=== PATIENT | male | born 1945 | race Caucasian/White ===

== ENCOUNTER → 2016-07-21 | Outpatient (CLI) | payer BC ==
[~2016-07-21] MED LIST: ACET-1487 PO; AMLO-110 PO; ASPI81TA21 PO; ATOR-24 PO; CARV6.252 PO; CYCL10TA6 PO; ENOX100I SQ; FRS/40 PO; HYDR25TA4 PO; LISI40TA PO; MELO7.5T5 PO; MULT-506 PO; NRN300 PO; OMEG10007 PO; OMEP20TA PO; OXYC-609 PO; RXC5 PO; TAMS0.4C38 PO; TRAM-10 PO; TRAM100T PO; TRAM1TAB96 PO; WARF2.5T8 PO; WARF5TAB7 PO; WARF5TAB90 PO
== END | disposition home or self-care (01) ==
LOC: C.PATHSPEC 17:46
PROVIDERS: ATTEND Plastic Surgery
DX: D03.61 Melanoma in situ of right upper limb, including shoulder (principal); D23.5 Other benign neoplasm of skin of trunk

== ENCOUNTER → 2016-09-15 | Outpatient (CLI) | payer BC ==
[2016-09-15 10:34] LABS: CALCIUM 8.8 mg/dl (8.5-10.1)
[2016-09-15 10:39] LABS: ALT/SGPT 36 U/L (12-78); AST/SGOT 14 U/L (15-37); BLOOD UREA NITROGEN 28 mg/dl (7-18); BUN/CREATININE RATIO 28.4 (10-20); CARBON DIOXIDE 29 mmol/L (21-32); CHLORIDE 107 mmol/L (98-107); CHOLESTEROL 184 mg/dl (0-200); CREATININE 0.99 mg/dl (0.60-1.40); GLUCOSE 91 mg/dl (70-99); POTASSIUM 4.4 mmol/L (3.5-5.1); SODIUM 143 mmol/L (136-145); TRIGLYCERIDES 56 mg/dl (0-150); VERY LOW DENSITY LIPOPROT CALC 11 mg/dl
[2016-09-15 10:40] LABS: ALB/GLOB RATIO 1.2 (0.9-2); ALKALINE PHOSPHATASE 59 U/L (45-117); CHOLESTEROL/HDL RATIO 2.4; HDL CHOLESTEROL 76 mg/dl; LDL CHOLESTEROL CALCULATED 97 mg/dl
[2016-09-15 10:50] LABS: ESTIMATED AVERAGE GLUCOSE 120 mg/dl; HA1C FLAG Normal (Normal)
== END | disposition home or self-care (01) ==
LOC: C.LABBC 08:25
PROVIDERS: ATTEND Family Medicine
DX: E78.5 Hyperlipidemia, unspecified (principal); I10 Essential (primary) hypertension; R73.01 Impaired fasting glucose

== ENCOUNTER → 2016-09-20 | Outpatient (CLI) | payer BC | END | disposition home or self-care (01) | LOC: C.PATHSPEC 16:35 | PROVIDERS: ATTEND Dermatology | DX: L72.0 Epidermal cyst (principal) ==

== ENCOUNTER 2016-10-28 07:29 | Inpatient (IN) | payer BC, OTHER ==
[2016-10-07 08:46] VITALS: Ht 165.1 cm; Wt 104.1 kg
--- NOTE | 2016-10-07 09:37 | PAT Medication Instructions ---
Service Date Oct 07, 2016. Current Home Medication List Acetaminophen (Tylenol Arthritis Ext Rel), 1-2 TAB PO Q8 PRN Amlodipine (Norvasc), 5 MG PO BID Aspirin Enteric Coated (Ecotrin Or Generic), 2 TABS PO QAM Atorvastatin (Lipitor), 40 MG PO QPM Carvedilol (Coreg), 6.25 MG PO BID Fish Oil (Beulah-3), 1 CAP PO DAILYBL Gabapentin (Gabapentin), 300 MG PO TID Hydrochlorothiazide (Hctz), 1 TAB PO QAM Lisinopril (Zestril), 40 MG PO QAM Meloxicam (Mobic), 15 MG PO QAM Multivitamin (Multivitamin), 1 TAB PO QAM Omeprazole (Omeprazole), 1 TAB PO QAM Tamsulosin Hcl (Flomax), 0.4 MG PO QAM Tramadol (Ultram), 50-100 MG PO Q4 PRN for Pain Tramadol Er (Ultram Er), 200 MG PO QPM PRN for Pain Medication Instructions For Your Scheduled Surgery - Check with surgeon/engraved roller inspector for instructions: Aspirin Enteric Coated (Ecotrin Or Generic), 2 81mg TABS PO QAM - Check with surgeon for instructions: Meloxicam (Mobic), 15 MG PO QAM - Hold the following medications 2 weeks prior to surgery: Fish Oil (Beulah-3), 1 CAP PO DAILYBL - Hold the following medications the morning of surgery: Tamsulosin Hcl (Flomax), 0.4 MG PO QAM Multivitamin (Multivitamin), 1 TAB PO QAM Hydrochlorothiazide (Hctz), 1 TAB PO QAM Lisinopril (Zestril), 40 MG PO QAM - Take the following medications the morning of surgery with a sip of water: Tramadol (Ultram), 50-100 MG PO Q4 PRN for Pain (okay to take up to 4 hours prior to surgery if needed) Tramadol Er (Ultram Er), 200 MG PO QPM PRN for Pain (okay to take up to 4 hours prior to surgery if needed) Omeprazole (Omeprazole), 1 TAB PO QAM Gabapentin (Gabapentin), 300 MG PO TID Carvedilol (Coreg), 6.25 MG PO BID Amlodipine (Norvasc), 5 MG PO BID Acetaminophen (Tylenol Arthritis Ext Rel), 1-2 TAB PO Q8 PRN (if needed) - Take the following medications as scheduled the night before surgery: Tramadol (Ultram), 50-100 MG PO Q4 PRN for Pain (if needed) Tramadol Er (Ultram Er), 200 MG PO QPM PRN for Pain (if needed) Gabapentin (Gabapentin), 300 MG PO TID Carvedilol (Coreg), 6.25 MG PO BID Atorvastatin (Lipitor), 40 MG PO QPM Amlodipine (Norvasc), 5 MG PO BID Acetaminophen (Tylenol Arthritis Ext Rel), 1-2 TAB PO Q8 PRN (if needed) If you have any questions please call us at [phone] or [phone] or [phone]
[2016-10-07 10:05] LABS: URINE APPEARANCE CLEAR (CLEAR); URINE BILIRUBIN NEG (NEG); URINE COLOR YELLOW; URINE NITRITE NEG (NEG); UROBILINOGEN NEG (NEG)
[2016-10-07 10:06] LABS: BASO % 0.4 %; BASO ABS # 0.02 K/uL (0-0.2); COMPLETE YES; EOS % 2.4 %; HEMATOCRIT 39.6 % (42-52); LYMPH % 32.5 %; LYMPH ABS # 1.51 K/uL (1.2-3.4); MEAN CELL VOLUME 89.8 fL (80-100); MEAN CORPUSCULAR HEMOGLOBIN 29.9 pg (25-34); MEAN CORPUSCULAR HGB CONC 33.3 g/dl (32-36); MONO % 8.2 %; NEUT % 56.5 %; PLATELET COUNT 149 K/uL (130-400); RED BLOOD COUNT 4.41 M/uL (4.7-6.1); WHITE BLOOD COUNT 4.65 K/uL (4.8-10.8)
[2016-10-07 10:10] LABS: MANUAL MICROSCOPIC REQUIRED? NO; REVIEW REQ? NO
--- NOTE | 2016-10-07 11:03 | DIAGNOSTIC IMAGING REPORT ---
CHEST PREADMISSION(PA/LAT) HISTORY:71 yearsMalePAT COMPARISON: Portable chest radiograph 07/15/2012. TECHNIQUE: PA and lateral views of the chest. FINDINGS: Cardiac silhouette is moderately enlarged. Prior median sternotomy and CABG. No pneumothorax, pleural effusion, focal airspace consolidation or overt pulmonary edema. Bones appear to be grossly intact. Multilevel anterior bridging osteophytes are noted. IMPRESSION: Cardiomegaly without acute cardiopulmonary process. The above report was generated using voice recognition software. It may contain grammatical, syntax or spelling errors. Electronically signed by: Vitor Danielle 10/07/2016 11:01 AM Dictated Date/Time: 10/07/2016 10:59 AM
[~2016-10-28] VITALS: Ht 165.1 cm; Wt 104.1 kg
[2016-10-28] VITALS (12 sets, daily range): BP systolic 125–153; BP diastolic 69–82; PULSE 61–92; TEMP 36.4–39.2; O2SAT 88–98
[~2016-10-28 07:29] MED LIST changes: -ACET-1487 PO; -AMLO-110 PO; -ASPI81TA21 PO; -ATOR-24 PO; -CARV6.252 PO; +CEFAZOLIN 2000 MG/60 ML D5W IV SCH; -CYCL10TA6 PO; -ENOX100I SQ; -FRS/40 PO; -HYDR25TA4 PO; +LACTATED RINGER'S 1000ML 1,000 ML IV SCH; -LISI40TA PO; -MULT-506 PO; -NRN300 PO; -OMEG10007 PO; -OMEP20TA PO; -OXYC-609 PO; -RXC5 PO; -TAMS0.4C38 PO; -TRAM-10 PO; -TRAM1TAB96 PO; -WARF2.5T8 PO; -WARF5TAB7 PO; -WARF5TAB90 PO
[2016-10-28] MEDS ORDERED: FENTANYL CITRATE INJ 50 MCG/1 ML 2 ML VIAL IV PRN (07:45)
[2016-10-28] MEDS ORDERED: EpHEDrine SULFATE INJ 50 MG/ML AMP IV PRN (07:45)
[2016-10-28] MEDS ORDERED: MoRPHine SULFATE 10 MG/ML CARP/VIAL IV PRN (07:45)
[2016-10-28] MEDS ORDERED: ATROPINE SULFATE 0.1 MG/ML 5ML SYR IV PRN (07:45)
[2016-10-28] MEDS ORDERED: ONDANSETRON INJ 2 MG/ML 2 ML VIAL IV PRN ×2 (07:45→13:45)
[2016-10-28] MEDS ORDERED: MIDAZOLAM HCL 1 MG/ML 2ML VIAL ONE (09:12)
[2016-10-28] MEDS ORDERED: FENTANYL CITRATE INJ 50 MCG/1 ML 2 ML VIAL ONE ×6 (09:12→13:35)
--- NOTE | 2016-10-28 09:21 | History & Physical Bridge Note ---
H&P Re-Evaluation Bridge Note: I have examined the patient, reviewed the History & Physical and in the interval since the performance of the History & Physical I have noted the following changes of clinical significance: No changes noted
--- NOTE | 2016-10-28 09:23 | History and Physical ---
History & Physical Date Oct 28, 2016. Chief Complaint Back and leg pain History of Present Illness The patient is a 71 year old male with complaints of Past Medical/Surgical History Medical Problems: (1) Acute urinary tract infection Additional History Hepatic Disease: No Endocrine Disorder: No Kidney Disease: No Hypertension: Yes Heart Disease: No Bleeding Tendencies: No Infectious Diseases: No Allergies Coded Allergies: No Known Allergies (Unverified , 10/28/16) Home Medications Scheduled Amlodipine (Norvasc), 5 MG PO BID Aspirin Enteric Coated (Ecotrin Or Generic), 2 TABS PO QAM Atorvastatin (Lipitor), 40 MG PO QPM Carvedilol (Coreg), 6.25 MG PO BID Fish Oil ([place]-3), 1 CAP PO DAILYBL Gabapentin (Gabapentin), 300 MG PO TID Hydrochlorothiazide (Hctz), 1 TAB PO QAM Lisinopril (Zestril), 40 MG PO QAM Meloxicam (Mobic), 15 MG PO QAM Multivitamin (Multivitamin), 1 TAB PO QAM Omeprazole (Omeprazole), 1 TAB PO QAM Tamsulosin Hcl (Flomax), 0.4 MG PO QAM Scheduled PRN Acetaminophen (Tylenol Arthritis Ext Rel), 1-2 TAB PO Q8 PRN Tramadol (Ultram), 50-100 MG PO Q4 PRN for Pain Tramadol Er (Ultram Er), 200 MG PO QPM PRN for Pain Physical Examination Skin: warm/dry, no rash Eyes: normal inspection, EOMI, sclerae normal ENT: normal ENT inspection, pharynx normal Head: normocephalic, atraumatic Neck: supple, no adenopathy, trachea midline Respiratory/Chest: lungs clear, normal breath sounds, no respiratory distress Cardiovascular: regular rate, rhythm, no edema, no murmur Abdomen / GI: normal bowel sounds, non tender Back: normal inspection Extremities: normal inspection, normal range of motion Neurologic/Psych: no motor/sensory deficits, alert, normal reflexes, oriented x 3 Diagnosis Lumbar spinal stenosis Plan of Treatment Lumbar decompression L2 to S1 with fusion and possible bilateral iliac bolts.
[2016-10-28] MEDS ORDERED: SODIUM CHLORIDE 0.9% PF 50 ML VIAL ONE (09:35)
[2016-10-28] MEDS ORDERED: BACITRACIN 50000 UNIT VIAL ONE (09:36)
[2016-10-28] MEDS ORDERED: BUPIVACAINE/EPINEPHRINE 0.5% MPF 1:200,000 10 ML VIAL ONE (09:38)
[2016-10-28] MEDS ORDERED: ALBUMIN HUMAN 5% 12.5 GM/250 ML VIAL IV ONE (09:46)
[2016-10-28] MEDS ORDERED: HYDROmorphone INJ 2 MG/ML SYR/VIAL ONE ×3 (10:36→13:39)
[2016-10-28] MEDS ORDERED: PROPOFOL IV EMULSION 10 MG/ML 20 ML VIAL IV ONE (11:59)
[2016-10-28] MEDS ORDERED: ONDANSETRON INJ 2 MG/ML 2 ML VIAL ONE ×2 (11:59→13:40)
[2016-10-28] MEDS ORDERED: ROCURONIUM BROMIDE 10 MG/ML 5 ML VIAL ONE (11:59)
[2016-10-28] MEDS ORDERED: LIDOCAINE HCL 2% 2 ML VIAL (20MG/ML) ONE (11:59)
[2016-10-28] MEDS ORDERED: DEXAMETHASONE SOD INJ 4 MG/ML VIAL ONE (11:59)
[2016-10-28] MEDS ORDERED: PHENYLEPHRINE 100MCG/ML 5ML SYR ONE ×2 (11:59→13:40)
[2016-10-28] MEDS ORDERED: EpHEDrine SULFATE 50MG/5ML SYR ONE ×2 (11:59→13:40)
[2016-10-28] MEDS: FLOSEAL HEMOSTATIC MATRIX 10ML TOP ONE (13:14)
[2016-10-28] MEDS ORDERED: FLOSEAL HEMOSTATIC MATRIX 10ML TOP ONE (13:25)
--- NOTE | 2016-10-28 13:30 | DIAGNOSTIC IMAGING REPORT ---
INTRAOPERATIVE RADIOGRAPHS CLINICAL HISTORY: L2-S1 spinal fusion. Fluoroscopy time: 39 seconds. FINDINGS: 4 spot fluoroscopic views of the lumbar spine are presented. There are changes from laminectomy and posterior fusion from L2 through S1. Interpedicular screws are present at all levels. The orthopedic hardware appears intact. Iliac bolts are in place. There is evidence of discectomy at L4-L5. IMPRESSION: Intraoperative images from L2 -S1 spinal fusion as above. Electronically signed by: Rios Rasmussen M.D. 10/28/2016 1:29 PM Dictated Date/Time: 10/28/2016 1:28 PM
[2016-10-28] MEDS ORDERED: SODIUM CHLORIDE 0.9% 1000ML 1,000 ML IV SCH (13:31)
[2016-10-28] MEDS ORDERED: VOLUVEN IN NSS ONE (13:38)
--- NOTE | 2016-10-28 13:39 | [facility] Operative Report ---
Operative Report Operative Date Oct 28, 2016. Pre-Operative Diagnosis Spinal Stenosis Post-Operative Diagnosis Spinal Stenosis Procedure(s) Performed Lumbar decompression medial facetectomies foraminotomies L2 3 L3 4 L4 5 L5-S1. #2 posterior spinal fusion L2 to S1. #3 bilateral SI joint fusion. #4 placement of posterior segmental instrumentation with bilateral iliac bolts L2 to S1. #5 interbody fusion L4 5. #6 placement peek cage 12 x 26 mm at L4 5. #7 placement of locally harvested morcellized autograft in the posterior lateral gutters and bilateral SI joints. #8 placement infuse collagen sponge by mask graft and posterior gutters Rocio bone graft in the interbody space. Surgeon Recreation Program Coordinator Surgeon(s) Dane Stoll PA-C Estimated Blood Loss 550ML Findings Severe spinal stenosis Specimens None per surgeon Description of Procedure Patient was met with preoperatively case discussed all questions are dressed with a point patient was taken back to the operative suite and after undergoing successful intubation placed in a prone position on the Babak table on top Eloy frame. All bony promises well-padded eyes inspected to ensure no external pressure. This point the lumbar spine was prepped and draped nostril fashion. Sharp dissection assistance of Bovie cautery performed onto an exposing the lamina and transverse processes of L2-L3 L4-L5 sacral alar in the bilateral SI joints. From a caudal to cephalad fashion complete laminectomy of L5 L4 L3 L2 was performed addressing severe lateral recess and foraminal disease. Pedicle screws were then placed in L2-L3 L4 L5 S1 levels bilaterally with assistance of fluoroscopy as well as bilateral iliac bolts. The appropriately sized chula was then placed. Through a transforaminal port and left complete discectomy of L4 5 was performed and plate could subcortical bleeding bone and a 12 x 26 mm peek cage filled Rocio bone grafting tapped in position. The chula locked and final position bilaterally including a cross- link. The transverse processes of L2-L3 L4-L5 sacral alar in the bilateral SI joints were then burred to subcortical bleeding bone. Infuse collagen sponge mask graft locally harvested morcellized autograft placed in the posterior lateral gutters SI joints. A 15 round ROSY drain and inserted. Incision then closed with 1 Vicryl in the fascia 2-0 Vicryl subcutaneously for Monocryl for final skin closure Steri-Strip sterile dressing placed. Patient awakened and taken to PACU stable condition. Please note Billy Stoll was present throughout the entire procedure involved in patient positioning complex portions of the procedure and final skin closure. I attest to the content of the Intraoperative Record and any orders documented therein. Any exceptions are noted below.
[2016-10-28] MEDS ORDERED: NEOSTIGMINE METHYLSULFATE 1 MG/ML 10ML VIAL ONE (13:40)
[2016-10-28] MEDS ORDERED: GLYCOPYRROLATE INJ 0.2 MG/ML VIAL ONE (13:40)
[2016-10-28] MEDS ORDERED: CEFAZOLIN SOD 1 GM VIAL ONE (13:44)
[2016-10-28] MEDS ORDERED: DO NOT ADMINISTER FLU VACCINE PRN ×3 (13:45)
[2016-10-28] MEDS ORDERED: SOD PHOSPHATE/SOD BIPHOSPHATE ENEMA 132 ML BTL PR PRN (13:45)
[2016-10-28] MEDS ORDERED: BISACODYL 10 MG SUPP PR PRN (13:45)
[2016-10-28] MEDS ORDERED: NALOXONE HCL 0.4 MG/1 ML VIAL/CARP IV PRN ×2 (13:45)
[2016-10-28] MEDS ORDERED: LORAZEPAM INJ 0.5 MG in SYRINGE 0.75 ML IV PRN (13:45)
[2016-10-28] MEDS ORDERED: MAGNESIUM HYDROXIDE SUSP 30 ML UDC PO PRN (13:45)
[2016-10-28] MEDS ORDERED: ACETAMINOPHEN 500 MG TAB PO PRN (13:45)
[2016-10-28] MEDS ORDERED: LORAZEPAM 0.5 MG TAB PO PRN (13:45)
[2016-10-28] MEDS ORDERED: ACETAMINOPHEN IV 100 ML IV PRN (13:45)
[2016-10-28] MEDS ORDERED: ALUMINUM/MAGNESIUM SUSP 30 ML UDC PO PRN (13:45)
[2016-10-28] MEDS ORDERED: PROMETHAZINE HCL INJ 12.5 MG in SODIUM CHLORIDE 0.9% 50ML 50 ML IV PRN (13:45)
[2016-10-28] MEDS ORDERED: DO NOT ADMINISTER PNEUMOCOCCAL VACCINE PRN ×2 (13:45)
[2016-10-28] MEDS ORDERED: FAMOTIDINE 20 MG TAB PO PRN (13:45)
[2016-10-28] MEDS ORDERED: hydrOXYzine HCL 25 MG TAB PO PRN (13:45)
[2016-10-28] MEDS ORDERED: HYDROmorphone HCL 0.5MG/ML 50 ML CASSETTE ONE (13:55)
--- NOTE | 2016-10-28 15:41 | Anesthesiology Progress Note ---
Anesthesia Post Op Note Date & Time Oct 28, 2016 at 15:41 Vital Signs Pain Intensity: 4 Vital Signs Past 12 Hours Date Time Temp Pulse Resp B/P (MAP) Pulse Ox O2 Delivery O2 Flow Rate FiO2 10/28/16 15:25 36.8 88 22 132/72 95 Nasal Cannula 2 10/28/16 15:15 90 16 131/72 96 Nasal Cannula 2 Arterial Line 10/28/16 15:05 85 18 135/69 94 Nasal Cannula 2 10/28/16 14:55 86 22 132/68 95 Nasal Cannula 2 Arterial Line 10/28/16 14:45 36.5 84 20 126/65 92 Nasal Cannula 2 10/28/16 14:35 80 22 127/65 93 Nasal Cannula 2 10/28/16 14:25 82 20 134/67 94 Mask 10 10/28/16 14:15 80 22 133/65 95 Mask 10 115/55 10/28/16 14:05 86 16 128/65 97 Mask 10 10/28/16 13:55 36.2 81 14 135/71 97 Mask 10 10/28/16 08:46 36.8 61 18 145/81 10/28/16 08:26 Room Air Notes Mental Status: alert / awake / arousable, participated in evaluation Pt Amnestic to Procedure: Yes Nausea / Vomiting: adequately controlled Pain: adequately controlled Airway Patency, RR, SpO2: stable & adequate BP & HR: stable & adequate Hydration State: stable & adequate Anesthetic Complications: no major complications apparent
[2016-10-28] MEDS: HYDROmorphone HCL 0.5MG/ML 50 ML CASSETTE IV PRN ×2 (16:27→23:12)
[2016-10-28] MEDS: SODIUM CHLORIDE 0.9% 1000ML 1,000 ML IV SCH ×2 (17:22→21:26)
[2016-10-28] MEDS: CEFAZOLIN IV 2,000 MG in DEXTROSE 5% 50ML 50 ML IV SCH (17:54)
[2016-10-28] MEDS ORDERED: ATORVASTATIN 40 MG TAB PO SCH (21:00)
[2016-10-28] MEDS: DEXAMETHASONE INJ 6 MG in SYRINGE 0 ML IV SCH (21:12)
[2016-10-28] MEDS: CARVEDILOL 6.25 MG TAB PO SCH (21:15)
[2016-10-28] MEDS: AMLODIPINE BESYLATE 5 MG TAB PO SCH (21:16)
[2016-10-28] MEDS: DOCUSATE SODIUM/SENNA 50/8.6MG TAB PO SCH (21:16)
[2016-10-28] MEDS: GABAPENTIN 300 MG CAP PO SCH (21:16)
[2016-10-28] MEDS ORDERED: NURSING DECISION MEDICATION ORDER SCH (22:30)
[2016-10-28] MEDS ORDERED: COUGH DROP (SUGAR FREE) LOZ 24 LOZ/1 BOX PO PRN (22:45)
[2016-10-29] MEDS: SODIUM CHLORIDE 0.9% 1000ML 1,000 ML IV SCH ×2 (02:21→13:59)
[2016-10-29] MEDS: CEFAZOLIN IV 2,000 MG in DEXTROSE 5% 50ML 50 ML IV SCH (02:21)
[2016-10-29 03:39] VITALS: BP 124/79; PULSE 82; TEMP 36.8; O2SAT 95
[2016-10-29] MEDS: DEXAMETHASONE INJ 6 MG in SYRINGE 0 ML IV SCH ×2 (03:40→12:48)
[2016-10-29] MEDS ORDERED: DC PCA SCH (06:00)
[2016-10-29] MEDS ORDERED: HYDROmorphone INJ 0.5 MG/0.5 ML SYR IV PRN (06:00)
[2016-10-29] MEDS ORDERED: HYDROmorphone INJ 1 MG/ML SYR IV PRN (06:00)
[2016-10-29] MEDS ORDERED: NURSING VERBAL MED ORDER ONE ×2 (06:30→18:15)
[2016-10-29 07:06] VITALS: BP 176/93; PULSE 85; TEMP 36.8; O2SAT 93
[2016-10-29] MEDS: OXYCODONE HCL IR 5 MG TAB (IMMEDIATE RELEASE) PO PRN ×2 (08:45→10:59)
[2016-10-29] MEDS: TAMSULOSIN HCL 0.4 MG CAP PO SCH (08:46)
[2016-10-29] MEDS: CARVEDILOL 6.25 MG TAB PO SCH (08:46)
[2016-10-29] MEDS: AMLODIPINE BESYLATE 5 MG TAB PO SCH (08:47)
[2016-10-29] MEDS: ASPIRIN 81 MG ECTAB PO SCH (08:47)
[2016-10-29] MEDS: PANTOprazole SOD 40 MG TAB PO SCH (08:47)
[2016-10-29 08:48] LABS: COMPLETE YES; IG% 0.2 %; LYMPH % 5.9 %; LYMPH ABS # 0.73 K/uL (1.2-3.4); MEAN CELL VOLUME 89.1 fL (80-100); MEAN CORPUSCULAR HEMOGLOBIN 29.7 pg (25-34); MEAN CORPUSCULAR HGB CONC 33.3 g/dl (32-36); MEAN PLATELET VOLUME 9.8 fL (7.4-10.4); MONO % 2.6 %; NEUT % 91.3 %; PLATELET COUNT 178 K/uL (130-400); RED BLOOD COUNT 4.04 M/uL (4.7-6.1)
[2016-10-29] MEDS: GABAPENTIN 300 MG CAP PO SCH ×3 (08:48→20:31)
[2016-10-29] MEDS ORDERED: LISINOPRIL 40 MG TAB PO SCH (09:00)
[2016-10-29] MEDS ORDERED: HYDROCHLOROTHIAZIDE 25 MG TAB PO SCH (09:00)
[2016-10-29 09:18] LABS: BUN/CREATININE RATIO 16.7 (10-20); CALCIUM 8.6 mg/dl (8.5-10.1); CREATININE 0.99 mg/dl (0.60-1.40); POTASSIUM 3.9 mmol/L (3.5-5.1)
--- NOTE | 2016-10-29 09:57 | Progress Note ---
Progress Note Date of Service Oct 29, 2016. Progress Note Patient's postop day 1. Back pain is controlled. Leg pain improved. Vital signs are stable. ROSY drain decreasing appropriately. On exam he is in chair at bedside as good strength testing. Assessment status post multilevel lumbar decompression fusion. Plan at this point we'll initiate physical therapy advance his bowel regimen. We anticipate possible discharge to rehabilitation early next week.
[2016-10-29 11:35] VITALS: BP 126/78; PULSE 74; O2SAT 92
[2016-10-29 12:47] VITALS: BP 158/76; PULSE 75; O2SAT 93
[2016-10-29] MEDS ORDERED: ATORVASTATIN 40 MG TAB PO ONE (13:45)
[2016-10-29 14:56] VITALS: BP 161/81; PULSE 84; TEMP 36.7; O2SAT 94
--- NOTE | 2016-10-29 15:32 | INTERNAL MEDICINE CONSULTATION ---
DATE OF CONSULTATION: 10/29/2016 DATE OF CONSULTATION: 10/29/2016 REQUESTED BY: Dr. Cortez. REASON FOR CONSULTATION: Loss of coordination. HISTORY OF PRESENT ILLNESS: The patient is a 71-year-old man with past medical history of coronary artery disease status post CABG x3, hypertension, dyslipidemia. The patient had a long history of spinal stenosis who failed outpatient conservative management and was admitted for elective lower back surgery on 10/28/2016. The patient did have a lumbar decompression L2-S1 with posterior spinal fusion L2-S1 and bilateral SI joint fusion. As per Dr. Cortez patient did have titanium in the prosthesis that is MRI compatible. The patient tolerated the procedure well. There were no events, but when he woke up this morning she was trying to have his lunch. His and the patient noticed significant incoordination in his hand movement. He was unable to land the food in his mouth with the fork so the nurse came and confirms that this observation and based on that, we were medically consulted to evaluate the patient. REVIEW OF SYSTEMS: Denies any headache, double vision, blurry vision. Denies any chest pain on percussion. No cough, wheezing, shortness of breath. No diarrhea, blood in the stool or burning sensation in the urine or blood. Rest of the review of system is negative. PAST MEDICAL HISTORY: 1. As mentioned in HPI, history of coronary artery disease status post CABG. 2. Dyslipidemia. 3. Hypertension. 4. Obesity. 5. Clinically suspected obstructive sleep apnea. As per , he has multiple apneic episodes when he sleeps. FAMILY HISTORY: Positive for coronary artery disease in his mother and blood clots in his sister. SOCIAL HISTORY: Denies alcohol or smoking. CURRENT HOME MEDICATIONS: 1. Amlodipine 5 mg daily. 2. Aspirin 81 mg daily. 3. Atorvastatin 40 mg daily. 4. Carvedilol 6.25 b.i.d. 5. Gabapentin. 6. Hydrochlorothiazide 25 mg. 7. Lisinopril 40 mg. 8. Meloxicam. 9. Omeprazole. 10. Flomax. 11. Tramadol. ALLERGIES: No known drug allergy. PHYSICAL EXAMINATION: GENERAL: The patient is obese, not in acute distress. VITAL SIGNS: Temperature is 36.8, heart rate 82, respirations 16, blood pressure 124/79, currently saturation is 93% on room air. HEAD, EYES, EARS, NOSE, AND THROAT: No jaundice, no pallor, moist mucous membranes. NECK: Supple. HEART: S1, S2 normal. No gallop, rub or murmur. LUNGS: Clear to auscultation bilaterally. Normal chest wall expansion. ABDOMEN: Soft, nontender, nondistended. NEUROLOGIC: Awake, alert, oriented to time, place, and person. Moves all extremities. Sensation are intact. Cranial nerves II-XII appear to be intact. The patient does have slightly impaired mbagxn-ea-palx test bilaterally. LABORATORY DATA: Sodium 140, potassium 3.9. BUN 17, creatinine 0.9. White blood cell count 12.3, hemoglobin is 12 and platelet count is 178. ASSESSMENTS: 1. Acute loss of coordination, possible cerebellar transient ischemic attack/minor cerebrovascular accident. 2. Hypertension. 3. Dyslipidemia. 4. Clinically suspected obstructive sleep apnea. 5. Coronary artery disease status post coronary artery bypass graft. 6. Clinically suspected obstructive sleep apnea with apneic episodes witnessed by his . PLAN: 1. At this point, we will hold all blood pressure medications for permissive hypertension. We will start patient on IV fluid hydration, normal saline. Continue aspirin. Will give him his Lipitor dose stat instead of later tonight to help stabilizing any atheroma. 2. We will obtain carotid ultrasound given his history of being vasculopathic. 3. We will obtain MRI of the brain and MRA of the brain to rule in or out any stroke. We will keep the blood pressure towards the high side even if the MRI is negative as it possibly could be a TIA or pending CVA. 4. We will consult neurologist, Dr. Ron, to see the patient and help us out with the current situation to verify the nature of patient's symptoms. Case discussed with Dr. Cortez and the patient's prosthesis is MRI compatible, which is a great blessing. 5. We will order a 2D echo with bubble study for evaluation of CVA/TIA. 6. Case discussed with family and they are in agreement with the current plan.
[2016-10-29] MEDS: TRAMADOL HCL 50 MG TAB PO PRN ×2 (16:04→20:31)
--- NOTE | 2016-10-29 17:51 | DIAGNOSTIC IMAGING REPORT ---
MRI OF THE BRAIN WITHOUT CONTRAST CLINICAL HISTORY: Acute onset incoordination / possible cerebellar CVA. COMPARISON STUDY: MRI of the brain July 13, 2006. TECHNIQUE: Utilizing a 1.5 Ludivina magnet and dedicated coil, multiplanar, multiecho imaging of the brain was performed without IV contrast. FINDINGS: There are no areas of restricted diffusion. No acute intracranial hemorrhage, midline shift or mass effect is present. Brain volume is normal for age. Ventricular system is normal. The basilar cisterns are patent. There are no extra-axial collections. Flow-voids for the major intracranial vessels are present. No intracranial masses identified on this unenhanced exam. Several small white matter T2 hyperintense foci are similar to prior MRI of July 13, 2006 and suggest mild small vessel disease. Calvarial signal is maintained. Orbits and sinuses are unremarkable. IMPRESSION: 1. No acute intracranial findings. 2. Mild small vessel disease. Electronically signed by: Jr Sethi M.D. 10/29/2016 5:50 PM Dictated Date/Time: 10/29/2016 5:46 PM
--- NOTE | 2016-10-29 18:05 | DIAGNOSTIC IMAGING REPORT ---
MRA OF THE INTRACRANIAL CIRCULATION WITHOUT CONTRAST CLINICAL HISTORY: Acute onset incoordination. Possible cerebrovascular accident. COMPARISON STUDY: None. TECHNIQUE: Utilizing a 1.5 Ludivina magnet and 3-D [id number] technique, unenhanced MRA of the intracranial circulation was obtained. FINDINGS: The bilateral M1, M2, A1 and A2 segments are patent. No abrupt vessel cut off is identified. No intracranial aneurysm is identified. The left vertebral artery is dominant and patent. The right vertebral artery likely ends in PICA. IMPRESSION: 1. No abrupt vessel cut off or intracranial aneurysm identified. 2. Dominant, patent left vertebral artery. Diminutive right vertebral artery which likely ends in PICA. Electronically signed by: Jr Sethi M.D. 10/29/2016 6:04 PM Dictated Date/Time: 10/29/2016 6:01 PM
--- NOTE | 2016-10-29 20:06 | DIAGNOSTIC IMAGING REPORT ---
CAROTID ARTERY ULTRASOUND CLINICAL HISTORY: CVA/TIA COMPARISON STUDY: None. TECHNIQUE: Real-time, grayscale, and color Doppler sonography of the carotid and vertebral arteries was performed. Images were viewed in the transverse and longitudinal planes. FINDINGS: There is mild atherosclerotic plaque. Velocity measurements are listed below. COMMON CAROTID PEAK SYSTOLIC VELOCITY (CM/S): RIGHT 127 LEFT 121 ICA PEAK SYSTOLIC VELOCITY (CM/S): RIGHT 75 LEFT 77 The systolic ratios between the internal to common carotid arteries were normal. Antegrade flow is seen in the vertebral arteries. The external carotid arteries are patent. Blood pressures could not be obtained in this patient. IMPRESSION: No evidence of a hemodynamically significant stenosis. Electronically signed by: Jr Sethi M.D. 10/29/2016 8:05 PM Dictated Date/Time: 10/29/2016 8:03 PM
[2016-10-29] MEDS: DOCUSATE SODIUM/SENNA 50/8.6MG TAB PO SCH (20:31)
[2016-10-29 23:10] VITALS: BP 120/69; PULSE 84; TEMP 36.9; O2SAT 98
[2016-10-30] MEDS: SODIUM CHLORIDE 0.9% 1000ML 1,000 ML IV SCH ×2 (01:47→13:49)
[2016-10-30] MEDS: POLYETHYLENE (MIRALAX) 17 GM PACK PO SCH ×4 (05:47→23:58)
[2016-10-30] MEDS: TRAMADOL HCL 50 MG TAB PO PRN ×2 (06:12→16:27)
[2016-10-30 07:11] VITALS: BP 149/81; PULSE 74; TEMP 36.8; O2SAT 98
[2016-10-30 07:59] LABS: BASO % 0.1 %; BASO ABS # 0.01 K/uL (0-0.2); COMPLETE YES; HEMATOCRIT 32.3 % (42-52); IG% 0.3 %; LYMPH % 8.8 %; LYMPH ABS # 1.36 K/uL (1.2-3.4); MEAN CELL VOLUME 89.5 fL (80-100); MEAN CORPUSCULAR HEMOGLOBIN 30.2 pg (25-34); MEAN CORPUSCULAR HGB CONC 33.7 g/dl (32-36); MEAN PLATELET VOLUME 9.5 fL (7.4-10.4); MONO % 7.4 %; NEUT % 83.4 %; PLATELET COUNT 177 K/uL (130-400); RED BLOOD COUNT 3.61 M/uL (4.7-6.1); WHITE BLOOD COUNT 15.53 K/uL (4.8-10.8)
[2016-10-30] MEDS: OXYCODONE HCL IR 5 MG TAB (IMMEDIATE RELEASE) PO PRN ×3 (08:08→17:46)
[2016-10-30] MEDS: TAMSULOSIN HCL 0.4 MG CAP PO SCH (08:09)
[2016-10-30] MEDS: PANTOprazole SOD 40 MG TAB PO SCH (08:10)
[2016-10-30] MEDS: GABAPENTIN 300 MG CAP PO SCH ×3 (08:10→20:46)
[2016-10-30] MEDS: ASPIRIN 81 MG ECTAB PO SCH (08:10)
[2016-10-30 08:32] LABS: ALB/GLOB RATIO 1.1 (0.9-2); BUN/CREATININE RATIO 22.2 (10-20); CREATININE 0.93 mg/dl (0.60-1.40); MAGNESIUM 2.2 mg/dl (1.8-2.4); PHOSPHORUS 2.1 mg/dl (2.5-4.9); POTASSIUM 4.5 mmol/L (3.5-5.1)
--- NOTE | 2016-10-30 09:01 | Neurology Consultation ---
Neurology Consultation Date of Consultation: Oct 30, 2016. Attending Physician: Markel Cortez D.O. Primary Care Physician: No Doctor, Assigned Reason for Consultation: Incoordination History of Present Illness Source: patient, hospital records The patient is a 71-year-old male who underwent lumbar decompressive surgery with Dr. Cortez 2 days ago. Yesterday afternoon, at around 1:20 PM, he was noted to have difficulty feeding himself according to his . He recalls feeling incoordinated with both hands. The patient does admit that he has been experiencing some mild generalized tremulousness but is not really certain when this issue began. It may be more prominent in the context of his current hospitalization, however. He denies a history of tremor, ataxia, or Parkinson's disease. The patient was evaluated by his nurse at the time of symptom onset. No significant abnormalities were felt to be present at that time, however. An internal medicine consultation with Dr. Fleming was obtained at that time. He did appreciate slight bilateral upper extremity dysmetria with finger to nose testing prompting some concern for a small stroke. Brain MRI and MRA of the head or subsequently completed. I reviewed the images as well as the radiologist 's interpretation of these tests. The brain MRI was negative for acute or subacute infarct. The study does reveal mild to moderate small vessel ischemic disease throughout the brain parenchyma. MR angiography of the head reveals a dominant left vertebral artery with the right vertebral artery ending in the ALLIGATOR HUNTER. A carotid duplex was unremarkable. A blood pressure obtained at 12:47 yesterday afternoon and was 158/76 with a heart rate of 75 bpm. Past Medical/Surgical History Past medical history notable for hypertension, hyperlipidemia, coronary artery disease, history of CABG, and lumbar spinal stenosis. He is prescribed aspirin 81 mg per day, Lipitor, antihypertensives, gabapentin, and tramadol as an outpatient. Family History Family history notable for coronary artery disease in the mother Social History Smoking Status: Never smoker Drug Use: none Marital Status: Housing Status: lives with family Occupation Status: employed Allergies Coded Allergies: No Known Allergies (Unverified , 10/28/16) Current Inpatient Medications Current Inpatient Medications Medications (Trade) Dose Ordered Sig/Omid Route Start Time Stop Time Status Last Admin Dose Admin Promethazine HCl 12.5 mg/Sodium Chloride 50.5 ml @ 202 mls/hr Q6H PRN IV 10/28/16 13:45 11/27/16 13:44 Ondansetron HCl (Zofran Inj) 4 mg Q6H PRN IV 10/28/16 13:45 11/27/16 13:44 10/28/16 21:26 4 MG Lorazepam (Ativan Tab) 0.5 mg Q8H PRN PO 10/28/16 13:45 11/27/16 13:44 Lorazepam 0.5 mg/ Syringe 1 ml @ 1 mls/min Q8H PRN IV 10/28/16 13:45 11/27/16 13:44 Pneumococcal Polysaccharide Vaccine 1 ea PRN PRN N/A 10/28/16 13:45 11/27/16 13:44 Influenza Virus Vacc Triv Types A&B 1 ea PRN PRN N/A 10/28/16 13:45 11/27/16 13:44 Polyethylene (Miralax Powder Packet) 17 gm Q6 PO 10/30/16 06:00 11/29/16 05:59 10/30/16 05:47 17 GM Bisacodyl (Dulcolax Supp) 10 mg DAILY PRN [place] 10/28/16 13:45 11/27/16 13:44 Magnesium Hydroxide (Milk Of Magnesia Susp) 30 ml DAILY PRN PO 10/28/16 13:45 11/27/16 13:44 Hydromorphone HCl (Dilaudid Inj) 0.5 mg Q3H PRN IV 10/29/16 06:00 11/12/16 05:59 Oxycodone HCl (Roxicodone Immediate Rel Tab) 5-10mg prn moderate to sev... Q4H PRN PO 10/29/16 06:00 11/12/16 05:59 10/30/16 08:08 10 MG Acetaminophen (Tylenol Tab) 1,000 mg Q8H PRN PO 10/28/16 13:45 11/27/16 13:44 Acetaminophen 100 ml @ 400 mls/hr Q8H PRN IV 10/28/16 13:45 11/27/16 13:44 Naloxone HCl (Narcan Inj) 0.1 mg Q5M PRN IV 10/28/16 13:45 11/27/16 13:44 Senna/Docusate Sodium (Senokot S Tab) 2 tab HS PO 10/28/16 21:00 11/27/16 20:59 10/29/16 20:31 2 TAB Sodium Biphosphate/ Sodium Phosphate (Fleet Enema) 132 ml ONE PRN CO 10/28/16 13:45 11/27/16 13:44 Hydroxyzine HCl (Vistaril Tab) 25 mg Q8H PRN PO 10/28/16 13:45 11/27/16 13:44 Al Hydroxide/Mg Hydroxide (Maalox Susp) 30 ml Q6H PRN PO 10/28/16 13:45 11/27/16 13:44 Famotidine (Pepcid Tab) 20 mg Q12 PRN PO 10/28/16 13:45 11/27/16 13:44 Diphenhydramine HCl (Benadryl Cap) 25 mg Q6H PRN PO 10/28/16 13:45 11/27/16 13:44 Amlodipine Besylate (Norvasc Tab) 5 mg BID PO 10/28/16 21:00 11/27/16 20:59 Future hold 10/29/16 08:47 5 MG Aspirin (Ecotrin Tab) 162 mg QAM PO 10/29/16 09:00 11/28/16 08:59 10/30/16 08:10 162 MG Gabapentin (Neurontin Cap) 300 mg TID PO 10/28/16 21:00 11/27/16 20:59 10/30/16 08:10 300 MG Tamsulosin HCl (Flomax Cap) 0.4 mg QAM PO 10/29/16 09:00 11/28/16 08:59 10/30/16 08:09 0.4 MG Tramadol HCl (Ultram Tab) 50 mg Q4 PRN PO 10/28/16 13:45 11/27/16 13:44 10/30/16 06:12 50 MG Pantoprazole Sodium (Protonix Tab) 40 mg QAM PO 10/29/16 09:00 11/28/16 08:59 10/30/16 08:10 40 MG Hydromorphone HCl (Dilaudid Inj) 1 mg Q3H PRN IV 10/29/16 06:00 11/12/16 05:59 Menthol (Nice Wendi) 1 wendi PRN PRN PO 10/28/16 22:45 11/27/16 22:44 10/28/16 23:58 1 WENDI Sodium Chloride 1,000 ml @ 80 mls/hr [id number] IV 10/29/16 13:45 11/28/16 13:44 10/30/16 01:47 80 MLS/HR Atorvastatin Calcium (Lipitor Tab) 40 mg QPM PO 10/30/16 21:00 11/27/16 20:59 Review of Systems Constitutional: No fever or chills Eyes: No vision loss or diplopia ENT: No vertigo or acute hearing loss Cardiovascular: No chest pain or palpitations Musculoskeletal: Patient complains of persistent low back pain in the postsurgical setting with difficulty standing up on his own Neurological: As per history of present illness A full 10 point review of systems was obtained in this patient with pertinent positives and negatives described in the history of present illness and listed above, all other systems reviewed and are negative. Physical Exam Vital Signs (Past 24 Hrs): Date Time Temp Pulse Resp B/P (MAP) Pulse Ox O2 Delivery O2 Flow Rate FiO2 10/30/16 07:11 36.8 74 19 149/81 (103) 98 Room Air 10/30/16 00:25 Room Air 10/29/16 23:10 36.9 84 18 120/69 (86) 98 Room Air 10/29/16 16:50 Room Air 10/29/16 14:56 36.7 84 18 161/81 (107) 94 Room Air 10/29/16 12:47 75 16 158/76 (103) 93 Room Air 10/29/16 11:35 74 16 126/78 (94) 92 Room Air The patient is a well-developed, well-nourished elderly male. He is sitting up in a bedside chair and does not appear to be in significant distress. He is alert and oriented to person place and time. Recent and remote memory intact. Attention and concentration normal. Patient exhibits a normal spontaneous speech pattern as well as an age-appropriate fund of knowledge and normal vocabulary. Visual simmons full to confrontation. Visual acuity normal. Pupils equal round reactive to light and accommodation. Eye movements normal. No nystagmus. Facial sensation intact bilaterally. There is normal facial symmetry and strength. No facial droop. Hearing intact bilaterally. Palate elevates to midline. Shoulder shrug strength intact bilaterally. Tongue protrudes to midline. Sensation intact to light touch, temperature, vibration, and proprioception for all 4 limbs. Deep tendon reflexes are intact and symmetrical for the upper and lower extremities. There is no dysdiadochokinesia or dysmetria with finger to nose or heel to bains. Ophthalmoscopic examination reveals normal-appearing optic disks and posterior segments. No papilledema or hemorrhages. Normal carotid pulses bilaterally, no bruits to auscultation. Gait and station cannot be reliably tested due to postsurgical pain. Patient was unable to stand up on his own out of the bedside chair. Muscle strength normal for the arms and legs bilaterally. No hemiparesis, the patient does have a very mild, symmetric, bilateral upper extremity postural and action tremor. Laboratory Results Past 24 Hours: 10/30/16 07:44 Red Blood Count 3.61, Mean Corpuscular Volume 89.5, Mean Corpuscular Hemoglobin 30.2, Mean Corpuscular Hemoglobin Concent 33.7, Mean Platelet Volume 9.5, Neutrophils (%) (Auto) 83.4, Lymphocytes (%) (Auto) 8.8, Monocytes (%) (Auto) 7.4, Eosinophils (%) (Auto) 0.0, Basophils (%) (Auto) 0.1, Neutrophils # (Auto) 12.96, Lymphocytes # (Auto) 1.36, Monocytes # (Auto) 1.15, Eosinophils # (Auto) 0.00, Basophils # (Auto) 0.01 10/30/16 07:44 Test 10/30/16 07:44 White Blood Count 15.53 K/uL (4.8-10.8) Red Blood Count 3.61 M/uL (4.7-6.1) Hemoglobin 10.9 g/dL (14.0-18.0) Hematocrit 32.3 % (42-52) Mean Corpuscular Volume 89.5 fL (80-100) Mean Corpuscular Hemoglobin 30.2 pg (25-34) Mean Corpuscular Hemoglobin Concent 33.7 g/dl (32-36) Platelet Count 177 K/uL (130-400) Mean Platelet Volume 9.5 fL (7.4-10.4) Neutrophils (%) (Auto) 83.4 % Lymphocytes (%) (Auto) 8.8 % Monocytes (%) (Auto) 7.4 % Eosinophils (%) (Auto) 0.0 % Basophils (%) (Auto) 0.1 % Neutrophils # (Auto) 12.96 K/uL (1.4-6.5) Lymphocytes # (Auto) 1.36 K/uL (1.2-3.4) Monocytes # (Auto) 1.15 K/uL (0.11-0.59) Eosinophils # (Auto) 0.00 K/uL (0-0.5) Basophils # (Auto) 0.01 K/uL (0-0.2) RDW Standard Deviation 46.8 fL (36.4-46.3) RDW Coefficient of Variation 14.2 % (11.5-14.5) Immature Granulocyte % (Auto) 0.3 % Immature Granulocyte # (Auto) 0.05 K/uL (0.00-0.02) Anion Gap 6.0 mmol/L (3-11) Est Creatinine Clear Calc Drug Dose 83.3 ml/min Estimated GFR () 96.7 Estimated GFR (Non- 83.5 BUN/Creatinine Ratio 22.2 (10-20) Calcium Level 9.0 mg/dl (8.5-10.1) Phosphorus Level 2.1 mg/dl (2.5-4.9) Magnesium Level 2.2 mg/dl (1.8-2.4) Total Bilirubin 0.3 mg/dl (0.2-1) Aspartate Amino Transf (AST/SGOT) 37 U/L (15-37) Alanine Aminotransferase (ALT/SGPT) 32 U/L (12-78) Alkaline Phosphatase 57 U/L (45-117) Total Protein 6.4 gm/dl (6.4-8.2) Albumin 3.4 gm/dl (3.4-5.0) Globulin 3.0 gm/dl (2.5-4.0) Albumin/Globulin Ratio 1.1 (0.9-2) Chemistry Specimen Hemolysis Imaging I reviewed the images and radiologist's interpretation of the recently completed MRI/MRA of the brain. Results are as described in the history of present illness. Additional review testing includes an unremarkable carotid Doppler. Impression This patient has a very mild bilateral, symmetric, upper extremity postural and action tremor. There is no evidence of an acute or subacute stroke on recently completed brain MRI and no evidence of significant occlusive vascular disease. He does have mild to moderate chronic small vessel ischemic change related to age. I suspect that his tremor is more of a chronic issue that may be more prominent due to physiologic stressors in the context of his recent surgery and hospitalization. Plan Patient may continue with aspirin as well as his other outpatient medications. I would not recommend starting specific treatment for his tremor at this time as I think it will gradually improve as he recovers from his recent surgery and gets back into his regular routine. I have no further immediate neurological recommendations. Please contact me if I may be of further assistance.
--- NOTE | 2016-10-30 09:16 | Progress Note ---
Progress Note Date of Service Oct 30, 2016. Progress Note Patient is feeling better today. Feels better improved motor control was upper extremities well eating today. Complaining of back pain only. Leg symptoms are improved. Exam vital signs are stable ROSY drain decreasing purply. His good strength testing. Assessment status post multilevel lumbar depression fusion replant this time will continue physical therapy today again considering rehabilitation early next week.
[2016-10-30] MEDS: AMLODIPINE BESYLATE 5 MG TAB PO SCH ×2 (09:50→20:46)
[2016-10-30] MEDS ORDERED: NURSING VERBAL MED ORDER ONE (14:15)
--- NOTE | 2016-10-30 14:43 | Progress Note ---
Subjective Date of Service: Oct 30, 2016. Subjective Pt evaluation today including: conversation w/ patient, physical exam, chart review, lab review, review of studies, review of inpatient medication list Reports tremor in bilateral feet but improved Resting comfortably in bed Started to cry during discussion but felt better once stroke ruled out Review of Systems Constitutional: No fever, No chills, No weight loss, No weakness, No fatigue ENT: No hearing loss, No unusual epistaxis, No nasal symptoms, No sore throat Respiratory: No cough, No sputum, No wheezing, No shortness of breath, No dyspnea on exertion Cardiac: No chest pain, No orthopnea, No PND, No edema, No claudication Abdomen: No pain, No nausea, No vomiting, No diarrhea, No constipation Musculoskeletal: + joint pain, No muscle pain, No swelling, No calf pain Male : No dysuria, No urinary frequency, No incontinence, No slowing stream Neurologic: No memory loss, No paralysis, No weakness, No numbness/tingling Psychiatric: + depression symptoms, + anxiety, No anhedonism, No insomnia Endo: No fatigue, No excessive thirst Skin: No rash, No itch Objective Vital Signs Date Time Temp Pulse Resp B/P (MAP) Pulse Ox O2 Delivery O2 Flow Rate FiO2 10/30/16 07:20 Room Air 10/30/16 07:11 36.8 74 19 149/81 (103) 98 Room Air 10/30/16 00:25 Room Air 10/29/16 23:10 36.9 84 18 120/69 (86) 98 Room Air 10/29/16 16:50 Room Air 10/29/16 14:56 36.7 84 18 161/81 (107) 94 Room Air Physical Exam General Appearance: WD/WN, + mild distress Neck: supple, no adenopathy, thyroid normal, no JVD Respiratory/Chest: chest non-tender, lungs clear, normal breath sounds, no respiratory distress Cardiovascular: no edema, no gallop, no JVD, no murmur Abdomen: normal bowel sounds, non tender, soft, no organomegaly Extremities: normal range of motion, non-tender, normal inspection, no pedal edema Neurologic/Psychiatric: no motor/sensory deficits, alert, normal mood/affect, oriented x 3 Skin: normal color, warm/dry, no rash Lymphatic: no adenopathy Laboratory Results Last 24 Hours Test 10/30/16 07:44 White Blood Count 15.53 K/uL Red Blood Count 3.61 M/uL Hemoglobin 10.9 g/dL Hematocrit 32.3 % Mean Corpuscular Volume 89.5 fL Mean Corpuscular Hemoglobin 30.2 pg Mean Corpuscular Hemoglobin Concent 33.7 g/dl Platelet Count 177 K/uL Mean Platelet Volume 9.5 fL Neutrophils (%) (Auto) 83.4 % Lymphocytes (%) (Auto) 8.8 % Monocytes (%) (Auto) 7.4 % Eosinophils (%) (Auto) 0.0 % Basophils (%) (Auto) 0.1 % Neutrophils # (Auto) 12.96 K/uL Lymphocytes # (Auto) 1.36 K/uL Monocytes # (Auto) 1.15 K/uL Eosinophils # (Auto) 0.00 K/uL Basophils # (Auto) 0.01 K/uL RDW Standard Deviation 46.8 fL RDW Coefficient of Variation 14.2 % Immature Granulocyte % (Auto) 0.3 % Immature Granulocyte # (Auto) 0.05 K/uL Sodium Level 141 mmol/L Potassium Level 4.5 mmol/L Chloride Level 104 mmol/L Carbon Dioxide Level 31 mmol/L Anion Gap 6.0 mmol/L Blood Urea Nitrogen 21 mg/dl Creatinine 0.93 mg/dl Est Creatinine Clear Calc Drug Dose 83.3 ml/min Estimated GFR () 96.7 Estimated GFR (Non- 83.5 BUN/Creatinine Ratio 22.2 Random Glucose 112 mg/dl Calcium Level 9.0 mg/dl Phosphorus Level 2.1 mg/dl Magnesium Level 2.2 mg/dl Total Bilirubin 0.3 mg/dl Aspartate Amino Transf (AST/SGOT) 37 U/L Alanine Aminotransferase (ALT/SGPT) 32 U/L Alkaline Phosphatase 57 U/L Total Protein 6.4 gm/dl Albumin 3.4 gm/dl Globulin 3.0 gm/dl Albumin/Globulin Ratio 1.1 Chemistry Specimen Hemolysis Assessment and Plan ASSESSMENTS: Acute loss of coordination, possible cerebellar transient ischemic attack/minor cerebrovascular accident. Hypertension. Dyslipidemia. Clinically suspected obstructive sleep apnea. Coronary artery disease status post coronary artery bypass graft. PLAN: MRI/MRA/carotid US unremarkable Tremors improved, likely related to anesthesia vs anxiety Neurology consulted, appreciate recs Drain management per primary team Will sign off at this time
[2016-10-30 15:01] VITALS: BP 162/80; PULSE 86; TEMP 36.7; O2SAT 96
[2016-10-30 16:30] VITALS: O2SAT 96
[2016-10-30] MEDS: DOCUSATE SODIUM/SENNA 50/8.6MG TAB PO SCH (20:45)
[2016-10-30] MEDS: ATORVASTATIN 40 MG TAB PO SCH (20:46)
[2016-10-30 23:00] VITALS: BP 114/66; PULSE 84; TEMP 36.9; O2SAT 94
[2016-10-31] MEDS: TRAMADOL HCL 50 MG TAB PO PRN ×3 (00:05→16:24)
[2016-10-31] MEDS: OXYCODONE HCL IR 5 MG TAB (IMMEDIATE RELEASE) PO PRN ×3 (05:01→22:22)
[2016-10-31] MEDS: POLYETHYLENE (MIRALAX) 17 GM PACK PO SCH ×3 (05:31→18:10)
[2016-10-31 07:32] VITALS: BP 143/79; PULSE 72; TEMP 36.9; O2SAT 92
--- NOTE | 2016-10-31 08:28 | Anesthesiology Progress Note ---
Anesthesia Post Op Note Date & Time Oct 31, 2016 at 08:28 Vital Signs Pain Intensity: 10.0 Vital Signs Past 12 Hours Date Time Temp Pulse Resp B/P (MAP) Pulse Ox O2 Delivery O2 Flow Rate FiO2 10/31/16 07:32 36.9 72 16 143/79 (100) 92 Room Air 10/30/16 23:30 Room Air 10/30/16 23:00 36.9 84 16 114/66 (82) 94 Room Air Notes Mental Status: alert / awake / arousable, participated in evaluation Pt Amnestic to Procedure: Yes Nausea / Vomiting: adequately controlled Pain: adequately controlled Airway Patency, RR, SpO2: stable & adequate BP & HR: stable & adequate Hydration State: stable & adequate Anesthetic Complications: no major complications apparent
[2016-10-31] MEDS: ASPIRIN 81 MG ECTAB PO SCH (08:46)
[2016-10-31] MEDS: PANTOprazole SOD 40 MG TAB PO SCH (08:46)
[2016-10-31] MEDS: TAMSULOSIN HCL 0.4 MG CAP PO SCH (08:46)
[2016-10-31] MEDS: GABAPENTIN 300 MG CAP PO SCH ×3 (08:46→21:49)
[2016-10-31] MEDS: AMLODIPINE BESYLATE 5 MG TAB PO SCH ×2 (08:46→21:49)
--- NOTE | 2016-10-31 08:54 | Neurology Progress Notes ---
Neurology Progress Note Date of Service Oct 31, 2016. Subjective Patient is feeling "stiff all over". With more specific questioning, he is stiff in his low back but does not have neck or arm stiffness and really doesn' t have any joint stiffness in his legs. He has no pain in his legs. The numbness he had prior to surgery, in his left lower extremity, is resolved but he has no numbness. He told the nurse earlier this morning that he was "weak all over". With questioning this morning he feels that he has a hard time getting around because of his back but doesn't have any specific weakness in any one particular limb. He denies dizziness or headache. Objective Date Time Temp Pulse Resp B/P (MAP) Pulse Ox O2 Delivery O2 Flow Rate FiO2 10/31/16 07:32 36.9 72 16 143/79 (100) 92 Room Air 10/30/16 23:30 Room Air 10/30/16 23:00 36.9 84 16 114/66 (82) 94 Room Air 10/30/16 16:30 96 Room Air 10/30/16 15:01 36.7 86 18 162/80 (107) 96 Room Air Exam: He is awake and alert. Speech is unremarkable with no aphasia or dysarthria. Mood and affect seems normal appropriate. Thought processes are intact to conversation. There is no facial droop. Extraocular eye muscles are intact without nystagmus. There is no head tremor or voice tremor. With outstretched arms, there is no drift. There is no resting, postural, or action tremor bilaterally. There is no ataxia with [id number] testing. Strength is symmetrical in the arms being 5/5 proximally and distally. The legs have good strength bilaterally over the left was a little bit weaker in general and the right. Reflexes are 2/4 in the biceps, brachialis, and quadriceps tendons bilaterally. Achilles tendon reflexes are absent bilaterally. Current Inpatient Medications Medications (Trade) Dose Ordered Sig/Omid Route Start Time Stop Time Status Last Admin Dose Admin Promethazine HCl 12.5 mg/Sodium Chloride 50.5 ml @ 202 mls/hr Q6H PRN IV 10/28/16 13:45 11/27/16 13:44 Ondansetron HCl (Zofran Inj) 4 mg Q6H PRN IV 10/28/16 13:45 11/27/16 13:44 10/28/16 21:26 4 MG Lorazepam (Ativan Tab) 0.5 mg Q8H PRN PO 10/28/16 13:45 11/27/16 13:44 10/30/16 14:08 0.5 MG Lorazepam 0.5 mg/ Syringe 1 ml @ 1 mls/min Q8H PRN IV 10/28/16 13:45 11/27/16 13:44 Pneumococcal Polysaccharide Vaccine 1 ea PRN PRN N/A 10/28/16 13:45 11/27/16 13:44 Influenza Virus Vacc Triv Types A&B 1 ea PRN PRN N/A 10/28/16 13:45 11/27/16 13:44 Polyethylene (Miralax Powder Packet) 17 gm Q6 PO 10/30/16 06:00 11/29/16 05:59 10/31/16 05:31 17 GM Bisacodyl (Dulcolax Supp) 10 mg DAILY PRN [place] 10/28/16 13:45 11/27/16 13:44 Magnesium Hydroxide (Milk Of Magnesia Susp) 30 ml DAILY PRN PO 10/28/16 13:45 11/27/16 13:44 Hydromorphone HCl (Dilaudid Inj) 0.5 mg Q3H PRN IV 10/29/16 06:00 11/12/16 05:59 Oxycodone HCl (Roxicodone Immediate Rel Tab) 5-10mg prn moderate to sev... Q4H PRN PO 10/29/16 06:00 11/12/16 05:59 10/31/16 05:01 10 MG Acetaminophen (Tylenol Tab) 1,000 mg Q8H PRN PO 10/28/16 13:45 11/27/16 13:44 Acetaminophen 100 ml @ 400 mls/hr Q8H PRN IV 10/28/16 13:45 11/27/16 13:44 Naloxone HCl (Narcan Inj) 0.1 mg Q5M PRN IV 10/28/16 13:45 11/27/16 13:44 Senna/Docusate Sodium (Senokot S Tab) 2 tab HS PO 10/28/16 21:00 11/27/16 20:59 10/30/16 20:45 2 TAB Sodium Biphosphate/ Sodium Phosphate (Fleet Enema) 132 ml ONE PRN [place] 10/28/16 13:45 11/27/16 13:44 Hydroxyzine HCl (Vistaril Tab) 25 mg Q8H PRN PO 10/28/16 13:45 11/27/16 13:44 Al Hydroxide/Mg Hydroxide (Maalox Susp) 30 ml Q6H PRN PO 10/28/16 13:45 11/27/16 13:44 Famotidine (Pepcid Tab) 20 mg Q12 PRN PO 10/28/16 13:45 11/27/16 13:44 Diphenhydramine HCl (Benadryl Cap) 25 mg Q6H PRN PO 10/28/16 13:45 11/27/16 13:44 Amlodipine Besylate (Norvasc Tab) 5 mg BID PO 10/28/16 21:00 11/27/16 20:59 Future hold 10/30/16 20:46 5 MG Aspirin (Ecotrin Tab) 162 mg QAM PO 10/29/16 09:00 11/28/16 08:59 10/30/16 08:10 162 MG Gabapentin (Neurontin Cap) 300 mg TID PO 10/28/16 21:00 11/27/16 20:59 10/30/16 20:46 300 MG Tamsulosin HCl (Flomax Cap) 0.4 mg QAM PO 10/29/16 09:00 11/28/16 08:59 10/30/16 08:09 0.4 MG Tramadol HCl (Ultram Tab) 50 mg Q4 PRN PO 10/28/16 13:45 11/27/16 13:44 10/31/16 07:25 50 MG Pantoprazole Sodium (Protonix Tab) 40 mg QAM PO 10/29/16 09:00 11/28/16 08:59 10/30/16 08:10 40 MG Hydromorphone HCl (Dilaudid Inj) 1 mg Q3H PRN IV 10/29/16 06:00 11/12/16 05:59 Menthol (Nice Lexy) 1 lexy PRN PRN PO 10/28/16 22:45 11/27/16 22:44 10/28/16 23:58 1 LEXY Atorvastatin Calcium (Lipitor Tab) 40 mg QPM PO 10/30/16 21:00 11/27/16 20:59 10/30/16 20:46 40 MG Impression 1. Post lumbar spine surgery 10-28, for lumbar spinal stenosis with decompression/laminectomy and fusion L2-L5. There was SI joint fusion as well. Overall, he is doing very well with no lower extremity issues postoperatively. He feels somewhat stiff and sore in his lumbar spine but that is to be expected. I see no other neurologic deficits on exam. 2. Essential tremor. The patient does not have any significant essential tremor this morning. He has no signs of parkinsonism either. 3. Encephalopathy Patient has no signs of encephalopathy this morning. There are no obvious mental status defects. The patient had no evidence of a stroke the MRI. He did have some very mild atrophy and small vessel ischemic disease only. Carotid ultrasound and MR angiography was unremarkable as well. Plan 1. I see no need for additional neurologic testing or treatment at this time. 2. Patient needs extensive physical therapy for strengthening/gait training Please contact me if I can be of further assistance on this case. If needed, Dr. Ron can follow this patient as an outpatient.
[2016-10-31] MEDS ORDERED: RXC5 PO (11:33)
--- NOTE | 2016-10-31 11:33 | Discharge Instructions ---
Discharge Instructions Date of Service Oct 31, 2016. Admission Reason for Admission: Spinal Stenosis Discharge Discharge Diagnosis / Problem: lumbar stenosis Discharge Goals Goal(s): Improve function Activity Recommendations Activity Limitations: per Instructions/Follow-up section . Instructions / Follow-Up Instructions / Follow-Up ACTIVITY RECOMMENDATIONS: SELF CARE INSTRUCTIONS AFTER THORACIC/LUMBAR FUSIONS 1. You may walk to your tolerance. It is good exercise for your legs and back. Expect some back and intermittent leg aches and pains. 2. You may perform "counter-top" level activities (make a sandwich, rk with a project, etc.). 3. No bending or lifting of more than 10 pounds or back twisting of any nature (roll like a log when turning in bed). 4. You may ride in a car for 20-30 minutes at a time. No driving until after your first visit with your doctor. 5. Frequent changes of position and restricting sitting to 30 minutes at a time will help limit the amount of back spasms and stiffness you may experience. 6. You may discontinue the use of ambulatory aids (cane, crutches, etc.) once your strength and confidence allow. 7. You may traffic coordinator the shower and let water strike your incision when you arrive home at least once daily. Do not take a tub bath, sit in a hot tub or go into a swimming pool until after your first recheck in the office. SPECIAL CARE INSTRUCTIONS: VERY IMPORTANT TO READ AND REVIEW A. Your surgical incision has been closed with a cosmetic suture under the skin that will dissolve in about 6 weeks. In 14 days, you can use a pair of clean scissors and cut the suture that is left outside of the skin at the ends of your incision. 1. The small skin tapes can be removed 7 days after surgery if they have not fallen off by that point. 2. You may keep the wound open to air as much as possible to promote healing after post-op day number 5 unless told otherwise by your doctor. 3. If you think the wound looks like it is becoming infected (redness or worsening drainage) and/or you are experiencing fever, chill or worsening back pain and muscle spasms, contact the office so that we may evaluate you as soon as possible. B. Complications are uncommon, but please contact us if you have any signs or symptoms of: 1. wound infection (fever higher than 102.5 degrees F, redness, separation of wound, drainage, or increasing pain from the incision) 2. blood clots in legs (pain, swelling, redness and warmth in legs) 3. urinary tract infection (fever higher than 102.5 degrees F, burning upon urination or increased frequency of urination) 4. nerve problems (inability to walk on your toes or heels, numbness, loss of bowel or bladder control) 5. any other symptoms that concern you C. Please call the office at if you have any concerns or questions about your operation or recovery. D. No smoking! Smoking drastically decreases the chance of a solid fusion. E. Do not take any anti-inflammatory medications (Indocin, Advil, Motrin, Aspirin, Naprosyn, etc.) as these may inhibit the chance of a solid fusion. Tylenol is okay to take for pain. MANAGING PAIN AFTER SPINAL SURGERY 1. Narcotic medication is intended for short-term use and will be provided for surgical pain. Surgical pain usually lasts for a period of 4-6 weeks. Narcotic medication includes Percocet, Vicodin, Darvocet, Tylenol #3 or Lortab. 2. Longer-term pain is more appropriately treated with non-narcotic medication such as Tylenol ES. 3. Muscle spasm is not appropriately treated with narcotics. Muscle relaxers such as Soma, Flexeril or Skelaxin can be used along with Tylenol ES. 4. Remember that we all live with some "aches and pains". This is not unusual or uncommon after an injury or as we get older. a. Back pain is expected and may include muscle spasms for 4 to 6 weeks after surgery. The pain should gradually improve. If the pain worsens for no apparent reason, please contact the office. b. Intermittent leg pain may also be experienced and should not be concerned about unless it worsens for no apparent reason. If so, please contact the office. 5. We will provide appropriate medication within the normal guidelines of their prescribed use. We will also be very cautious and aware of potential abuse and extended duration of patients' medication needs. a. Pain medications are for your comfort and to assist with sleep and rest so that the tissue can heal. They are not provided in order to return to normal activity and should not be used through the day. To do so or worsening pain at night can result from ongoing tissue damage and development of tolerance to the prescribed medicine. 6. Please allow 2-3 days to process refills. Prescriptions will not be mailed but must be picked up at the office. FOLLOW UP VISIT: Keep your scheduled follow-up appointment. Any questions, please call the office at . Current Hospital Diet Patient's current hospital diet: Regular Diet Discharge Diet Recommended Diet: Regular Diet Procedures Procedures Performed: Lumbar decompression medial facetectomies foraminotomies L2 3 L3 4 L4 5 L5-S1. #2 posterior spinal fusion L2 to S1. #3 bilateral SI joint fusion. #4 placement of posterior segmental instrumentation with bilateral iliac bolts L2 to S1. #5 interbody fusion L4 5. #6 placement peek cage 12 x 26 mm at L4 5. #7 placement of locally harvested morcellized autograft in the posterior lateral gutters and bilateral SI joints. #8 placement infuse collagen sponge by mask graft and posterior gutters Rocio bone graft in the interbody space. Pending Studies Studies pending at discharge: no Laboratory Results Hemoglobin A1c Test 09/15/16 08:40 Range/Units Estimated Average Glucose 120 mg/dl Hemoglobin A1c 5.8 H 4.5-5.6 % Lipid Panel Test 09/15/16 08:40 Range/Units Triglycerides Level 56 0-150 mg/dl Cholesterol Level 184 0-200 mg/dl HDL Cholesterol 76 mg/dl Cholesterol/HDL Ratio 2.4 LDL Cholesterol, Calculated 97 mg/dl Medical Emergencies . Who to Call and When: Medical Emergencies: If at any time you feel your situation is an emergency, please call 911 immediately. . Non-Emergent Contact Non-Emergency issues call your: Primary Care Provider . "Provider Documentation" section prepared by Markel Cortez. . VTE Core Measure Inpt VTE Proph given/why not?: Dulce Goddard, SCD's
[2016-10-31] MEDS ORDERED: SOD PHOSPHATE/SOD BIPHOSPHATE ENEMA 132 ML BTL PR STA (12:26)
[2016-10-31 15:20] VITALS: BP 117/69; PULSE 85; TEMP 37.3; O2SAT 92
--- NOTE | 2016-10-31 15:41 | ECHOCARDIOGRAM REPORT ---
*NOTICE TO RECEIVING DEMOCRAT AGENCY This information is strictly Confidential and protected under [place] law. [place] law prohibits you from making any further disclosure of this information unless further disclosure is expressly permitted by the written consent of the person to whom it pertains or is authorized by law. A general authorization for the release of medical or other information is not sufficient for this purpose. Hospital accepts no responsibility if the information is made available to any other person, INCLUDING THE PATIENT. Interpretation Summary * Name: CRIS DRUMMOND Study Date: 10/31/2016 06:41 AM BP: 143/79 mmHg * Patient Location: .3E\S\E310\S\1 HR: 68 * : 1945 (M/d/yyyy) Gender: Male Height: 65 in * Age: 71 yrs Ethnicity: [place] Weight: 229 lb * Ordering Physician: Erin Palomino * Referring Physician: Markel Cortez D.O. * Performed By: Noel Webb RCS * * Reason For Study: CVA/ TIA * BSA: 2.1 m2 * Normal biventricular systolic function. * Mild concentric left ventricular hypertrophy. * Mild left atrial dilatation. * Mild aortic root dilatation. * No significant valvular abnormalities. * No cardiac source of emboli noted. Procedure Details * Left Ventricle The left ventricle is normal in size. There is no thrombus. There is mild concentric left ventricular hypertrophy. Ejection Fraction = 60-65%. The left ventricular wall motion is normal. * Right Ventricle The right ventricle is normal in size and function. * Atria The left atrium is mildly dilated. Right atrial size is normal. Injection of contrast documented no interatrial shunt. * Mitral Valve The mitral valve is normal. There is no mitral valve stenosis. There is no mitral regurgitation noted. * Tricuspid Valve The tricuspid valve is not well visualized. Right ventricular systolic pressure is normal. There is trace tricuspid regurgitation. * Aortic Valve The aortic valve is not well visualized. The aortic valve is trileaflet. The valve appear's to open normally. Aortic stenosis is absent. No aortic regurgitation is present. * Pulmonic Valve The pulmonic valve is not well seen, but is grossly normal. There is no pulmonic valvular stenosis. There is no pulmonic valvular regurgitation. * Great Vessels Mild aortic root dilatation. * Pericardium/Pleural There is no pericardial effusion. * Great Vessels Normal inferior vena cava diameter and respiratory variation suggests normal central venous pressure. * * MMode 2D Measurements and Calculations * IVSd 1.2 cm * * LVIDd 4.5 cm * LVIDs 2.6 cm * LVPWd 1.3 cm * * IVS/LVPW 0.95 * FS 41.9 % * EDV(Teich) 94.8 ml * ESV(Teich) 25.6 ml * EF(Teich) 73.0 % * * EDV(cubed) 94.2 ml * ESV(cubed) 18.4 ml * EF(cubed) 80.4 % * * LV mass(C)d 206.7 grams * LV mass(C)dI 98.6 grams/m\S\2 * * SV(Teich) 69.3 ml * SI(Teich) 33.1 ml/m\S\2 * SV(cubed) 75.7 ml * SI(cubed) 36.1 ml/m\S\2 * * Ao root diam 4.1 cm * Ao root area 13.5 cm\S\2 * LA dimension 4.6 cm * * LA/Ao 1.1 * LVOT diam 1.9 cm * LVOT area 2.8 cm\S\2 * * EDV(MOD-sp4) 87.9 ml * ESV(MOD-sp4) 16.0 ml * EF(MOD-sp4) 81.8 % * * EDV(MOD-sp2) 78.2 ml * ESV(MOD-sp2) 24.4 ml * EF(MOD-sp2) 68.9 % * * SV(MOD-sp4) 71.8 ml * SI(MOD-sp4) 34.3 ml/m\S\2 * * SV(MOD-sp2) 53.9 ml * SI(MOD-sp2) 25.7 ml/m\S\2 * * * Doppler Measurements and Calculations * MV E max kiran 80.7 cm/sec * MV A max kiran 54.3 cm/sec * * MV E/A 1.5 * * MV dec time 0.13 sec * * Ao V2 max 154.2 cm/sec * Ao max PG 9.5 mmHg * Ao max PG (full) 4.8 mmHg * HIREN(V,A) 2.0 cm\S\2 * HIREN(V,D) 2.0 cm\S\2 * * LV V1 max PG 4.7 mmHg * * LV V1 max 108.4 cm/sec * * TR max kiran 186.0 cm/sec * * *
--- NOTE | 2016-10-31 15:46 | Progress Note ---
Progress Note Date of Service Oct 31, 2016. Progress Note Pain controlled. Leg pain improving. Is becoming more functional daily. Vital signs stable ROSY drain decreasing appropriately on exam he is interior bedside as good strength testing. Assessment status post multilevel lumbar depression fusion replant this time both myself as well as neurology believability be an excellent candidate for a rehabilitation facility. Surgically [facility] have him transferred to [facility] tomorrow.
[2016-10-31] MEDS: DOCUSATE SODIUM/SENNA 50/8.6MG TAB PO SCH (21:00)
[2016-10-31 21:47] VITALS: BP 145/76; PULSE 85
[2016-10-31] MEDS: ATORVASTATIN 40 MG TAB PO SCH (21:48)
[2016-10-31 23:02] VITALS: BP 106/64; PULSE 80; TEMP 37.4; O2SAT 92
[2016-10-31] MEDS ORDERED: NURSING VERBAL MED ORDER ONE (23:15)
[2016-11-01] VITALS (9 sets, daily range): BP systolic 115–166; BP diastolic 72–94; PULSE 77–91; TEMP 36.8–39.3; O2SAT 89–96
[2016-11-01] MEDS: TRAMADOL HCL 50 MG TAB PO PRN ×3 (01:29→11:13)
[2016-11-01] MEDS: OXYCODONE HCL IR 5 MG TAB (IMMEDIATE RELEASE) PO PRN ×3 (04:17→15:04)
[2016-11-01] MEDS: PANTOprazole SOD 40 MG TAB PO SCH (08:53)
[2016-11-01] MEDS: GABAPENTIN 300 MG CAP PO SCH ×2 (08:53→13:38)
[2016-11-01] MEDS: ASPIRIN 81 MG ECTAB PO SCH (08:54)
[2016-11-01] MEDS: AMLODIPINE BESYLATE 5 MG TAB PO SCH (08:54)
[2016-11-01] MEDS: TAMSULOSIN HCL 0.4 MG CAP PO SCH (08:58)
--- NOTE | 2016-11-01 12:33 | Discharge Summary ---
Orthopedic Discharge Summary Admission Date/Reason Oct 28, 2016 at 09:30 Spinal Stenosis. Discharge Date/Disposition Nov 01, 2016 Rehab Diagnosis Principal Diagnosis: Lumbar spinal stenosis Admission Physical Exam As per Admitting History & Physical. Hospital Course Patient underwent multilevel lumbar decompression fusion tolerated this well was taken to the orthopedic floor postoperatively. Postoperatively he progressed appropriately ROSY drain decreased nicely. Subsequently discharged to rehabilitation. Discharge Instructions Please refer to the electronic Patient Visit Report (Discharge Instructions) for additional information.
[2016-11-13] MEDS ORDERED: NRN300 PO (08:53)
[2016-11-13] MEDS ORDERED: OMEG10007 PO (09:12)
[2016-11-13] MEDS ORDERED: MULT-506 PO (09:12)
[2016-11-13] MEDS ORDERED: TAMS0.4C38 PO (10:02)
[2016-11-13] MEDS ORDERED: TRAM-10 PO (10:36)
[2016-11-13] MEDS ORDERED: ACET-1487 PO (10:36)
[2016-11-13] MEDS ORDERED: CARV6.252 PO (10:46)
[2016-11-13] MEDS ORDERED: LISI40TA PO (10:46)
[2016-11-13] MEDS ORDERED: ASPI81TA21 PO (10:46)
[2016-11-13] MEDS ORDERED: ATOR-24 PO (10:46)
[2016-11-13] MEDS ORDERED: OMEP20TA PO (10:49)
[2016-11-13] MEDS ORDERED: HYDR25TA4 PO (10:49)
[2016-11-13] MEDS ORDERED: AMLO-110 PO (10:49)
[2016-11-30] MEDS ORDERED: WARF5TAB7 PO (09:30)
[2017-01-02] MEDS ORDERED: WARF2.5T8 PO (11:46)
[2017-01-02] MEDS ORDERED: FRS/40 PO (11:46)
== END 2016-11-01 19:15 | DRG 459 ==
LOC: C.ACU 07:29 → C.3E 09:30 → ENRESERV 15:16 → C.MSN 10-30 18:58
PROVIDERS: ADMIT Orthopaedic Surgery Orthopaedic Surgery of the Spine; ATTEND Orthopaedic Surgery Orthopaedic Surgery of the Spine
PROC: 0SG3071 Fusion of Lumbosacral Joint with Autologous Tissue Substitute, Posterior Approach, Posterior Column, Open Approach (ICD-10-PCS; principal; 2016-10-28 09:45)
PROC: 0ST20ZZ Resection of Lumbar Vertebral Disc, Open Approach (ICD-10-PCS; principal; 2016-10-28 09:45)
PROC: 0SG707Z Fusion of Right Sacroiliac Joint with Autologous Tissue Substitute, Open Approach (ICD-10-PCS; principal; 2016-10-28 09:45)
PROC: 0SG704Z Fusion of Right Sacroiliac Joint with Internal Fixation Device, Open Approach (ICD-10-PCS; principal; 2016-10-28 09:45)
PROC: 0SG00AJ Fusion of Lumbar Vertebral Joint with Interbody Fusion Device, Posterior Approach, Anterior Column, Open Approach (ICD-10-PCS; principal; 2016-10-28 09:45)
PROC: 0SG1071 Fusion of 2 or more Lumbar Vertebral Joints with Autologous Tissue Substitute, Posterior Approach, Posterior Column, Open Approach (ICD-10-PCS; principal; 2016-10-28 09:45)
PROC: 3E0U0GB Introduction of Recombinant Bone Morphogenetic Protein into Joints, Open Approach (ICD-10-PCS; principal; 2016-10-28 09:45)
PROC: 0SG807Z Fusion of Left Sacroiliac Joint with Autologous Tissue Substitute, Open Approach (ICD-10-PCS; principal; 2016-10-28 09:45)
PROC: 0SG804Z Fusion of Left Sacroiliac Joint with Internal Fixation Device, Open Approach (ICD-10-PCS; principal; 2016-10-28 09:45)
DX: M48.06 Spinal stenosis, lumbar region (principal); G93.40 Encephalopathy, unspecified; I67.89 Other cerebrovascular disease; R27.8 Other lack of coordination; G25.0 Essential tremor; I25.10 Atherosclerotic heart disease of native coronary artery without angina pectoris; I10 Essential (primary) hypertension; E78.5 Hyperlipidemia, unspecified; I87.2 Venous insufficiency (chronic) (peripheral); G62.9 Polyneuropathy, unspecified; K21.9 Gastro-esophageal reflux disease without esophagitis; N40.0 Benign prostatic hyperplasia without lower urinary tract symptoms; M19.90 Unspecified osteoarthritis, unspecified site; I73.00 Raynaud's syndrome without gangrene; G47.33 Obstructive sleep apnea (adult) (pediatric); E66.9 Obesity, unspecified; Z68.38 Body mass index [BMI] 38.0-38.9, adult; I25.2 Old myocardial infarction; Z95.1 Presence of aortocoronary bypass graft; Z79.1 Long term (current) use of non-steroidal anti-inflammatories (NSAID); Z79.82 Long term (current) use of aspirin; Z79.891 Long term (current) use of opiate analgesic; Z79.899 Other long term (current) drug therapy

== ENCOUNTER 2016-11-13 16:30 | Emergency (ER) | payer BC, OTHER ==
[~2016-11-13] VITALS: Ht 165.1 cm; Wt 101.0 kg
[~2016-11-13 16:30] MED LIST changes: +ACET-1487 PO; +AMLO-110 PO; +ASPI81TA21 PO; +ATOR-24 PO; +CARV6.252 PO; -CEFAZOLIN 2000 MG/60 ML D5W IV SCH; +HYDR25TA4 PO; -LACTATED RINGER'S 1000ML 1,000 ML IV SCH; +LISI40TA PO; -MELO7.5T5 PO; +MULT-506 PO; +NRN300 PO; +OMEG10007 PO; +OMEP20TA PO; +RXC5 PO; +TAMS0.4C38 PO; +TRAM-10 PO
[2016-11-13 16:33] VITALS: TEMP 36.9; Ht 165.1 cm; Wt 101.0 kg
[2016-11-13] MEDS ORDERED: CYCL10TA6 PO (17:08)
[2016-11-13] MEDS ORDERED: OXYC-609 PO (17:08)
[2016-11-13] MEDS ORDERED: TRAM1TAB96 PO (17:08)
[2016-11-13 17:33] LABS: BASO % 0.4 %; BASO ABS # 0.03 K/uL (0-0.2); COMPLETE YES; EOS % 3.5 %; HEMATOCRIT 31.7 % (42-52); IG% 0.3 %; LYMPH % 23.3 %; LYMPH ABS # 1.59 K/uL (1.2-3.4); MEAN CELL VOLUME 88.8 fL (80-100); MEAN CORPUSCULAR HEMOGLOBIN 28.6 pg (25-34); MEAN CORPUSCULAR HGB CONC 32.2 g/dl (32-36); MEAN PLATELET VOLUME 8.8 fL (7.4-10.4); MONO % 7.9 %; NEUT % 64.6 %; PLATELET COUNT 413 K/uL (130-400); RED BLOOD COUNT 3.57 M/uL (4.7-6.1); WHITE BLOOD COUNT 6.82 K/uL (4.8-10.8)
[2016-11-13 17:40] LABS: PROTHROMBIN TIME (PATIENT) 11.1 SECONDS (9.0-12.0)
[2016-11-13 17:49] LABS: BLOOD UREA NITROGEN 20 mg/dl (7-18); BUN/CREATININE RATIO 18.3 (10-20); CALCIUM 8.9 mg/dl (8.5-10.1); CARBON DIOXIDE 31 mmol/L (21-32); CHLORIDE 104 mmol/L (98-107); GLUCOSE 108 mg/dl (70-99); SODIUM 141 mmol/L (136-145)
--- NOTE | 2016-11-13 18:23 | DIAGNOSTIC IMAGING REPORT ---
BILATERAL LOWER EXTREMITY VENOUS DOPPLER CLINICAL HISTORY: Status post back surgery. Right foot swelling. COMPARISON STUDY: Bilateral lower extremity venous Doppler August 02, 2012. TECHNIQUE: Sonography of the deep venous system of the bilateral lower extremities was performed. Compression and augmentation were evaluated. FINDINGS: The bilateral common femoral, superficial femoral and popliteal veins are patent. There is no thrombus within these vessels. Note is made of age indeterminate thrombus within the right peroneal veins. No additional sites of deep venous thrombus are identified within either lower extremity. Note is made of a small amount of superficial thrombus located posterior to the left knee. This extends for approximately 3 cm and is approximately 5 cm from the popliteal vein. IMPRESSION: 1. Deep venous thrombus within paired right peroneal veins. No additional sites of deep venous thrombus. 2. Small amount of superficial thrombus within a vein posterior to the left knee. Electronically signed by: Jr Sethi M.D. 11/13/2016 6:22 PM Dictated Date/Time: 11/13/2016 6:17 PM
--- NOTE | 2016-11-13 18:36 | DIAGNOSTIC IMAGING REPORT ---
RIGHT FOOT MIN 3 VIEWS ROUTINE CLINICAL HISTORY: Right foot pain and swelling. COMPARISON: None FINDINGS: Tarsometatarsal joints are intact. Evaluation of the toes is difficult due to chronic deformities. However, no acute fracture is identified. There is a bipartite lateral sesamoid of the right great toe. 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 Soft tissue swelling is present. IMPRESSION: 1. No acute fracture or dislocation of the right foot. 2. Evaluation of the toes is difficult due to chronic deformity but no acute abnormality identified. 3. Soft tissue swelling of the right foot. Electronically signed by: Jr Sethi M.D. 11/13/2016 6:34 PM Dictated Date/Time: 11/13/2016 6:32 PM
[2016-11-13] MEDS ORDERED: WARFARIN SOD 5 MG TAB PO ONE (19:00)
[2016-11-13] MEDS ORDERED: WARF5TAB90 PO (19:07)
[2016-11-13] MEDS ORDERED: ENOX100I SQ (19:07)
[2016-11-13] MEDS ORDERED: LOVENOX TEACHING KIT PRN (19:15)
[2016-11-13] MEDS ORDERED: ENOXAPARIN 150 MG/1ML SYR SQ ONE (19:45)
--- NOTE | 2016-11-13 20:12 | EMERGENCY ROOM VISIT NOTE ---
History Report prepared by Sp: Brittany Osborne Under the Supervision of: Dr. Alejandro Tripp D.O. First contact with patient: 16:36 Chief Complaint: SWELLING TO EXTREMITY Stated Complaint: S/P BACK SURGERY- RT FOOT SWOLLEN History of Present Illness The patient is a 71 year old male who presents to the Emergency Room with complaints of persistent right foot pain starting yesterday. The patient had L4 to S1 spinal fusion 2 weeks ago. He was discharged from rehab 2 days ago. Since then he has developed bilateral leg swelling. Since yesterday he has had right foot pain. He currently rates his discomfort as an 8/10 in severity. The pain worsens with weight bearing. He denies any calf pain, SOB, nausea, vomiting, diarrhea, dysuria, or chest pain. He has not had any discharge from the surgical wounds. He has been on 2 baby aspirin since discharge and no blood thinners. He is concerned for blood clots as his sister has had multiple DVTs. He is on Lasix. He denies any missed medications. Patient denies any previous brain trauma, brain bleeds, recent surgery other than spinal, hemoptysis, hematemesis, blood in stool or any other recent trauma. Source of History: patient, spouse/significant other Onset: yesterday Position: foot (right) Symptom Intensity: 8/10 Quality: other (pain) Timing: other (persistent) Modifying Factors (Worsening): other (weight bearing) Associated Symptoms: No chest pain, No SOB, No nausea, No vomiting, No diarrhea, No urinary symptoms Note: Pt has bilateral leg swelling. Pt denies calf pain. Review of Systems See HPI for pertinent positives & negatives. A total of 10 systems reviewed and were otherwise negative. Past Medical & Surgical Medical Problems: (1) Acute urinary tract infection (2) Lumbar stenosis with neurogenic claudication Family History DVT FH: heart disease Hypertension Social History Smoking Status: Never Smoker Alcohol Use: none Drug Use: none Marital Status: Housing Status: lives with family Occupation Status: employed Current/Historical Medications Scheduled Amlodipine (Norvasc), 5 MG PO BID Aspirin Enteric Coated (Ecotrin Or Generic), 162 MG PO QAM Atorvastatin (Lipitor), 40 MG PO QPM Carvedilol (Coreg), 6.25 MG PO BID Enoxaparin (Lovenox), 150 MG SQ DAILY Fish Oil (Brady-3), 1 CAP PO DAILY Gabapentin (Gabapentin), 300 MG PO TID Hydrochlorothiazide (Hctz), 25 MG PO QAM Lisinopril (Zestril), 40 MG PO QAM Multivitamin (Multivitamin), 1 TAB PO QAM Omeprazole (Omeprazole), 20 MG PO QAM Tamsulosin Hcl (Flomax), 0.4 MG PO QAM Warfarin Sodium (Coumadin), 5 MG PO DAILY Scheduled PRN Acetaminophen (Tylenol Arthritis Ext Rel), 650-1,300 MG PO Q8 PRN for Pain Cyclobenzaprine Hcl (Flexeril), 10 MG PO TID PRN for Muscle Spasm Oxycodone HCl (Oxycodone HCl), 5-10 MG PO Q4H PRN for Moderate-Severe Pain Tramadol (Ultram), 50-100 MG PO Q4H PRN for Pain Tramadol Hcl (Tramadol Hcl Er), 200 MG PO QPM PRN for Pain Allergies Coded Allergies: No Known Allergies (Unverified , 10/28/16) Physical Exam Vital Signs Date Time Temp Pulse Resp B/P (MAP) Pulse Ox O2 Delivery O2 Flow Rate FiO2 11/13/16 18:55 67 21 113/54 93 Room Air 11/13/16 16:33 36.9 72 16 98/59 94 Room Air Physical Exam GENERAL: sitting up in bed, disheveled, in minimal distress, non-toxic EYE EXAM: normal conjunctiva OROPHARYNX: no exudate, no erythema, lips, buccal mucosa, and tongue normal and mucous membranes are moist NECK: supple, no nuchal rigidity, no adenopathy, non-tender LUNGS: Clear to auscultation. Normal chest wall mechanics HEART: no murmurs, S1 normal and S2 normal ABDOMEN: abdomen soft, non-tender, normo-active bowel sounds, no masses, no rebound or guarding. BACK: Recent midline incision clean dry and intact, no drainage, no erythema, several steri strips in place. SKIN: no rashes and no bruising UPPER EXTREMITIES: upper extremities are grossly normal. LOWER EXTREMITIES: Pitting edema tracking up to bilateral knees, left greater than right, DP 2/4, flexion/extension of hip knee ankles and EHL are equal bilateral 4/5 bilaterally. (Baseline per patient) NEURO EXAM: Normal sensorium. Medical Decision & Procedures ER Provider Diagnostic Interpretation: Xray results as stated below per my and the radiologist's interpretation. Radiology results as stated below per my review and the radiologist's interpretation: RIGHT FOOT MIN 3 VIEWS ROUTINE CLINICAL HISTORY: Right foot pain and swelling. COMPARISON: None FINDINGS: Tarsometatarsal joints are intact. Evaluation of the toes is difficult due to chronic deformities. However, no acute fracture is identified. There is a bipartite lateral sesamoid of the right great toe. 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 Soft tissue swelling is present. IMPRESSION: 1. No acute fracture or dislocation of the right foot. 2. Evaluation of the toes is difficult due to chronic deformity but no acute abnormality identified. 3. Soft tissue swelling of the right foot. Electronically signed by: Jr Sethi M.D. 11/13/2016 6:34 PM Dictated Date/Time: 11/13/2016 6:32 PM BILATERAL LOWER EXTREMITY VENOUS DOPPLER CLINICAL HISTORY: Status post back surgery. Right foot swelling. COMPARISON STUDY: Bilateral lower extremity venous Doppler August 02, 2012. TECHNIQUE: Sonography of the deep venous system of the bilateral lower extremities was performed. Compression and augmentation were evaluated. FINDINGS: The bilateral common femoral, superficial femoral and popliteal veins are patent. There is no thrombus within these vessels. Note is made of age indeterminate thrombus within the right peroneal veins. No additional sites of deep venous thrombus are identified within either lower extremity. Note is made of a small amount of superficial thrombus located posterior to the left knee. This extends for approximately 3 cm and is approximately 5 cm from the popliteal vein. IMPRESSION: 1. Deep venous thrombus within paired right peroneal veins. No additional sites of deep venous thrombus. 2. Small amount of superficial thrombus within a vein posterior to the left knee. Electronically signed by: Jr Sethi M.D. 11/13/2016 6:22 PM Dictated Date/Time: 11/13/2016 6:17 PM Laboratory Results 11/13/16 17:20 Red Blood Count 3.57, Mean Corpuscular Volume 88.8, Mean Corpuscular Hemoglobin 28.6, Mean Corpuscular Hemoglobin Concent 32.2, Mean Platelet Volume 8.8, Neutrophils (%) (Auto) 64.6, Lymphocytes (%) (Auto) 23.3, Monocytes (%) (Auto) 7.9, Eosinophils (%) (Auto) 3.5, Basophils (%) (Auto) 0.4, Neutrophils # (Auto) 4.40, Lymphocytes # (Auto) 1.59, Monocytes # (Auto) 0.54, Eosinophils # (Auto) 0.24, Basophils # (Auto) 0.03 11/13/16 17:20 Test 11/13/16 17:20 White Blood Count 6.82 K/uL (4.8-10.8) Red Blood Count 3.57 M/uL (4.7-6.1) Hemoglobin 10.2 g/dL (14.0-18.0) Hematocrit 31.7 % (42-52) Mean Corpuscular Volume 88.8 fL (80-100) Mean Corpuscular Hemoglobin 28.6 pg (25-34) Mean Corpuscular Hemoglobin Concent 32.2 g/dl (32-36) Platelet Count 413 K/uL (130-400) Mean Platelet Volume 8.8 fL (7.4-10.4) Neutrophils (%) (Auto) 64.6 % Lymphocytes (%) (Auto) 23.3 % Monocytes (%) (Auto) 7.9 % Eosinophils (%) (Auto) 3.5 % Basophils (%) (Auto) 0.4 % Neutrophils # (Auto) 4.40 K/uL (1.4-6.5) Lymphocytes # (Auto) 1.59 K/uL (1.2-3.4) Monocytes # (Auto) 0.54 K/uL (0.11-0.59) Eosinophils # (Auto) 0.24 K/uL (0-0.5) Basophils # (Auto) 0.03 K/uL (0-0.2) RDW Standard Deviation 45.4 fL (36.4-46.3) RDW Coefficient of Variation 13.8 % (11.5-14.5) Immature Granulocyte % (Auto) 0.3 % Immature Granulocyte # (Auto) 0.02 K/uL (0.00-0.02) Prothrombin Time 11.1 SECONDS (9.0-12.0) Prothromb Time International Ratio 1.0 (0.9-1.1) Anion Gap 6.0 mmol/L (3-11) Estimated GFR () 79.0 Estimated GFR (Non- 68.1 BUN/Creatinine Ratio 18.3 (10-20) Calcium Level 8.9 mg/dl (8.5-10.1) Laboratory results per my review. Medications Administered Medications (Trade) Dose Ordered Sig/Omid Route Start Time Stop Time Status Last Admin Dose Admin Warfarin Sodium (Coumadin Tab) 10 mg NOW ONCE PO 11/13/16 19:00 11/13/16 19:01 DC 11/13/16 19:56 10 MG Miscellaneous (Lovenox Teaching Kit) 1 ea PRN PRN N/A 11/13/16 19:15 12/13/16 19:14 11/13/16 19:55 1 EA Enoxaparin Sodium (Lovenox Inj) 150 mg ONE ONCE SQ 11/13/16 19:45 11/13/16 19:46 DC 11/13/16 19:55 150 MG ED Course ED COURSE: Vital signs were reviewed and showed hypotension. The patients medical record was reviewed The above diagnostic studies were performed and reviewed. ED treatments and interventions as stated above. 1637: The patient was evaluated by the student at this time. We discussed findings, differentials, and treatment plan. 1700: The patient was evaluated in room B7. A complete history and physical examination was performed. 1835: I discussed the patient's case with Dr. Cortez, [facility] - orthopedic surgery. He recommends anticoagulation as an outpatient. He does not think the patient requires admission for a heparin drip. 1839: I had a long discussion with the patient and his and they prefer Coumadin and Lovenox at this time. He denies any previous brain bleeds, recent trauma or surgery besides the back surgery, hematuria, hemoptysis, hematemesis, hematochezia, or melena. 1853: I discussed the patients case with Dr. Barclay, [facility]. She recommends 150 mg of Lovenox and 10 mg of Coumadin for 2 days followed by decrease to 5 mg. 1900: Coumadin Tab 10 mg PO, Lovenox Teaching Kit 1 ea, Lovenox 1.5 mg/kg SQ. 1910: Upon reevaluation, the patient is resting comfortably. I discussed my findings with the patient and his and they understand and agree with the treatment plan. He has an appointment with his PCP in 3 days. Based on the patient's age, coexisting illnesses, exam and lab findings the decision to treat as an outpatient was made. The patient remained stable while under my care. The patient appeared well at the time of discharge. Medical Decision Differential diagnosis: Etiologies such as DVT, musculoskeletal, infection, joint effusion, trauma, lymphedema, idiopathic, CHF, as well as others were entertained. Patient is a 71-year-old male who was admitted at the end of October for spinal stenosis and had surgery by Dr. Cortez. He presents today for swelling in his lower extremities. He denies any chest pain or shortness of breath. He has left rehabilitation is currently at home. CBC shows a hemoglobin of 10. Renal function and INR was normal. Duplex of lower extremity shows DVTs in the right with superficial thrombophlebitis of the left. He is taking aspirin. X-ray of the right foot was unremarkable. Patient notes he is currently neurologically at his baseline in his lower extremities. Discussed with Dr. Cortez and he notes that from a surgical standpoint it is okay to start anticoagulation and the patient does not need to stay in the hospital for monitoring. Discussed with Dr. Triana for Coumadin dosing. She agrees with Lovenox 150 mg daily and Coumadin 10 mg for 2 days followed by 5 mg. Patient has PCP follow-up on Monday. He was given instructions on Lovenox ingesting. Patient has follow- up with ortho on Monday. Answers all of the patient's and 's questions. Patient preferred to be on Lovenox and Coumadin since it was easily reversible. Explained the risk of falling and patient and with understood. Patient will use walker at home. Made referral to Coumadin clinic. Care management will call PCPs office tomorrow to inform them of the findings and the need to have follow-up. Discussed with Pt concerning signs and symptoms to watch out for. Pt was instructed to follow up with their PCP and discussed with the patient their option to return to the ED at anytime for persistent or worsening symptoms. The appropriate anticipatory guidance and out-patient management, including indications for return to the emergency department, were explained at length to the patient and understood. Medication Reconcilliation Current Medication List: was personally reviewed by me Blood Pressure Screening Patient's blood pressure: Low blood pressure Blood pressure disposition: Did not require urgent referral Consults Time Called: 1824 [facility] Returned Call: [phone] I discussed the patient's case with him. He recommends anticoagulation as an outpatient. He does not think the patient requires admission for a heparin drip. Additional Consults: Time Called: 1848 Consulted Physician: Dr. Barclay, [facility] Returned Call: 1852 Additional Comments: I discussed the patient's case with Dr. Barclay, [facility]. She recommends 150 mg of Lovenox and 10 mg of Coumadin for 2 days followed by decrease to 5 mg. Impression Primary Impression: DVT (deep venous thrombosis) Additional Impression: Swelling of lower extremity Scribe Attestation The scribe's documentation has been prepared under my direction and personally reviewed by me in its entirety. I confirm that the note above accurately reflects all work, treatment, procedures, and medical decision making performed by me. Departure Information Dispostion Home / Self-Care Prescriptions Warfarin Sodium (COUMADIN) 5 Mg Tab 5 MG PO DAILY for 10 Days, #10 TAB Prov: Alejandro Tripp, DO 11/13/16 Enoxaparin (LOVENOX) 100 Mg/Ml Inj 150 MG SQ DAILY for 5 Days Prov: Alejandro Tripp, DO 11/13/16 Referrals Lesley Montague MD Forms HOME CARE DOCUMENTATION FORM, IMPORTANT VISIT INFORMATION, WORK / SCHOOL INSTRUCTIONS Patient Instructions DVT Dc, Enoxaparin injection, My [facility], Surgery Prevent DVT After , Warfarin tablets Additional Instructions Please follow up with your primary care doctor within the next 3 days. Please discuss your ultrasound findings which showed DVTs in your right lower extremity and a superficial thrombophlebitis in your left lower extremity. If you start to have any chest pain, shortness of breath, weakness or numbness in arms or legs, bleeding from incision site, fevers above 100.4, numbness in your groin, unable to urinate or move your bowels or any other concerning signs or symptoms from your standpoint; return immediately to the ER. Please take 10 mg of Coumadin tomorrow night. Each night after that he will take 5 mg of Coumadin until you see your primary care doctor for additional dosing instructions. Please give your Lovenox daily until prescription runs out or otherwise instructed by your primary care doctor. You will need to have your INR which is your Coumadin level checked Monday or by your primary care doctor. If you notice any blood in your urine, stool, coughing up blood or have any trauma to your head or any other part anybody he should be evaluated in the ER as you are now taking a blood thinner which makes you bleed much easier. Please discuss with your primary care doctor but he will need to be anticoagulated/on blood thinners for at least 3 months. Problem Qualifiers Primary Impression: DVT (deep venous thrombosis) DVT location: lower extremity Affected thrombotic vein of extremity: unspecified vein of extremity Chronicity: acute Laterality: right Qualified Codes: I82.401 - Acute embolism and thrombosis of unspecified deep veins of right lower extremity
[2016-11-13 20:21] VITALS: BP 142/85; PULSE 94; O2SAT 95
[2016-11-14] MEDS ORDERED: ENOXAPARIN 1.5 MG/KG SQ SCH (09:00)
[2016-11-30] MEDS ORDERED: WARF5TAB7 PO (09:30)
[2017-01-02] MEDS ORDERED: WARF2.5T8 PO (11:46)
[2017-01-02] MEDS ORDERED: FRS/40 PO (11:46)
== END 2016-11-13 20:24 | disposition home or self-care (01) ==
LOC: C.EDB 16:31
DX: I82.493 Acute embolism and thrombosis of other specified deep vein of lower extremity, bilateral (principal); M79.89 Other specified soft tissue disorders; M99.73 Connective tissue and disc stenosis of intervertebral foramina of lumbar region; Z82.49 Family history of ischemic heart disease and other diseases of the circulatory system; Z79.82 Long term (current) use of aspirin; Z79.01 Long term (current) use of anticoagulants

== ENCOUNTER → 2016-11-16 | Outpatient (CLI) | payer BC ==
[~2016-11-16] MED LIST changes: +CYCL10TA6 PO; +ENOX100I SQ; +FRS/40 PO; +OXYC-609 PO; -RXC5 PO; -TRAM100T PO; +TRAM1TAB96 PO; +WARF2.5T8 PO; +WARF5TAB7 PO; +WARF5TAB90 PO
[2016-11-16 16:56] LABS: INR 2.4 (0.9-1.1); PROTHROMBIN TIME (PATIENT) 26.9 SECONDS (9.0-12.0)
== END | disposition home or self-care (01) ==
LOC: C.LABBC 13:27
PROVIDERS: ATTEND Family Medicine
DX: I82.409 Acute embolism and thrombosis of unspecified deep veins of unspecified lower extremity (principal)

== ENCOUNTER → 2016-11-18 | Outpatient (CLI) | payer BC ==
[2016-11-18 13:25] LABS: INR 2.6 (0.9-1.1); PROTHROMBIN TIME (PATIENT) 28.8 SECONDS (9.0-12.0)
== END | disposition home or self-care (01) ==
LOC: C.LABBC 09:29
PROVIDERS: ATTEND Family Medicine
DX: I82.409 Acute embolism and thrombosis of unspecified deep veins of unspecified lower extremity (principal)

== ENCOUNTER → 2016-11-21 | Outpatient (CLI) | payer BC ==
[2016-11-21 14:11] LABS: INR 2.7 (0.9-1.1); PROTHROMBIN TIME (PATIENT) 29.6 SECONDS (9.0-12.0)
== END | disposition home or self-care (01) ==
LOC: C.LABBC 09:22
PROVIDERS: ATTEND Nurse Practitioner Family
DX: I82.409 Acute embolism and thrombosis of unspecified deep veins of unspecified lower extremity (principal)

== ENCOUNTER → 2017-01-10 | Outpatient (CLI) | payer BC ==
[~2017-01-10] MED LIST changes: -ASPI81TA21 PO; -ENOX100I SQ; -OXYC-609 PO; -TRAM1TAB96 PO; -WARF5TAB90 PO
[2017-01-10 11:11] LABS: BLOOD UREA NITROGEN 17 mg/dl (7-18); BUN/CREATININE RATIO 17.2 (10-20); CALCIUM 9.3 mg/dl (8.5-10.1); CARBON DIOXIDE 30 mmol/L (21-32); CHLORIDE 108 mmol/L (98-107); CREATININE 0.98 mg/dl (0.60-1.40); GLUCOSE 95 mg/dl (70-99); POTASSIUM 4.3 mmol/L (3.5-5.1); SODIUM 143 mmol/L (136-145)
[2017-01-10 11:15] LABS: ALT/SGPT 24 U/L (12-78); CHOLESTEROL 140 mg/dl (0-200); CHOLESTEROL/HDL RATIO 2.6; ESTIMATED AVERAGE GLUCOSE 114 mg/dl; HA1C FLAG Normal (Normal); HDL CHOLESTEROL 54 mg/dl; LDL CHOLESTEROL CALCULATED 65 mg/dl; TRIGLYCERIDES 105 mg/dl (0-150); VERY LOW DENSITY LIPOPROT CALC 21 mg/dl
== END | disposition home or self-care (01) ==
LOC: C.LABBC 08:51
PROVIDERS: ATTEND Internal Medicine Interventional Cardiology
DX: R73.01 Impaired fasting glucose (principal); E78.00 Pure hypercholesterolemia, unspecified

== ENCOUNTER 2017-01-26 08:35 | Day surgery (SDC) | payer BC ==
[2017-01-26] VITALS (21 sets, daily range): BP systolic 121–167; BP diastolic 68–92; PULSE 62–74; TEMP 36.7–36.9; O2SAT 93–99; Ht 165.1 cm; Wt 103.5 kg
[~2017-01-26] VITALS: Ht 165.1 cm; Wt 103.5 kg
[~2017-01-26 08:35] MED LIST changes: +SODIUM CHLORIDE 0.9% 1000ML 1,000 ML IV SCH
[2017-01-26] MEDS ORDERED: FRS/40 PO (09:28)
--- NOTE | 2017-01-26 09:53 | Procedure Note ---
Pre-Mod Sedation Assessment General Date of Moderate Sedation: Jan 26, 2017. Review Cardiovascular: regular rate, rhythm, no edema Abdomen: normal bowel sounds, non tender Lungs: chest non-tender, lungs clear Airway Class: III Pre-Sedation Airway Assessment Oral Cavity: WNL Able to Visualize Vocal Cords: No Short Thick Neck: No Hx of Sleep Apnea: No Smoking Status: Never Smoker Mallampati Classification: Class III ASA Classification: Class III Procedure Planning Contraindications-for Mod Sed: Contraindicated No Notes The planned sedation has been discussed with the patient and consent obtained. I have identified the patient, determined the appropriateness of sedation and have assessed the patient immediately prior to the procedure. All medicine(s) and interventions are by my order.
[2017-01-26] MEDS ORDERED: LIDOCAINE/EPINEPHRINE 1% INJ 50 ML VIAL ONE (11:05)
[2017-01-26] MEDS ORDERED: LIDOCAINE HCL 1% 20 ML VIAL ONE (11:05)
[2017-01-26] MEDS ORDERED: SODIUM BICARB 8.4% INJ 50 MEQ/50 ML SYR IV ONE (11:05)
[2017-01-26] MEDS ORDERED: FENTANYL CITRATE INJ 50 MCG/1 ML 2 ML VIAL ONE (12:16)
[2017-01-26] MEDS ORDERED: FENTANYL CITRATE INJ 50 MCG/1 ML 2 ML VIAL IV ONE ×2 (12:18→12:56)
[2017-01-26] MEDS ORDERED: MIDAZOLAM HCL 1 MG/ML 2ML VIAL ONE (12:25)
[2017-01-26] MEDS ORDERED: MIDAZOLAM HCL 1 MG/ML 2ML VIAL IV ONE (12:26)
[2017-01-26] MEDS ORDERED: LIDOCAINE HCL 1% 20 ML VIAL INJ ONE ×2 (12:28→12:42)
--- NOTE | 2017-01-26 13:48 | Procedure Note ---
Post-Mod Sedation Assessment General Date of Moderate Sedation Jan 26, 2017. Vital Signs: Vital Signs Past 12 Hours Date Time Temp Pulse Resp B/P (MAP) Pulse Ox O2 Delivery O2 Flow Rate FiO2 01/26/17 12:10 69 20 145/72 94 Room Air 01/26/17 12:05 67 18 138/82 94 Room Air 01/26/17 11:17 36.7 62 18 152/80 99 Room Air 01/26/17 09:32 36.7 62 18 152/80 (104) 99 Room Air Review - Discharge Criteria Vital Signs Stable: Yes Alert/Oriented/Conversant: Yes Returned to Baseline Mental St: Yes Nausea Absent/Minimal: Yes Pain/Discomfort/Absent/Minimal: Yes Normal/Baseline Respirations: Yes Active Bleeding?: No Pt Received D/C Instructions: Yes Prescriptions Given: None Specific Proced. D/C Criteria Distal Pulses Present (Cardiac: Yes Groin site assessed-Card Cath: N/A Voided Prior To Discharge: N/A Discharged Patients Adult Escort/Transportation: Yes
--- NOTE | 2017-01-26 13:54 | [facility] Operative Report ---
Operative Report Operative Date Jan 26, 2017. Pre-Operative Diagnosis Chronic venous insufficiency Post-Operative Diagnosis Chronic venous insufficiency Procedure(s) Performed Attempted Left SSV RFA Surgeon [place] [employer] Manager Surgeon(s) Pepe Estimated Blood Loss 5 Findings Dilated SSV with varicosities Drains None Anesthesia Moderate Complication(s) None Disposition Recovery Room / PACU Indications CEAP class 3 disease Description of Procedure Left SSV dilated proximally with varicosities. Tapers abruptly after varicosities and very small distally. Multiple attempts at accessing SSV distal to varicosities but unable to pass wire up to more proximal vessel. Vessel was accessed under ultrasound proximally and sheath placed. Catheter placed into vessel but there was only a short segment before vessel dove into deep system. Catheter inserted as far as possible but distal aspect of RFA coil still near surface of the skin and decision made to abort procedure. No apparent complications post attempted procedure. Follow-up in office in 2 weeks. I attest to the content of the Intraoperative Record and any orders documented therein. Any exceptions are noted below.
--- NOTE | 2017-01-26 13:56 | Discharge Instructions ---
Discharge Instructions Procedure Procedure Date: Jan 26, 2017. Reason for Visit: Chronic Venous Insufficiency. Discharge Discharge Date: Jan 26, 2017. Discharge Diagnosis: Chronic venous insufficiency Last Recorded Wt (Kilograms): 103.5 Anesthesia Post Anesthesia Instructions: If you have had General Anesthesia or IV Sedation: * Do not drive today. * Resume driving when surgeon permits. * Do not make important decisions or sign legal documents today. * Call surgeon for: 1. Temperature elevations greater than 101 degrees F. 2. Uncontrollable pain. 3. Excessive bleeding. 4. Persistent nausea and vomiting. 5. Medication intolerance (nausea, vomiting or rash). * For nausea and vomiting use only clear liquids such as: tea, soda, bouillon until nausea subsides, then gradually increase diet as tolerated. * If you have any concerns or questions, call your surgeon's office. If physician is unavailable and it is an emergency, call 911 or go to the nearest emergency room. Instructions Activity Recommendations: resume regular activity Recommended Home Diet: resume previous diet Allergies: Coded Allergies: No Known Allergies (Unverified , 01/26/17) Follow Up Additional Instructions: Resume normal activities today. Continue frequent walking Follow-up with: As scheduled with Dr. Bender. Ultrasound to be canceled. [facility] Recommendations: Call your doctor if: * Temperature above 101 degrees * Pain not relieved by pain medicine ordered * There is increased drainage or redness from any incision * You have any unanswered questions or concerns. Your Doctors Instructions noted above were prepared by provider Tom Bender. Patient Signature Section: Patient Instructions Signature Page Kush Randle Patient (or Guardian) Signature/Date: I have read and understand the instructions given to me by my caregivers. Caregiver/RN/Doctor Signature/Date: The above-named patient and/or guardian has received patient instructions on this date. + Original Patient Signature Page (only) stays with chart. Please make copy for patient.
== END 2017-01-26 14:10 | disposition home or self-care (01) ==
LOC: C.ACU 08:35
PROVIDERS: ATTEND Internal Medicine Interventional Cardiology
DX: I87.2 Venous insufficiency (chronic) (peripheral) (principal); I83.90 Asymptomatic varicose veins of unspecified lower extremity; I10 Essential (primary) hypertension; E78.5 Hyperlipidemia, unspecified; K21.9 Gastro-esophageal reflux disease without esophagitis; N40.0 Benign prostatic hyperplasia without lower urinary tract symptoms; I82.409 Acute embolism and thrombosis of unspecified deep veins of unspecified lower extremity; I25.2 Old myocardial infarction; E66.9 Obesity, unspecified; Z95.1 Presence of aortocoronary bypass graft; Z85.820 Personal history of malignant melanoma of skin; Z98.890 Other specified postprocedural states; Z79.899 Other long term (current) drug therapy; Z79.01 Long term (current) use of anticoagulants; Z82.49 Family history of ischemic heart disease and other diseases of the circulatory system; Z84.89 Family history of other specified conditions

== ENCOUNTER → 2017-02-16 | Outpatient (CLI) | payer BC ==
[~2017-02-16] MED LIST changes: -HYDR25TA4 PO; -SODIUM CHLORIDE 0.9% 1000ML 1,000 ML IV SCH; -WARF2.5T8 PO; -WARF5TAB7 PO
[2017-02-16 17:47] LABS: BLOOD UREA NITROGEN 25 mg/dl (7-18); BUN/CREATININE RATIO 23.7 (10-20); CALCIUM 9.6 mg/dl (8.5-10.1); CARBON DIOXIDE 29 mmol/L (21-32); CHLORIDE 103 mmol/L (98-107); CREATININE 1.06 mg/dl (0.60-1.40); GLUCOSE 86 mg/dl (70-99); POTASSIUM 3.9 mmol/L (3.5-5.1); SODIUM 140 mmol/L (136-145)
== END | disposition home or self-care (01) ==
LOC: C.LABBC 13:11
PROVIDERS: ATTEND Internal Medicine Interventional Cardiology
DX: I25.10 Atherosclerotic heart disease of native coronary artery without angina pectoris (principal); I87.2 Venous insufficiency (chronic) (peripheral)

== ENCOUNTER → 2017-07-10 | Outpatient (CLI) | payer BC ==
[2017-07-10 17:18] LABS: ALT/SGPT 27 U/L (12-78); BLOOD UREA NITROGEN 38 mg/dl (7-18); CALCIUM 9.4 mg/dl (8.5-10.1); CARBON DIOXIDE 29 mmol/L (21-32); CHOLESTEROL 163 mg/dl (0-200); CREATININE 1.37 mg/dl (0.60-1.40); GLUCOSE 88 mg/dl (70-99); POTASSIUM 3.6 mmol/L (3.5-5.1); SODIUM 137 mmol/L (136-145)
[2017-07-10 17:20] LABS: LDL CHOLESTEROL CALCULATED 76 mg/dl
[2017-07-11 06:25] LABS: HEMOGLOBIN A1C 5.9 % (4.5-5.6)
== END | disposition home or self-care (01) ==
LOC: C.LABBC 13:42
PROVIDERS: ATTEND Family Medicine
DX: R73.01 Impaired fasting glucose (principal); E78.00 Pure hypercholesterolemia, unspecified

== ENCOUNTER → 2017-08-22 | Outpatient (CLI) | payer BC ==
[~2017-08-22] MED LIST changes: +GADAVIST IV PRN
--- NOTE | 2017-08-22 13:40 | DIAGNOSTIC IMAGING REPORT ---
MRI OF THE BRAIN WITHOUT AND WITH IV CONTRAST CLINICAL HISTORY: Neurologic gait dysfunction. Cognitive changes. COMPARISON STUDY: MRI of the brain October 29, 2016. TECHNIQUE: Utilizing a 1.5 Ludivina magnet and dedicated coil, multiplanar, multiecho imaging of the brain was performed pre and postcontrast administration. IV administration of 10.5 mL of Gadavist contrast was uneventful. FINDINGS: There are no foci of restricted diffusion. No acute intracranial hemorrhage, midline shift or mass effect is present. Ventricular system is unremarkable. Basilar cisterns are patent. There are no extra-axial collections. Flow-voids for the major intracranial vessels are present. There is no intracranial mass or pathologic enhancement. Scattered white matter T2 hyperintense foci are similar to previous exam. There is mild atrophy. Calvarial signal is maintained. Orbits and sinuses are unremarkable. IMPRESSION: 1. No acute intracranial findings. 2. No change in scattered white matter T2 hyperintense foci which suggest mild small vessel disease. 3. Mild atrophy. Electronically signed by: Jr Sethi M.D. 08/22/2017 1:38 PM Dictated Date/Time: 08/22/2017 1:34 PM
== END | disposition home or self-care (01) ==
LOC: C.MRIBC 12:34
PROVIDERS: ATTEND Psychiatry & Neurology Neurology
DX: R26.9 Unspecified abnormalities of gait and mobility (principal); R41.89 Other symptoms and signs involving cognitive functions and awareness

== ENCOUNTER → 2017-11-22 | Outpatient (CLI) | payer BC ==
[~2017-11-22] MED LIST changes: -AMLO-110 PO; +AMLO5TAB3 PO; -GADAVIST IV PRN
[2017-11-22 16:50] LABS: HEMATOCRIT 39.5 % (42-52); HEMOGLOBIN 13.1 g/dL (14.0-18.0); MEAN CELL VOLUME 85.7 fL (80-100); MEAN CORPUSCULAR HEMOGLOBIN 28.4 pg (25-34); MEAN CORPUSCULAR HGB CONC 33.2 g/dl (32-36); MEAN PLATELET VOLUME 10.2 fL (7.4-10.4); PLATELET COUNT 230 K/uL (130-400); RED CELL DISTRIBUTION WIDTH SD 43.4 fL (36.4-46.3); WHITE BLOOD COUNT 6.63 K/uL (4.8-10.8)
[2017-11-22 17:04] LABS: ALT/SGPT 20 U/L (12-78); AST/SGOT 19 U/L (15-37); BLOOD UREA NITROGEN 19 mg/dl (7-18); CARBON DIOXIDE 30 mmol/L (21-32); GLUCOSE 103 mg/dl (70-99); POTASSIUM 3.3 mmol/L (3.5-5.1); SODIUM 141 mmol/L (136-145)
== END | disposition home or self-care (01) ==
LOC: C.LABBC 15:10
PROVIDERS: ATTEND Physician Assistant
DX: I25.10 Atherosclerotic heart disease of native coronary artery without angina pectoris (principal)

== ENCOUNTER 2020-07-18 01:35 | Inpatient (IN) ==
[2020-07-18] MEDS ORDERED: fentaNYL citrate 100 MCG/2 ML VIAL ONE (02:53)
[2020-07-18] MEDS ORDERED: ONDANSETRON INJ 2 MG/ML 2 ML VIAL ONE (02:53)
[2020-07-18] MEDS ORDERED: OPTIRAY 350 500ml IV ONE (03:03)
[2020-07-18 03:08] LABS: Basophils # (auto) 0.01 K/uL (0-0.2); Basophils % (auto) 0.1 %; Eosinophils # (auto) 0.05 K/uL (0-0.5); Eosinophils % (auto) 0.5 %; Hematocrit (blood only) 42.2 % (42-52); Hemoglobin 14.3 g/dL (14.0-18.0); Immature Granulocytes # (auto) 0.02 K/uL (0.00-0.02); Immature Granulocytes % (auto) 0.2 %; Lymphocytes # (auto) 1.04 K/uL (1.2-3.4); Mean Corpuscular Hemoglobin 29.5 pg (25-34); Mean Corpuscular Hgb Conc 33.9 g/dL (32-36); Mean Platelet Volume 10.1 fL (7.4-10.4); Monocytes # (auto) 0.31 K/uL (0.11-0.59); Neutrophils # (auto) 8.96 K/uL (1.4-6.5); Neutrophils % (auto) 86.2 %; Platelet Count 216 K/uL (130-400); RDW Coefficient of Variation 14.6 % (11.5-14.5); RDW Standard Deviation 46.5 fL (36.4-46.3); Red Blood Count 4.85 M/uL (4.7-6.1); White Blood Count 10.39 K/uL (4.8-10.8)
[2020-07-18 03:24] LABS: Alanine Aminotransferase 11 U/L (12-78); Albumin Level 4.3 gm/dl (3.4-5.0); Aspartate Aminotransferase 9 U/L (15-37); BUN Creatinine Ratio 19.6 (10-20); Blood Urea Nitrogen 22 mg/dl (7-18); Calcium 9.3 mg/dl (8.5-10.1); Carbon Dioxide 29 mmol/L (21-32); Chloride 107 mmol/L (98-107); Creatinine Clr Calc Pharmacy 69.3 ml/min; Est GFR (African American) 73.5; Est GFR (Non-African American) 63.4; Glucose 166 mg/dl (70-99); Lipase 51 U/L (73-393); Sodium 143 mmol/L (136-145)
[2020-07-18] MEDS ORDERED: SODIUM CHLORIDE 0.9% 500 ML IV ONE (03:28)
[2020-07-18 03:30] LABS: Albumin Globulin Ratio 1.1 (0.9-2); Alkaline Phosphatase 118 U/L (45-117); Bilirubin,Total 0.6 mg/dl (0.2-1); Globulin 3.8 gm/dl (2.5-4.0); Total Protein 8.1 gm/dl (6.4-8.2); Troponin I < 0.015 ng/ml (0-0.045)
[2020-07-18] MEDS ORDERED: fentaNYL citrate 100 MCG/2 ML VIAL IV STA (03:50)
[2020-07-18] MEDS ORDERED: HYDROmorphone INJ 0.5 MG/0.5 ML SYR IV STA (05:33)
[2020-07-18] MEDS: SODIUM CHLORIDE 0.9% 500 ML IV SCH ×5 (05:51→16:56)
--- NOTE | 2020-07-18 07:56 | Emergency Department Note ---
Impression & Plan Epigastric abdominal pain ED Provider Note NAME: CRIS DRUMMOND AGE: 75 SEX: M ARRIVES VIA: Walk-In INFORMANT: Patient, his ED PROVIDER(S): Silva Bo DO CHIEF COMPLAINT: Epigastric PLAN: Disposition: Admitted to the [facility] hospitalist service-Dr. Ovalle Condition: Fair MEDICAL DECISION MAKING: This is a 75-year-old male patient who presents to the emergency department with severe epigastric abdominal pain. Patient felt fine throughout the day today but pain started around 7 PM. On presentation, the patient was nauseated and the pain became more more severe. He got slight relief from IV fentanyl. He went for an aortic dissection study which was negative. There were gallstones noted on the CT so he went for right upper quadrant ultrasound. This showed sludge and they recommended a HIDA scan. The patient had no ischemic changes on EKG and troponin was negative. The patient required multiple doses of IV fentanyl. We then switched to Dilaudid which did give him some relief. The patient will be admitted to the [facility] hospitalist service for HIDA scan and further work-up. Triage Nursing notes reviewed and agree them. Additional history obtained from patient's who was at the bedside Prior medical records reviewed Vital Signs: reviewed and remarkable for hypertension Differential diagnosis: Pancreatitis; aortic dissection; perforated viscus; bowel obstruction; ischemic gut; cholecystitis ER treatment provided: IV normal saline; IV fentanyl; IV Zofran; IV Dilaudid Diagnostics interpreted by me: ECG: Normal sinus rhythm at a rate of 76 with a right bundle branch block no ST segment elevation or signs of ischemia. The right bundle branch is new in comparison to an old EKG from July 2012. There are no ischemic changes noted on today's EKG and there is no ectopy. Cardiac Monitoring: Normal sinus rhythm at 92 Laboratory studies: See below Imaging studies: As per stat rad CTA chest: Study quality degraded by patient respiratory motion artifact. No thoracic aortic aneurysm or dissection. No evidence for acute intramural hematoma. No definitive CT evidence for pulmonary embolism. However the bilateral segmental and subsegmental branches are not adequately evaluated due to significant artifact. Mild cardiomegaly. Mild bilateral groundglass opacities which may be atelectasis or mild interstitial edema. No pathologic intrathoracic lymphadenopathy. No acute osseous abnormality. CT abdomen and pelvis with contrast: No abdominal aortic aneurysm or dissection. Diffuse aortic atherosclerosis. Patent celiac, superior mesenteric and inferior mesenteric arteries. Patent bilateral main and accessory renal arteries. Patent bilateral common iliac, internal iliac, external iliac and common femoral arteries. Left hepatic cyst. Fatty replacement of the pancreas. Distended gallbladder with cholelithiasis. Consider correlation with ultrasound. No biliary dilatation. No bowel obstruction. Unremarkable appendix. Colonic diverticulosis. No CT evidence for diverticulitis. Fat-containing bilateral inguinal periumbilical hernia. L2-S1 posterior spinal fusion and laminectomies. Ultrasound right upper quadrant distended gallbladder with sludge but no gallstones identified. Gallbladder wall measures 3 mm in thickness. No pericholecystic fluid. Positive sonographic Mas sign elicited. Consider correlation with HIDA scan. No biliary dilatation. Common bile duct 5 mm in diameter. Fatty liver. Pancreas not seen. Unremarkable right kidney. No renal calculus or hydronephrosis. HPI: 75/M arrives for evaluation of epigastric abdominal pain. The patient developed nausea and epigastric abdominal pain around 7 PM this evening. He has never had pain like this before. The pain was initially intermittent then began again to feel more constant and severe. The patient could not get comfortable. The patient does not typically have any type of GI upset and can normally eat anything. He did not feel this was related to what he ate. ROS: See above HPI for pertinent positives & negatives. A total of 10 systems reviewed and were otherwise negative. PAST MEDICAL HISTORY:See Below PAST SURGICAL HISTORY:See Below FAMILY HISTORY:See Below SOCIAL HISTORY:See Below HOME MEDICATIONS:See list ALLERGIES:None VITALS:See Below PHYSICAL EXAMINATION: HEENT: Head - normocephalic and atraumatic. Pupils are equal, round, and reactive to light. Extraocular eye muscles are intact, and sclera are anic teric. Nose - moist nasal mucosa without discharge. Mouth - moist buccal mucosa. Oropharynx is nonerythematous and there is no tonsillar exudate or edema noted. Neck: Supple; no JVD or cervical lymphadenopathy Heart: Regular rate and rhythm. There is a normal S1 and S2 with no murmurs, clicks, or gallops appreciated. Lungs: Clear to auscultation bilaterally with no wheezes, rales, or rhonchi. Abdomen: Soft, with exquisite tenderness to palpation in the epigastrium and just above the umbilicus. There are no palpable pulsatile masses or hepatosplenomegaly. There is no guarding, rigidity, or rebound noted. Extremities: No evidence of cyanosis, clubbing, or edema. There are easily palpable peripheral pulses. Skin: Pale, diaphoretic and warm ED COURSE: Times/Reassessments: 0245: The patient was evaluated in room B 10. A complete h istory and physical was performed. A twelve-lead EKG was obtained. An order was placed for continuous cardiac monitoring. The patient was in a normal sinus rhythm at a rate of 92. Laboratory studies were drawn as above. The patient was given IV fentanyl for his pain the patient will go emergently for CT scan of the abdomen/pelvis and chest to rule out aortic dissection. The meds did seem to help with the pain but they are wearing off. He will be given a subsequent dose. 0425: The patient states the pain is coming back. I reviewed results of the labs and and radiographs with the patient and his . He will not go for ultrasound to rule out acute cholecystitis. We will switch to IV Dilaudid because it is longer acting for pain management. The patient will be started on IV normal saline 0610: I reviewed the results of the ultrasound with the patient and his and we will discuss case with the [facility] Hospitalist as they will evaluate for inpatient care and consult surgery. Silva Bo DO Past Med/Surg History Medical History Acute cholecystitis Arthritis Balance problem Bilateral edema of lower extremity BPH (benign prostatic hyperplasia) Chronic venous insufficiency Coronary artery disease Essential hypertension High cholesterol History of OR (myocardial infarction) Hypercholesterolemia Hypertension Impaired fasting glucose Lumbar stenosis with neurogenic claudication Male erectile disorder of organic origin Mitral regurgitation Never a smoker Obesity Osteoarthritis of left knee Parkinson disease Parkinson's disease Raynaud's disease Seborrheic dermatitis Varicose veins of both lower extremities Surgical History H/O colonoscopy S/P CABG x 3 [place] teeth removed Family History Father Colitis Mother Myocardial infarction Coronary arteriosclerosis Sister Thrombophlebitis Denies family history of Ovarian cancer Prostate cancer Breast cancer Colorectal cancer Social History Smoking Status: Never smoker Second Hand Exposure: No; Hx Alcohol Use: No Hx Substance Use: No Preferred Language: Croatian Communication Ability: Effective Visual Impairment: No Limitations Hearing Ability: Normal Logistics And Planning Manager Required: No Beliefs That Will Affect Care: None marital status: Current Living Situation: Spouse current occupational status: retired Other Information That Helps Us Care for You: No Feels Safe at Home: Yes Safety Concerns: Feels Safe At This Time Childhood Exposure to Second-Hand Smoke: No Dental Care, Regularly: Yes Physical Activity Frequency: Does not Exercise Seatbelt Use: always Sunscreen Use: Yes Assistive Devices: Cane and Walker Assistive Devices Comment: cane with patient Allergies Allergies Allergy/AdvReac Type Severity Reaction Status Date / Time No Known Drug Allergies Allergy Unknown Verified 07/18/20 03:04 Home Meds Home Medications Medication Instructions Recorded Confirmed multivitamin 1 tab PO DAILY 11/05/18 07/18/20 aspirin 81 mg chewable tablet 81 mg PO DAILY #30 tab 12/23/18 07/18/20 Previous Rx's Medication Instructions Recorded naproxen 500 mg PO Q12H PRN #14 tab 05/03/19 carbidopa 25 mg-levodopa 100 mg 2 tab PO QID 30 Days #240 tab 02/04/20 tablet losartan 100 mg tablet 100 mg PO DAILY #90 tab 02/05/20 ropinirole 1 mg tablet 1 mg PO TID #90 tab 03/03/20 atorvastatin 40 mg tablet 40 mg PO DAILY #90 tab 04/06/20 carvedilol 6.25 mg tablet 6.25 mg PO BID #180 tab 04/06/20 cetirizine 10 mg tablet 10 mg PO DAILY #90 tab 04/06/20 omeprazole 40 mg capsule,delayed 40 mg PO DAILY #90 cap 04/06/20 release tamsulosin 0.4 mg capsule 0.4 mg PO DAILY #90 cap 04/06/20 amlodipine 5 mg tablet 5 mg PO BID #180 tab 05/06/20 cimetidine 800 mg tablet 800 mg PO .COMPLEX #30 tab 05/06/20 potassium chloride 10 mEq 20 meq PO DAILY #180 tab 05/06/20 tablet,extended release fluticasone propionate 50 2 spray INTNAS DAILY #16 g 06/03/20 mcg/actuation nasal spray,suspension carbidopa ER 50 mg-levodopa 200 mg 1 tab PO .QD #30 tab 06/24/20 tablet,extended release gabapentin 300 mg capsule 300 mg PO BID #90 cap 07/07/20 tramadol 50 mg tablet 50 mg PO TID PRN #90 tab 07/07/20 furosemide 40 mg tablet 40 mg PO PRN #90 tab 07/08/20 Results & Data (ED) Vital Signs Vital Signs - 24 hr 07/18/20 01:42 07/18/20 02:56 07/18/20 03:27 Temperature 36.6 C Temperature Source Temporal Artery Scan Pulse Rate 64 76 Pulse Rate [Bilateral Radial] 83 77 Pulse Rate from SpO2 Sensor Pulse Rhythm Regular Pulse Rhythm [Bilateral Radial] Regular Regular Pulse Strength [Bilateral Radial] Normal Normal Respiratory Rate 20 18 18 Respiratory Effort / Characteristics Non-Labored Non-Labored Respiratory Depth Normal Normal Normal Respiratory Pattern Regular Regular Blood Pressure 190/94 H Blood Pressure [Right Radial Artery] 152/78 H 187/86 H Blood Pressure Mean 126 Blood Pressure Mean [Right Radial Artery] 102 119 Blood Pressure Position Sitting Blood Pressure Position [Right Radial Artery] Sitting Sitting Pulse Oximetry 95 96 99 Oxygen Delivery Method Room Air Nasal Cannula Nasal Cannula Oxygen Flow Rate 4 4 Sepsis Recent Fever Within 48 Hours No Sepsis New/Unexplained Change in Mental Status No Sepsis Action Taken by Nursing No Action Required 07/18/20 07:00 07/18/20 07:30 07/18/20 07:57 Temperature Temperature Source Pulse Rate 97 H 108 H Pulse Rate [Bilateral Radial] 96 H Pulse Rate from SpO2 Sensor 97 H 97 H Pulse Rhythm Pulse Rhythm [Bilateral Radial] Pulse Strength [Bilateral Radial] Respiratory Rate 22 24 Respiratory Effort / Characteristics Non-Labored Spontaneous Respiratory Depth Respiratory Pattern Blood Pressure 179/95 H Blood Pressure [Right Radial Artery] 169/99 H Blood Pressure Mean 123 Blood Pressure Mean [Right Radial Artery] 122 Blood Pressure Position Blood Pressure Position [Right Radial Artery] Pulse Oximetry 96 94 96 Oxygen Delivery Method Room Air Nasal Cannula Nasal Cannula Oxygen Flow Rate 2 2 2 Sepsis Recent Fever Within 48 Hours Sepsis New/Unexplained Change in Mental Status Sepsis Action Taken by Nursing 07/18/20 08:31 07/18/20 09:01 Temperature Temperature Source Pulse Rate 107 H 93 H Pulse Rate [Bilateral Radial] Pulse Rate from SpO2 Sensor 109 H 93 H Pulse Rhythm Pulse Rhythm [Bilateral Radial] Pulse Strength [Bilateral Radial] Respiratory Rate Respiratory Effort / Characteristics Respiratory Depth Respiratory Pattern Blood Pressure 188/97 H 175/98 H Blood Pressure [Right Radial Artery] Blood Pressure Mean 127 123 Blood Pressure Mean [Right Radial Artery] Blood Pressure Position Blood Pressure Position [Right Radial Artery] Pulse Oximetry 91 91 Oxygen Delivery Method Nasal Cannula Nasal Cannula Oxygen Flow Rate 2 2 Sepsis Recent Fever Within 48 Hours Sepsis New/Unexplained Change in Mental Status Sepsis Action Taken by Nursing Laboratory Data Result diagrams: 07/18/20 02:38 07/18/20 02:38 Lab Results 07/18/20 07/18/20 07/18/20 Range/Units 02:38 02:38 04:09 WBC 10.39 (4.8-10.8) K/uL RBC 4.85 (4.7-6.1) M/uL Hgb 14.3 (14.0-18.0) g/dL Hct 42.2 (42-52) % MCV 87.0 (80-100) fL MCH 29.5 (25-34) pg MCHC 33.9 (32-36) g/dL RDW Std Deviation 46.5 H (36.4-46.3) fL RDW Coeff of Porsha 14.6 H (11.5-14.5) % Plt Count 216 (130-400) K/uL MPV 10.1 (7.4-10.4) fL Immature Gran % (Auto) 0.2 % Neut % (Auto) 86.2 % Lymph % (Auto) 10.0 % [place] % (Auto) 3.0 % Eos % (Auto) 0.5 % Baso % (Auto) 0.1 % Neut # (Auto) 8.96 H (1.4-6.5) K/uL Lymph # (Auto) 1.04 L (1.2-3.4) K/uL [place] # (Auto) 0.31 (0.11-0.59) K/uL Eos # (Auto) 0.05 (0-0.5) K/uL Baso # (Auto) 0.01 (0-0.2) K/uL Immature Gran # (Auto) 0.02 (0.00-0.02) K/uL Sodium 143 (136-145) mmol/L Potassium 4.0 (3.5-5.1) mmol/L Chloride 107 (98-107) mmol/L Carbon Dioxide 29 (21-32) mmol/L Anion Gap 7.0 (3-11) BUN 22 H (7-18) mg/dl Creatinine 1.14 (0.6-1.4) mg/dl Est Cr Clr Drug Dosing 69.3 ml/min Est GFR ( Amer) 73.5 Est GFR (Non-Af Amer) 63.4 BUN/Creatinine Ratio 19.6 (10-20) Glucose 166 H (70-99) mg/dl Lactate 0.8 (0.4-2.0) mmol/L Calcium 9.3 (8.5-10.1) mg/dl Total Bilirubin 0.6 (0.2-1) mg/dl AST 9 L (15-37) U/L ALT 11 L (12-78) U/L Alkaline Phosphatase 118 H (45-117) U/L Troponin I < 0.015 (0-0.045) ng/ml Total Protein 8.1 (6.4-8.2) gm/dl Albumin 4.3 (3.4-5.0) gm/dl Globulin 3.8 (2.5-4.0) gm/dl Albumin/Globulin Ratio 1.1 (0.9-2) Lipase 51 L (73-393) U/L COVID-19 Eval Order SARS-CoV-2 (PCR) (Negative) Influenza Type A (PCR) (Neg) Influenza Type B (PCR) (Neg) RSV (RT-PCR) (Neg) 07/18/20 07/18/20 Range/Units 07:00 07:00 WBC (4.8-10.8) K/uL RBC (4.7-6.1) M/uL Hgb (14.0-18.0) g/dL Hct (42-52) % MCV (80-100) fL MCH (25-34) pg MCHC (32-36) g/dL RDW Std Deviation (36.4-46.3) fL RDW Coeff of Porsha (11.5-14.5) % Plt Count (130-400) K/uL MPV (7.4-10.4) fL Immature Gran % (Auto) % Neut % (Auto) % Lymph % (Auto) % [place] % (Auto) % Eos % (Auto) % Baso % (Auto) % Neut # (Auto) (1.4-6.5) K/uL Lymph # (Auto) (1.2-3.4) K/uL [place] # (Auto) (0.11-0.59) K/uL Eos # (Auto) (0-0.5) K/uL Baso # (Auto) (0-0.2) K/uL Immature Gran # (Auto) (0.00-0.02) K/uL Sodium (136-145) mmol/L Potassium (3.5-5.1) mmol/L Chloride (98-107) mmol/L Carbon Dioxide (21-32) mmol/L Anion Gap (3-11) BUN (7-18) mg/dl Creatinine (0.6-1.4) mg/dl Est Cr Clr Drug Dosing ml/min Est GFR ( Amer) Est GFR (Non-Af Amer) BUN/Creatinine Ratio (10-20) Glucose (70-99) mg/dl Lactate (0.4-2.0) mmol/L Calcium (8.5-10.1) mg/dl Total Bilirubin (0.2-1) mg/dl AST (15-37) U/L ALT (12-78) U/L Alkaline Phosphatase (45-117) U/L Troponin I (0-0.045) ng/ml Total Protein (6.4-8.2) gm/dl Albumin (3.4-5.0) gm/dl Globulin (2.5-4.0) gm/dl Albumin/Globulin Ratio (0.9-2) Lipase (73-393) U/L COVID-19 Eval Order [facility]FluRsv at [facility] SARS-CoV-2 (PCR) NEGATIVE (Negative) Influenza Type A (PCR) Negative (Neg) Influenza Type B (PCR) Negative (Neg) RSV (RT-PCR) Negative (Neg) Administered Medications Amlodipine Besylate (Amlodipine Besylate 5 Mg Tab) 5 mg PO BID [facility] Stop: 08/17/20 10:05 Last Admin: 07/18/20 10:53 Dose: 5 mg Documented by: [id number] Carbidopa/Levodopa (Carbidopa/Levodopa 25/100mg Tab) 2 tab PO QID ANDREA Stop: 08/17/20 10:05 Last Admin: 07/18/20 15:53 Dose: 2 tab Documented by: [id number] Admin: 07/18/20 12:46 Dose: 2 tab Documented by: [id number] Admin: 07/18/20 10:54 Dose: 2 tab Documented by: [id number] Carbidopa/Levodopa (Carbidopa/Levodopa 50/200mg Ext Rel Tab) 1 tab PO DAILY [facility] Stop: 08/17/20 10:05 Last Admin: 07/18/20 10:53 Dose: 1 tab Documented by: [id number] Carvedilol (Carvedilol 6.25 Mg Tab) 6.25 mg PO BID [facility]REA Stop: 08/17/20 10:05 Last Admin: 07/18/20 10:51 Dose: 6.25 mg Documented by: [id number] Gabapentin (Gabapentin 300 Mg Cap) 300 mg PO BID [facility] Stop: 08/17/20 10:05 Last Admin: 07/18/20 10:51 Dose: 300 mg Documented by: [id number] Sodium Chloride (Nss) 500 mls @ 125 mls/hr IV .Q4H [facility] Stop: 08/17/20 05:44 Last Admin: 07/18/20 12:49 Dose: 125 mls/hr Documented by: [id number] Infusion: 07/18/20 12:49 Dose: 125 mls/hr Documented by: [id number] Admin: 07/18/20 12:46 Dose: Not Given Documented by: [id number] Admin: 07/18/20 10:39 Dose: 125 mls/hr Documented by: [id number] Infusion: 07/18/20 09:54 Dose: 0 mls/hr Documented by: [id number] Admin: 07/18/20 05:51 Dose: 125 mls/hr Documented by: [id number] Piperacillin Sod/Tazobactam (Sod 4.5 gm/ Dextrose) 120 mls @ 30 mls/hr IV Q8H [facility]; Protocol Stop: 07/28/20 15:59 Last Admin: 07/18/20 15:50 Dose: 30 mls/hr Documented by: [id number] Ibuprofen (Ibuprofen 600 Mg Tab) 600 mg PO Q6H PRN PRN Reason: Pain Stop: 08/17/20 10:05 Last Admin: 07/18/20 10:45 Dose: 600 mg Documented by: [id number] Pantoprazole Sodium (Pantoprazole 40 Mg Tab) 40 mg PO DAILY [facility] Stop: 08/17/20 10:05 Last Admin: 07/18/20 10:53 Dose: 40 mg Documented by: [id number] Ropinirole HCl (Ropinirole Hcl 1 Mg Tablet) 1 mg PO TID ANDREA Stop: 08/17/20 10:05 Last Admin: 07/18/20 12:56 Dose: 1 mg Documented by: [id number] Admin: 07/18/20 10:52 Dose: 1 mg Documented by: [id number] Tamsulosin HCl (Tamsulosin Hcl 0.4 Mg Cap) 0.4 mg PO DAILY [facility]RE[facility] Stop: 08/17/20 10:05 Last Admin: 07/18/20 10:52 Dose: 0.4 mg Documented by: [id number] Discontinued Medications Fentanyl Citrate (Fentanyl Citrate 100 Mcg/2 Ml Vial) Confirm Administered Dose 100 mcg .ROUTE .STK-MED ONE Stop: 07/18/20 02:54 Last Admin: 07/18/20 03:04 Dose: 100 mcg Documented by: [id number] Fentanyl Citrate (Fentanyl Citrate 100 Mcg/2 Ml Vial) 50 mcg IV NOW STA Stop: 07/18/20 03:51 Last Admin: 07/18/20 04:18 Dose: 50 mcg Documented by: [id number] Hydromorphone HCl (Hydromorphone Inj 0.5 Mg/0.5 Ml Syr) 0.5 mg IV NOW STA Stop: 07/18/20 05:34 Last Admin: 07/18/20 05:51 Dose: 0.5 mg Documented by: [id number] Sodium Chloride (Nss) 500 mls @ 999 mls/hr IV .Q31M ONE Stop: 07/18/20 03:58 Last Infusion: 07/18/20 04:04 Dose: 0 mls/hr Documented by: [id number] Admin: 07/18/20 03:31 Dose: 999 mls/hr Documented by: [id number] Piperacillin Sod/Tazobactam (Sod 4.5 gm/ Dextrose) 120 mls @ 240 mls/hr IV ONE ONE; Protocol Stop: 07/18/20 11:29 Last Infusion: 07/18/20 12:39 Dose: 0 mls/hr Documented by: [id number] Admin: 07/18/20 11:26 Dose: 240 mls/hr Documented by: [id number] Ioversol (Optiray 350 500ml) 120 ml IV ONCE ONE Stop: 07/18/20 03:04 Last Admin: 07/18/20 03:03 Dose: 120 ml Documented by: [id number] Ondansetron HCl (Ondansetron Inj 2 Mg/Ml 2 Ml Vial) Confirm Administered Dose 4 mg .ROUTE .[facility]xcient-[facility] ONE Stop: 07/18/20 02:54 Last Admin: 07/18/20 03:04 Dose: 4 mg Documented by: [id number] Imaging Data Radiologist's Impression: Abdomen/Pelvis CTA 07/18/20 02:58 CT angio chest dissec wo/w con, CT angio abdomen pelvis w con HISTORY: 75 years-old Male eval for dissection acute severe chest and abdominal pain COMPARISON: Chest radiograph 12/05/2018, lumbar spine MRI 10/07/2015 TECHNIQUE: CTA of the chest was obtained both with and without the use of 120 mL Optiray 350. CTA of the abdomen and pelvis was also obtained. 3-D coronal and sagittal MIPS were obtained from the axial data set and were submitted for review. All measurements were obtained according to NASCET criteria. A dose lowering technique was used consistent with the principals of [place]. FINDINGS: Limited exam secondary to upper extremity positioning with streak artifact from lumbar spinal fusion hardware also limiting the study. CTA CHEST: Moderate cardiomegaly. Extensive [place] coronary artery calcifications. Prior median sternotomy with CABG. Mural fibrofatty changes of the left ventricular apex suggest prior infarction. No pericardial effusion. Mild to moderate atherosclerotic plaque of the thoracic aorta without aneurysm or dissection. There is patency of the imaged great vessels. Mildly dilated pulmonary artery may reflect pulmonary artery hypertension. No filling defects identified to suggest pulmonary emboli. No intramural hematoma. CT CHEST: No thyroid nodule or adenopathy identified. Respiratory motion artifact limits the study. Mid and lower lung zone predominant groundglass densities. Mild bi basilar bronchial wall thickening. Pulmonary vascular congestion. No pneumothorax or pleural effusion. Decreased AP dimension of the trachea and bronchi may reflect tracheobronchomalacia. Unremarkable soft tissues. Degenerative changes of the shoulders and spine. No acute fracture. CTA ABDOMEN/PELVIS: Moderate atherosclerotic plaque. No abdominal aortic aneurysm or dissection. Patency of the common, internal and external iliac arteries and imaged femoral arteries. The celiac trunk, superior and inferior mesenteric arteries are patent. Mild calcified plaque at the origin of the renal arteries without high- grade stenosis. There are bilateral accessory renal arteries involving the inferior poles bilaterally. No aneurysm, dissection, high-grade stenosis or proximal branch occlusion. CT ABDOMEN/PELVIS: No pneumatosis or pneumoperitoneum. The spleen, moderately atrophic pancreas and adrenal glands are unremarkable. Cholelithiasis with stone noted within the gallbladder neck. The gallbladder is mildly distended with equivocal wall thickening. No significant associated inflammatory stranding identified. No biliary ductal dilation or choledocholithiasis. Indeterminate 2.7 cm hypodense lesion of the left hepatic lobe. Mild cortical thinning of the kidneys. There is no hydronephrosis. Unremarkable prostate and urinary bladder. Small fat filled inguinal hernias. There is no adenopathy. No bowel obstruction or bowel wall thickening. No ascites or mesenteric inflammation. Normal appendix. Tiny fat filled periumbilical hernia. No acute fracture. Posterior interbody chula and screw fusion at L2-L5 with bilateral iliac bolts and L4-L5 discectomy. No evidence of hardware complication. IMPRESSION: 1. Unremarkable CTA of the chest, abdomen and pelvis. Moderate atherosclerotic vascular disease without aneurysm, dissection, high-grade stenosis or arterial occlusion. 2. Cholelithiasis with gallbladder distention and equivocal wall thickening possibly representing early acute cholecystitis, better evaluated on the abdominal ultrasound study of same day. 3. Bibasilar predominant groundglass densities suggest atelectasis. A mild pneumonitis considered less likely. 4. No bowel obstruction or bowel wall thickening. 5. Additional findings as above. ACT 112: Negative or not required by law. The above report was generated using voice recognition software. It may contain grammatical, syntax or spelling errors. Electronically signed by: Vitor Danielle M.D. 07/18/2020 8:47 AM Chest CTA 07/18/20 03:00 CT angio chest dissec wo/w con, CT angio abdomen pelvis w con HISTORY: 75 years-old Male eval for dissection acute severe chest and abdominal pain COMPARISON: Chest radiograph 12/05/2018, lumbar spine MRI 10/07/2015 TECHNIQUE: CTA of the chest was obtained both with and without the use of 120 mL Optiray 350. CTA of the abdomen and pelvis was also obtained. 3-D coronal and sagittal MIPS were obtained from the axial data set and were submitted for review. All measurements were obtained according to NASCET criteria. A dose lowering technique was used consistent with the principals of [place]. FINDINGS: Limited exam secondary to upper extremity positioning with streak artifact from lumbar spinal fusion hardware also limiting the study. CTA CHEST: Moderate cardiomegaly. Extensive [place] coronary artery calcifications. Prior median sternotomy with CABG. Mural fibrofatty changes of the left ventricular apex suggest prior infarction. No pericardial effusion. Mild to moderate atherosclerotic plaque of the thoracic aorta without aneurysm or dissection. There is patency of the imaged great vessels. Mildly dilated pulmonary artery may reflect pulmonary artery hypertension. No filling defects identified to suggest pulmonary emboli. No intramural hematoma. CT CHEST: No thyroid nodule or adenopathy identified. Respiratory motion artifact limits the study. Mid and lower lung zone predominant groundglass densities. Mild bibasilar bronchial wall thickening. Pulmonary vascular congestion. No pneumothorax or pleural effusion. Decreased AP dimension of the trachea and bronchi may reflect tracheobronchomalacia. Unremarkable soft tissues. Degenerative changes of the shoulders and spine. No acute fracture. CTA ABDOMEN/PELVIS: Moderate atherosclerotic plaque. No abdominal aortic aneurysm or dissection. Patency of the common, internal and external iliac arteries and imaged femoral arteries. The celiac trunk, superior and inferior mesenteric arteries are patent. Mild calcified plaque at the origin of the renal arteries without high- grade stenosis. There are bilateral accessory renal arteries involving the inferior poles bilaterally. No aneurysm, dissection, high-grade stenosis or proximal branch occlusion. CT ABDOMEN/PELVIS: No pneumatosis or pneumoperitoneum. The spleen, moderately atrophic pancreas and adrenal glands are unremarkable. Cholelithiasis with stone noted within the gallbladder neck. The gallbladder is mildly distended with equivocal wall thickening. No significant associated inflammatory stranding identified. No biliary ductal dilation or choledocholithiasis. Indeterminate 2.7 cm hypodense lesion of the left hepatic lobe. Mild cortical thinning of the kidneys. There is no hydronephrosis. Unremarkable prostate and urinary bladder. Small fat filled inguinal hernias. There is no adenopathy. No bowel obstruction or bowel wall thickening. No ascites or mesenteric inflammation. Normal appendix. Tiny fat filled periumbilical hernia. No acute fracture. Posterior interbody chula and screw fusion at L2-L5 with bilateral iliac bolts and L4-L5 discectomy. No evidence of hardware complication. IMPRESSION: 1. Unremarkable CTA of the chest, abdomen and pelvis. Moderate atherosclerotic vascular disease without aneurysm, dissection, high-grade stenosis or arterial occlusion. 2. Cholelithiasis with gallbladder distention and equivocal wall thickening possibly representing early acute cholecystitis, better evaluated on the abdominal ultrasound study of same day. 3. Bibasilar predominant groundglass densities suggest atelectasis. A mild pneumonitis considered less likely. 4. No bowel obstruction or bowel wall thickening. 5. Additional findings as above. ACT 112: Negative or not required by law. The above report was generated using voice recognition software. It may contain grammatical, syntax or spelling errors. Electronically signed by: Vitor Danielle M.D. 07/18/2020 8:47 AM Gallbladder Ultrasound 07/18/20 04:28 US gallbladder HISTORY: 75 years-old Male gall stones and pain . Acute right upper quadrant abdominal pain with cholelithiasis COMPARISON: CTA abdomen and pelvis of same day TECHNIQUE: Multiple real-time sonographic images of the abdominal right upper quadrant were obtained assessing grayscale appearance and color flow FINDINGS: Limited exam secondary to body habitus. The pancreas is obscured by bowel gas. Mildly heterogeneous and slightly echogenic liver. The left hepatic lobe is not well seen secondary to acoustic window. No hepatic mass lesion identified. Distended gallbladder with layering sludge. No definite shadowing cholelith iasis. The gallstone within the gallbladder neck described on CT study of same day is not identified. The gallbladder wall measures within the upper limits of normal at 3 mm. No pericholecystic fluid identified. Positive sonographic Mas's sign. Normal common bile duct, 5 mm. Imaged right kidney is unremarkable without hydronephrosis. IMPRESSION: 1. Distended gallbladder with layering sludge and no definite shadowing cholelithiasis. The gallbladder wall measures within the upper limits of normal and the sonographic Mas sign was reported as positive. Findings are equivocal for acute cholecystitis. Findings could be correlated with nuclear medicine hepatobiliary scan. 2. No biliary ductal dilation. ACT 112: Negative or not required by law. The above report was generated using voice recognition software. It may contain grammatical, syntax or spelling errors. Electronically signed by: Vitor Danielle M.D. 07/18/2020 8:54 AM Discharge Plan Visit Data Chief Complaint: Abdominal Pain Stated Complaint: ABDOMINAL PAIN ED Provider: Silva Bo Discharge Problem: Epigastric abdominal pain Patient Disposition: Admitted As Inpatient Discharge Instructions Interventions: ED Discharge Assessment Last Done: 07/18/20 09:45
[2020-07-18 08:07] LABS: Influenza A virus by PCR Negative (Neg); Influenza B virus by PCR Negative (Neg); RSV by PCR Negative (Neg); SARS CoV2 RNA(COVID-19) InHosp NEGATIVE (Negative)
--- NOTE | 2020-07-18 08:48 | CT Scan Report ---
CT angio chest dissec wo/w con, CT angio abdomen pelvis w con HISTORY: 75 years-old Male eval for dissection acute severe chest and abdominal pain COMPARISON: Chest radiograph 12/05/2018, lumbar spine MRI 10/07/2015 TECHNIQUE: CTA of the chest was obtained both with and without the use of 120 mL Optiray 350. CTA of the abdomen and pelvis was also obtained. 3-D coronal and sagittal MIPS were obtained from the axial data set and were submitted for review. All measurements were obtained according to NASCET criteria. A dose lowering technique was used consistent with the principals of [place]. FINDINGS: Limited exam secondary to upper extremity positioning with streak artifact from lumbar spinal fusion hardware also limiting the study. CTA CHEST: Moderate cardiomegaly. Extensive [place] coronary artery calcifications. Prior median sternotomy with CABG. Mural fibrofatty changes of the left ventricular apex suggest prior infarction. No pericardial effusion. Mild to moderate atherosclerotic plaque of the thoracic aorta without aneurysm or dissectio n. There is patency of the imaged great vessels. Mildly dilated pulmonary artery may reflect pulmonar y artery hypertension. No filling defects identified to suggest pulmonary emboli. No intramural hemat lindy. CT CHEST: No thyroid nodule or adenopathy identified. Respiratory motion artifact limits the study. Mid and low er lung zone predominant groundglass densities. Mild bibasilar bronchial wall thickening. Pulmonary v ascular congestion. No pneumothorax or pleural effusion. Decreased AP dimension of the trachea and br onchi may reflect tracheobronchomalacia. Unremarkable soft tissues. Degenerative changes of the shoul ders and spine. No acute fracture. CTA ABDOMEN/PELVIS: Moderate atherosclerotic plaque. No abdominal aortic aneurysm or dissection. Patency of the common, i nternal and external iliac arteries and imaged femoral arteries. The celiac trunk, superior and infer ior mesenteric arteries are patent. Mild calcified plaque at the origin of the renal arteries without high-grade stenosis. There are bilateral accessory renal arteries involving the inferior poles bilat erally. No aneurysm, dissection, high-grade stenosis or proximal branch occlusion. CT ABDOMEN/PELVIS: No pneumatosis or pneumoperitoneum. The spleen, moderately atrophic pancreas and adrenal glands are u nremarkable. Cholelithiasis with stone noted within the gallbladder neck. The gallbladder is mildly d istended with equivocal wall thickening. No significant associated inflammatory stranding identified. No biliary ductal dilation or choledocholithiasis. Indeterminate 2.7 cm hypodense lesion of the left hepatic lobe. Mild cortical thinning of the kidneys. There is no hydronephrosis. Unremarkable prostate and urinary bladder. Small fat filled inguinal hernias. There is no adenopathy. No bowel obstruction or bowel wal l thickening. No ascites or mesenteric inflammation. Normal appendix. Tiny fat filled periumbilical h ernia. No acute fracture. Posterior interbody chula and screw fusion at L2-L5 with bilateral iliac bolt s and L4-L5 discectomy. No evidence of hardware complication. IMPRESSION: 1. Unremarkable CTA of the chest, abdomen and pelvis. Moderate atherosclerotic vascular disease witho ut aneurysm, dissection, high-grade stenosis or arterial occlusion. 2. Cholelithiasis with gallbladder distention and equivocal wall thickening possibly representing ear ly acute cholecystitis, better evaluated on the abdominal ultrasound study of same day. 3. Bibasilar predominant groundglass densities suggest atelectasis. A mild pneumonitis considered les s likely. 4. No bowel obstruction or bowel wall thickening. 5. Additional findings as above. ACT 112: Negative or not required by law. The above report was generated using voice recognition software. It may contain grammatical, syntax o r spelling errors. Electronically signed by: Vitor Danielle M.D. 07/18/2020 8:47 AM
--- NOTE | 2020-07-18 08:55 | Ultrasound Report ---
US gallbladder HISTORY: 75 years-old Male gall stones and pain . Acute right upper quadrant abdominal pain with cho lelithiasis COMPARISON: CTA abdomen and pelvis of same day TECHNIQUE: Multiple real-time sonographic images of the abdominal right upper quadrant were obtained assessing grayscale appearance and color flow FINDINGS: Limited exam secondary to body habitus. The pancreas is obscured by bowel gas. Mildly heterogeneous and slightly echogenic liver. The left hepatic lobe is not well seen secondary t o acoustic window. No hepatic mass lesion identified. Distended gallbladder with layering sludge. No definite shadowing cholelithiasis. The gallstone within the gallbladder neck described on CT study of same day is not identified. The gallbladder wall measures within the upper limits of normal at 3 mm. No pericholecystic fluid identified. Positive sonographic Mas's sign. Normal common bile duct, 5 mm. Imaged right kidney is unremarkable without hydronephrosis. IMPRESSION: 1. Distended gallbladder with layering sludge and no definite shadowing cholelithiasis. The gallbladd er wall measures within the upper limits of normal and the sonographic Mas sign was reported as po sitive. Findings are equivocal for acute cholecystitis. Findings could be correlated [facility]. 2. No biliary ductal dilation. ACT 112: Negative or not required by law. The above report was generated using voice recognition software. It may contain grammatical, syntax o r spelling errors. Electronically signed by: Vitor Danielle M.D. 07/18/2020 8:54 AM
--- NOTE | 2020-07-18 10:01 | History & Physical Report ---
Date of Service July 18, 2020 Assessment & Plan (1) Abdominal pain: Kush Randle is a 75-year-old male with PMH of Parkinson's Disease, CAD, lumbar stenosis with neurogenic claudication, obesity, hypercholesterolemia, hypertension, BPH who arrived with chief complaint of abdominal pain and wick bsequently had findings concerning for possible cholecystitis versus cholelithiasis. Abdominal pain Imaging with findings concerning for cholelithiasis versus cholecystitis Admit to MedSurg N.p.o. IV NSS at 125 mL/h HIDA scan ordered and pending Surgery consulted -Patient scheduled for lap shai tomorrow Zosyn 3.375 g IV every 8 Pain control with ibuprofen 600 mg every 6 hours as needed Zofran 4 mg IV every 6 hours as needed for nausea Parkinson's disease Continue carbidopa-levodopa per home regimen Continue home ropinirole 1 mg p.o. 3 times daily Hypertension/CAD EKG normal on admission Continue home carvedilol 6.25 mg p.o. twice daily Continue home amlodipine 5 mg p.o. twice daily Lumbar stenosis with neurogenic claudication Continue gabapentin 300 mg p.o. twice daily Hold home tramadol for now GERD Protonix 40 mg p.o. daily per hospital formulary BPH Continue home Flomax 0.4 mg p.o. daily Bilateral edema of lower extremity Hold home Lasix for now May need to be started if patient develops lower extremity edema DVT prophylaxis: SCDs, no chemoprophylaxis in anticipation of surgical intervention likely tomorrow FENGI: NSS at 125 cc/h, n.p.o. Dispo: MedSurg for likely surgical intervention CODE STATUS: Full (2) Parkinson's disease: (3) Coronary artery disease: (4) Lumbar stenosis with neurogenic claudication: (5) Obesity: (6) Hypercholesterolemia: (7) Essential hypertension: (8) BPH (benign prostatic hyperplasia): (9) Bilateral edema of lower extremity: History of Present Illness Chief Complaint: Abdominal pain Primary Care Provider: Lesley Montague MD Kush Randle is a 75-year-old male with PMH of Parkinson's Disease, CAD, lumbar stenosis with neurogenic claudication, obesity, hypercholesterolemia, hypertension, BPH who arrived at [facility] with complaints of belly pain starting yesterday at 7:30 PM. The patient's states that they initially tried to let the abdominal pain subside on its own, but it continued to worsen until 1 AM when the patient asked his to bring him to the emergency department. Patient states that pain is located at his upper abdomen, they did not notice that it was related to any specific type of food. This is a new occurrence for him and has never happened before. Patient's states that he had initially mentioned that he felt like he might throw up but never actually had nausea or vomiting. They both deny fever. They deny bowel changes but do mention that the patient tends to be constipated in the setting of his Parkinson's disease, they have not noticed any unexplained weight loss if anything he has had slight weight gain. In the ED patient received a dose of fentanyl 100 mcg x 1, Dilaudid 0.5 mg x 1, Zofran 4 mg x 1 and 1 L bolus of normal saline. CBC and CMP were largely nonconcerning, patient had negative troponin, EKG showed normal sinus rhythm and right bundle branch block. Abdominal CT showed cholelithiasis with gallbladder distention and equivocal wall thickening possibly representing early acute cholecystitis gallbladder ultrasound showed distended gallbladder with layering sludge and no definite cholelithiasis, findings were equivocal for acute cholecystitis. Radiologist documented that findings could be correlated with HIDA scan. Allergies Allergy/AdvReac Type Severity Reaction Status Date / Time No Known Drug Allergies Allergy Unknown Verified 07/18/20 03:04 Home Medications Medication Instructions Recorded Confirmed Type multivitamin 1 tab PO DAILY 11/05/18 07/18/20 History aspirin 81 mg chewable tablet 81 mg PO DAILY #30 tab 12/23/18 07/18/20 History naproxen 500 mg PO Q12H PRN #14 tab 05/03/19 07/18/20 Rx carbidopa 25 mg-levodopa 100 mg 2 tab PO QID 30 Days #240 tab 02/04/20 07/18/20 Rx tablet losartan 100 mg tablet 100 mg PO DAILY #90 tab 02/05/20 07/18/20 Rx ropinirole 1 mg tablet 1 mg PO TID #90 tab 03/03/20 07/18/20 Rx atorvastatin 40 mg tablet 40 mg PO DAILY #90 tab 04/06/20 07/18/20 Rx carvedilol 6.25 mg tablet 6.25 mg PO BID #180 tab 04/06/20 07/18/20 Rx cetirizine 10 mg tablet 10 mg PO DAILY #90 tab 04/06/20 07/18/20 Rx omeprazole 40 mg capsule,delayed 40 mg PO DAILY #90 cap 04/06/20 07/18/20 Rx release tamsulosin 0.4 mg capsule 0.4 mg PO DAILY #90 cap 04/06/20 07/18/20 Rx amlodipine 5 mg tablet 5 mg PO BID #180 tab 05/06/20 07/18/20 Rx cimetidine 800 mg tablet 800 mg PO .COMPLEX #30 tab 05/06/20 07/18/20 Rx potassium chloride 10 mEq 20 meq PO DAILY #180 tab 05/06/20 07/18/20 Rx tablet,extended release fluticasone propionate 50 2 spray INTNAS DAILY #16 g 06/03/20 07/18/20 Rx mcg/actuation nasal spray,suspension carbidopa ER 50 mg-levodopa 200 mg 1 tab PO .QD #30 tab 06/24/20 07/18/20 Rx tablet,extended release gabapentin 300 mg capsule 300 mg PO BID #90 cap 07/07/20 07/18/20 Rx tramadol 50 mg tablet 50 mg PO TID PRN #90 tab 07/07/20 07/18/20 Rx furosemide 40 mg tablet 40 mg PO PRN #90 tab 07/08/20 07/18/20 Rx Past Med/Surg History Medical History Acute cholecystitis Arthritis Balance problem Bilateral edema of lower extremity BPH (benign prostatic hyperplasia) Chronic venous insufficiency Coronary artery disease Essential hypertension High cholesterol History of ME (myocardial infarction) Hypercholesterolemia Hypertension Impaired fasting glucose Lumbar stenosis with neurogenic claudication Male erectile disorder of organic origin Mitral regurgitation Never a smoker Obesity Osteoarthritis of left knee Parkinson disease Parkinson's disease Raynaud's disease Seborrheic dermatitis Varicose veins of both lower extremities Surgical History H/O colonoscopy S/P CABG x 3 Evans teeth removed Family History Father Colitis Mother Myocardial infarction Coronary arteriosclerosis Sister Thrombophlebitis Denies family history of Ovarian cancer Prostate cancer Breast cancer Colorectal cancer Social History Smoking Status: Never smoker Second Hand Exposure: No; Hx Alcohol Use: No Hx Substance Use: No Preferred Language: Irish Communication Ability: Effective Visual Impairment: No Limitations Hearing Ability: Normal Pool Nurse Required: No Beliefs That Will Affect Care: None marital status: Current Living Situation: Spouse current occupational status: retired Other Information That Helps Us Care for You: No Feels Safe at Home: Yes Safety Concerns: Feels Safe At This Time Childhood Exposure to Second-Hand Smoke: No Dental Care, Regularly: Yes Physical Activity Frequency: Does not Exercise Seatbelt Use: always Sunscreen Use: Yes Assistive Devices: Cane and Walker Assistive Devices Comment: cane with patient Review of Systems Constitutional: Denies fever, chills, sweats, unexplained weight loss. Eyes: Denies any new visual symptoms. Ear, Nose, Mouth, Throat: No sore throat no nasal congestion no hearing loss Respiratory: Denies cough, shortness of breath. Cardiovascular: Additional Comments: Denies chest pain, palpitations. mentions patient does tend to have bilateral lower extremity edema, uses Lasix for this. Gastrointestinal: Per HPI. Musculoskeletal: No new musculoskeletal complaints in the setting of pre- existing Parkinson's disease. Neurologic: No new no neurological complaints or symptoms in the setting of pre-existing Parkinson's disease. Physical Exam Constitutional: Obese 75-year-old male who is laying in bed in some mild distress due to pain. Mainly mumbles answers to questions but does answer appropriately when prompted. Eyes: Pupils equal round and reactive to light, extraocular movements intact. ENMT: External ear and nose normal, oropharynx normal. Neck: Visual inspection normal. Trachea midline. Respiratory: Clear to auscultation bilaterally. No wheezes, rhonchi, rales. Cardiovascular: Regular rate and rhythm. No murmurs, gallops, rubs. No edema. Gastrointestinal (Abdomen): Bowel sounds positive in all 4 quadrants. Nondistended, soft. Tender to palpation at right upper quadrant. Mas sign positive. Musculoskeletal: No cyanosis or clubbing. Moves all extremities. Skin: No rashes. Warm and dry. Neurologic: Cranial nerves II to XII grossly intact. Psychiatric: Alert and oriented x3, mood congruent with affect. Lymphatic: No cervical or axillary lymphadenopathy Results & Data Results & Data ([facility]) Vital Signs (Past 12 Hours) Vital Signs Temp Pulse Pulse Resp BP BP Pulse Ox 07/18/20 09:30 101 H 168/87 H 93 07/18/20 09:01 93 H 175/98 H 91 07/18/20 08:31 107 H 188/97 H 91 07/18/20 07:57 108 H 179/95 H 96 07/18/20 07:30 97 H 24 94 07/18/20 07:00 96 H 22 169/99 H 96 07/18/20 03:27 76 77 18 187/86 H 99 07/18/20 02:56 83 18 152/78 H 96 07/18/20 01:42 36.6 C 64 20 190/94 H 95 Code Status & VTE Plan VTE Prophylaxis Plan VTE Prophylaxis will be ordered: Yes Supervising Physician Co-Signing Physician Notes I personally examined the patient and verified all lopez points of history and exam, discussed case, and agree with decision making with Dr Leung abdominal pain - although feeling better than this AM. temp coming down. vitals noted nad heent nc at mmm breathing unlabored no accessory muscles good effort abd soft mod distended RUQ tenderness remainder of abdomen fairly benign cholecystitis - zosyn, supportive care, anticipate choley DVT proph - hold given likely for surgery in AM d/w him - full code, otherwise as above Resident Activity Tracking Resident Involvement: Resident Care Provided Care Provided: Adult Hospital Medicine
[2020-07-18] MEDS ORDERED: IBUPROFEN 600 MG TAB PO PRN (10:06)
[2020-07-18] MEDS ORDERED: ONDANSETRON INJ 2 MG/ML 2 ML VIAL IV PRN (10:06)
[2020-07-18] MEDS ORDERED: PIPERACILL/TAZOBAC CONSULT ACTIVE PRN (10:35)
--- NOTE | 2020-07-18 10:44 | Surgery Consultation ---
Date of Consultation July 18, 2020 Assessment & Plan (1) Acute cholecystitis: con't IVF begin IV zosyn HIDA scan pending NPO p MN will plan lap shai with likely stone and tender/palpable gallblagdder on exam Present on Admission?: Yes History of Present Illness Attending Physician: Alejandro Isaac, History of Present Illness This is a 79 YO male with acute abdominal pain beginning last night at 7PM. He last ate prior to this pain. He has associated nausea and fevers. He denies vomiting, urinary symptoms, or anorexia. He has not noticed this pain prior to this episode. CT scan shows stone and US shows signs of inflammation. Normal CBD diameter. Allergies Allergy/AdvReac Type Severity Reaction Status Date / Time No Known Drug Allergies Allergy Unknown Verified 07/18/20 03:04 Home Medications Medication Instructions Recorded Confirmed Type multivitamin 1 tab PO DAILY 11/05/18 07/18/20 History aspirin 81 mg chewable tablet 81 mg PO DAILY #30 tab 12/23/18 07/18/20 History naproxen 500 mg PO Q12H PRN #14 tab 05/03/19 07/18/20 Rx carbidopa 25 mg-levodopa 100 mg 2 tab PO QID 30 Days #240 tab 02/04/20 07/18/20 Rx tablet losartan 100 mg tablet 100 mg PO DAILY #90 tab 02/05/20 07/18/20 Rx ropinirole 1 mg tablet 1 mg PO TID #90 tab 03/03/20 07/18/20 Rx atorvastatin 40 mg tablet 40 mg PO DAILY #90 tab 04/06/20 07/18/20 Rx carvedilol 6.25 mg tablet 6.25 mg PO BID #180 tab 04/06/20 07/18/20 Rx cetirizine 10 mg tablet 10 mg PO DAILY #90 tab 04/06/20 07/18/20 Rx omeprazole 40 mg capsule,delayed 40 mg PO DAILY #90 cap 04/06/20 07/18/20 Rx release tamsulosin 0.4 mg capsule 0.4 mg PO DAILY #90 cap 04/06/20 07/18/20 Rx amlodipine 5 mg tablet 5 mg PO BID #180 tab 05/06/20 07/18/20 Rx cimetidine 800 mg tablet 800 mg PO .COMPLEX #30 tab 05/06/20 07/18/20 Rx potassium chloride 10 mEq 20 meq PO DAILY #180 tab 05/06/20 07/18/20 Rx tablet,extended release fluticasone propionate 50 2 spray INTNAS DAILY #16 g 06/03/20 07/18/20 Rx mcg/actuation nasal spray,suspension carbidopa ER 50 mg-levodopa 200 mg 1 tab PO .QD #30 tab 06/24/20 07/18/20 Rx tablet,extended release gabapentin 300 mg capsule 300 mg PO BID #90 cap 07/07/20 07/18/20 Rx tramadol 50 mg tablet 50 mg PO TID PRN #90 tab 07/07/20 07/18/20 Rx furosemide 40 mg tablet 40 mg PO PRN #90 tab 07/08/20 07/18/20 Rx Patient History Medical History (Updated 07/18/20 @ 10:46 by Billy Arias MD) Acute cholecystitis Arthritis Balance problem Bilateral edema of lower extremity BPH (benign prostatic hyperplasia) Chronic venous insufficiency Coronary artery disease Essential hypertension High cholesterol History of [place] (myocardial infarction) Hypercholesterolemia Hypertension Impaired fasting glucose Lumbar stenosis with neurogenic claudication Male erectile disorder of organic origin Mitral regurgitation Never a smoker Obesity Osteoarthritis of left knee Parkinson disease Parkinson's disease Raynaud's disease Seborrheic dermatitis Varicose veins of both lower extremities Surgical History H/O colonoscopy S/P CABG x 3 [place] teeth removed Family History Father Colitis Mother Myocardial infarction Coronary arteriosclerosis Sister Thrombophlebitis Denies family history of Ovarian cancer Prostate cancer Breast cancer Colorectal cancer Social History Smoking Status: Never smoker Second Hand Exposure: No; Hx Alcohol Use: No Hx Substance Use: No Preferred Language: Nepalese Communication Ability: Effective Visual Impairment: No Limitations Hearing Ability: Normal Transfer Car Operator Required: No Beliefs That Will Affect Care: None marital status: Current Living Situation: Spouse current occupational status: retired Other Information That Helps Us Care for You: No Feels Safe at Home: Yes Safety Concerns: Feels Safe At This Time Childhood Exposure to Second-Hand Smoke: No Dental Care, Regularly: Yes Physical Activity Frequency: Does not Exercise Seatbelt Use: always Sunscreen Use: Yes Assistive Devices: Cane and Walker Assistive Devices Comment: cane with patient Review of Systems Constitutional: + fever; no chills, no sweats and no anorexia Respiratory: no cough and no dyspnea Cardiovascular: no chest pain Gastrointestinal: + abdominal pain and + nausea; no vomiting, no change in bowel habits and no blood in stools Genitourinary: no dysuria Musculoskeletal: + back pain; no joint pain Integumentary: no rash and no change in skin color Neurologic: + generalized weakness; no localized weakness Psychiatric: no depression Endocrine: + fatigue Hematologic / Lymphatic: no easy bleeding and no easy bruising Physical Exam Constitutional: well developed, well nourished and + obese ENMT: external ear and nose normal, oropharynx normal Neck: trachea midline Respiratory: normal respiratory effort, lungs clear to auscultation no respiratory distress Cardiovascular: RRR, no murmur, no edema Gastrointestinal (Abdomen): Inspection/Auscultation: abdomen normal to inspection and normal bowel sounds; abdomen not distended Percussion/Palpation: + abdomen tender and abdomen soft Results & Data ([facility]) Vital Signs (Past 12 Hours) Vital Signs Temp Pulse Pulse Pulse Resp BP BP 07/18/20 10:13 38.2 C H 98 H 20 157/82 H 07/18/20 10:10 37.9 C H 98 H 20 157/82 H 07/18/20 09:30 101 H 168/87 H 07/18/20 09:01 93 H 175/98 H 07/18/20 08:31 107 H 188/97 H 07/18/20 07:57 108 H 179/95 H 07/18/20 07:30 97 H 24 07/18/20 07:00 96 H 22 169/99 H 07/18/20 03:27 76 77 18 187/86 H 07/18/20 02:56 83 18 152/78 H 07/18/20 01:42 36.6 C 64 20 190/94 H Pulse Ox 07/18/20 10:13 95 07/18/20 10:10 92 07/18/20 09:30 93 07/18/20 09:01 91 07/18/20 08:31 91 07/18/20 07:57 96 07/18/20 07:30 94 07/18/20 07:00 96 07/18/20 03:27 99 07/18/20 02:56 96 07/18/20 01:[address] angio chest dissec wo/w con, CT angio abdomen pelvis w con HISTORY: 75 years-old Male eval for dissection acute severe chest and abdominal pain COMPARISON: Chest radiograph 12/05/2018, lumbar spine MRI 10/07/2015 TECHNIQUE: CTA of the chest was obtained both with and without the use of 120 mL Optiray 350. CTA of the abdomen and pelvis was also obtained. 3-D coronal and sagittal MIPS were obtained from the axial data set and were submitted for review. All measurements were obtained according to NASCET criteria. A dose lowering technique was used consistent with the principals of CALIXTO. FINDINGS: Limited exam secondary to upper extremity positioning with streak artifact from lumbar spinal fusion hardware also limiting the study. CTA CHEST: Moderate cardiomegaly. Extensive [place]ka coronary artery calcifications. Prior median sternotomy with CABG. Mural fibrofatty changes of the left ventricular apex suggest prior infarction. No pericardial effusion. Mild to moderate atherosclerotic plaque of the thoracic aorta without aneurysm or dissection. There is patency of the imaged great vessels. Mildly dilated pulmonary artery may reflect pulmonary artery hypertension. No filling defects identified to suggest pulmonary emboli. No intramural hematoma. CT CHEST: No thyroid nodule or adenopathy identified. Respiratory motion artifact limits the study. Mid and lower lung zone predominant groundglass densities. Mild bibasilar bronchial wall thickening. Pulmonary vascular congestion. No pneumothorax or pleural effusion. Decreased AP dimension of the trachea and bronchi may reflect tracheobronchomalacia. Unremarkable soft tissues. Degenerative changes of the shoulders and spine. No acute fracture. CTA ABDOMEN/PELVIS: Moderate atherosclerotic plaque. No abdominal aortic aneurysm or dissection. Patency of the common, internal and external iliac arteries and imaged femoral arteries. The celiac trunk, superior and inferior mesenteric arteries are patent. Mild calcified plaque at the origin of the renal arteries without high- grade stenosis. There are bilateral accessory renal arteries involving the inferior poles bilaterally. No aneurysm, dissection, high-grade stenosis or proximal branch occlusion. CT ABDOMEN/PELVIS: No pneumatosis or pneumoperitoneum. The spleen, moderately atrophic pancreas and adrenal glands are unremarkable. Cholelithiasis with stone noted within the gallbladder neck. The gallbladder is mildly distended with equivocal wall thickening. No significant associated inflammatory stranding identified. No biliary ductal dilation or choledocholithiasis. Indeterminate 2.7 cm hypodense lesion of the left hepatic lobe. Mild cortical thinning of the kidneys. There is no hydronephrosis. Unremarkable prostate and urinary bladder. Small fat filled inguinal hernias. There is no adenopathy. No bowel obstruction or bowel wall thickening. No ascites or mesenteric inflammation. Normal appendix. Tiny fat filled periumbilical hernia. No acute fracture. Posterior interbody chula and screw fusion at L2-L5 with bilateral iliac bolts and L4-L5 discectomy. No evidence of hardware co mplication. IMPRESSION: 1. Unremarkable CTA of the chest, abdomen and pelvis. Moderate atherosclerotic vascular disease without aneurysm, dissection, high-grade stenosis or arterial occlusion. 2. Cholelithiasis with gallbladder distention and equivocal wall thickening possibly representing early acute cholecystitis, better evaluated on the abdominal ultrasound study of same day. 3. Bibasilar predominant groundglass densities suggest atelectasis. A mild pneumonitis considered less likely. 4. No bowel obstruction or bowel wall thickening. 5. Additional findings as above. US gallbladder HISTORY: 75 years-old Male gall stones and pain . Acute right upper quadrant abdominal pain with cholelithiasis COMPARISON: CTA abdomen and pelvis of same day TECHNIQUE: Multiple real-time sonographic images of the abdominal right upper quadrant were obtained assessing grayscale appearance and color flow FINDINGS: Limited exam secondary to body habitus. The pancreas is obscured by bowel gas. Mildly heterogeneous and slightly echogenic liver. The left hepatic lobe is not well seen secondary to acoustic window. No hepatic mass lesion identified. Distended gallbladder with layering sludge. No definite shadowing cholelithiasis. The gallstone within the gallbladder neck described on CT study of same day is not identified. The gallbladder wall measures within the upper limits of normal at 3 mm. No pericholecystic fluid identified. Positive sonographic Mas's sign. Normal common bile duct, 5 mm. Imaged right kidney is unremarkable without hydronephrosis. IMPRESSION: 1. Distended gallbladder with layering sludge and no definite shadowing cholelithiasis. The gallbladder wall measures within the upper limits of normal and the sonographic Mas sign was reported as positive. Findings are equivocal for acute cholecystitis. Findings could be correlated with nuclear medicine hepatobiliary scan. 2. No biliary ductal dilation.
[2020-07-18] MEDS: GABAPENTIN 300 MG CAP PO SCH ×2 (10:51→20:32)
[2020-07-18] MEDS: carvediloL 6.25 MG TAB PO SCH ×2 (10:51→20:32)
[2020-07-18] MEDS: TAMSULOSIN HCL 0.4 MG CAP PO SCH (10:52)
[2020-07-18] MEDS: rOPINIRole HCL 1 MG TABLET PO SCH ×3 (10:52→20:33)
[2020-07-18] MEDS: amLODIPine BESYLATE 5 MG TAB PO SCH ×2 (10:53→20:32)
[2020-07-18] MEDS: CARBIDOPA/LEVODOPA 50/200MG EXT REL TAB PO SCH (10:53)
[2020-07-18] MEDS: PANTOprazole 40 MG TAB PO SCH (10:53)
[2020-07-18] MEDS: CARBIDOPA/LEVODOPA 25/100MG TAB PO SCH ×4 (10:54→20:33)
--- NOTE | 2020-07-18 10:55 | Anesthesiology Consultation ---
Date of Service July 18, 2020 Assessment & Plan (1) Encounter for pre-operative examination: Chart Review Chart Review: freelance data entry initiated History Surgery Operation Date: 07/19/20 08:00 Proposed Procedures p Laparoscopic Cholecystectomy - Billy Arias MD Height/Weight Height: 5 ft 5 in Weight: 119.9 kg Allergies Allergy/AdvReac Type Severity Reaction Status Date / Time No Known Drug Allergies Allergy Unknown Verified 07/18/20 03:04 Medications Home Medications Medication Instructions Recorded Confirmed Last Taken multivitamin 1 tab PO DAILY 11/05/18 07/18/20 05/03/19 aspirin 81 mg chewable tablet 81 mg PO DAILY #30 tab 12/23/18 07/18/20 05/03/19 naproxen 500 mg PO Q12H PRN #14 tab 05/03/19 07/18/20 Unknown carbidopa 25 mg-levodopa 100 mg 2 tab PO QID 30 Days #240 tab 02/04/20 07/18/20 Unknown tablet losartan 100 mg tablet 100 mg PO DAILY #90 tab 02/05/20 07/18/20 Unknown ropinirole 1 mg tablet 1 mg PO TID #90 tab 03/03/20 07/18/20 Unknown atorvastatin 40 mg tablet 40 mg PO DAILY #90 tab 04/06/20 07/18/20 Unknown carvedilol 6.25 mg tablet 6.25 mg PO BID #180 tab 04/06/20 07/18/20 Unknown cetirizine 10 mg tablet 10 mg PO DAILY #90 tab 04/06/20 07/18/20 Unknown omeprazole 40 mg capsule,delayed 40 mg PO DAILY #90 cap 04/06/20 07/18/20 Unknown release tamsulosin 0.4 mg capsule 0.4 mg PO DAILY #90 cap 04/06/20 07/18/20 Unknown amlodipine 5 mg tablet 5 mg PO BID #180 tab 05/06/20 07/18/20 Unknown cimetidine 800 mg tablet 800 mg PO .COMPLEX #30 tab 05/06/20 07/18/20 Unknown potassium chloride 10 mEq 20 meq PO DAILY #180 tab 05/06/20 07/18/20 Unknown tablet,extended release fluticasone propionate 50 2 spray INTNAS DAILY #16 g 06/03/20 07/18/20 Unknown mcg/actuation nasal spray,suspension carbidopa ER 50 mg-levodopa 200 mg 1 tab PO .QD #30 tab 06/24/20 07/18/20 Unknown tablet,extended release gabapentin 300 mg capsule 300 mg PO BID #90 cap 07/07/20 07/18/20 Unknown tramadol 50 mg tablet 50 mg PO TID PRN #90 tab 07/07/20 07/18/20 Unknown furosemide 40 mg tablet 40 mg PO PRN #90 tab 07/08/20 07/18/20 Unknown Active Medications Generic Name Dose Route Start Last Admin Trade Name Russ PRN Reason Stop Dose Admin Amlodipine Besylate 5 mg 07/18/20 10:06 07/18/20 10:53 Amlodipine Besylate 5 Mg Tab PO 08/17/20 10:05 5 mg BID ANDREA Administration Carbidopa/Levodopa 2 tab 07/18/20 10:06 07/18/20 10:54 Carbidopa/Levodopa 25/100mg Tab PO 08/17/20 10:05 2 tab QID ANDREA Administration Carbidopa/Levodopa 1 tab 07/18/20 10:06 07/18/20 10:53 Carbidopa/Levodopa 50/200mg Ext Rel Tab PO 08/17/20 10:05 1 tab DAILY ANDREA Administration Carvedilol 6.25 mg 07/18/20 10:06 07/18/20 10:51 Carvedilol 6.25 Mg Tab PO 08/17/20 10:05 6.25 mg BID ANDREA Administration Gabapentin 300 mg 07/18/20 10:06 07/18/20 10:51 Gabapentin 300 Mg Cap PO 08/17/20 10:05 300 mg BID ANDREA Administration Sodium Chloride 500 mls @ 125 mls/hr 07/18/20 05:45 07/18/20 10:39 Nss IV 08/17/20 05:44 125 mls/hr .Q4H ANDREA Administration Ibuprofen 600 mg 07/18/20 10:06 07/18/20 10:45 Ibuprofen 600 Mg Tab PO 08/17/20 10:05 600 mg Q6H PRN Administration Pain Pantoprazole Sodium 40 mg 07/18/20 10:06 07/18/20 10:53 Pantoprazole 40 Mg Tab PO 08/17/20 10:05 40 mg DAILY ANDREA Administration Ropinirole HCl 1 mg 07/18/20 10:06 07/18/20 10:52 Ropinirole Hcl 1 Mg Tablet PO 08/17/20 10:05 1 mg TID ANDREA Administration Tamsulosin HCl 0.4 mg 07/18/20 10:06 07/18/20 10:52 Tamsulosin Hcl 0.4 Mg Cap PO 08/17/20 10:05 0.4 mg DAILY ANDREA Administration Past Medical History Medical History Acute cholecystitis Arthritis Balance problem Bilateral edema of lower extremity BPH (benign prostatic hyperplasia) Chronic venous insufficiency Coronary artery disease Essential hypertension High cholesterol History of [place] (myocardial infarction) Hypercholesterolemia Hypertension Impaired fasting glucose Lumbar stenosis with neurogenic claudication Male erectile disorder of organic origin Mitral regurgitation Never a smoker Obesity Osteoarthritis of left knee Parkinson disease Parkinson's disease Raynaud's disease Seborrheic dermatitis Varicose veins of both lower extremities Past Family History Family History Father Colitis Mother Myocardial infarction Coronary arteriosclerosis Sister Thrombophlebitis Denies family history of Ovarian cancer Prostate cancer Breast cancer Colorectal cancer Past Surgical History Surgical History H/O colonoscopy S/P CABG x 3 [place] teeth removed Social History Smoking Status: Never smoker Hx Alcohol Use: No Hx Substance Use: No Physical Exam Vital Signs Last Vital Signs Temp 100.8 F H 07/18/20 10:13 Pulse 98 H 07/18/20 10:13 Resp 20 07/18/20 10:13 BP 157/82 H 07/18/20 10:13 Pulse Ox 95 07/18/20 10:13 Testing Laboratory Results 07/18/20 02:38 07/18/20 02:38 Electrocardiogram Date: 07/18/20 Normal sinus rhythm, rate 76 bpm Right bundle branch block Abnormal ECG When compared with ECG of 16-JUL-2012 16:10, Right bundle branch block is now Present
[2020-07-18] MEDS ORDERED: PIPERACILLIN/TAZOBACTAM 4.5 GM in DEXTROSE 5% 100 ML IV ONE (11:00)
[2020-07-18 11:31] LABS: Appearance Urine Clear (Clear); Bacteria Urine Automated Negative (Negative); Bilirubin Urine Negative (Negative); Blood Urine 2+ (Negative); Cast Urine Automated 0 /lpf (0-5); Color Urine Yellow; Glucose Urine UA Negative (Negative); Ketones Urine Negative (Negative); Leukocyte Esterase Urine Negative (Negative); Nitrite Urine Negative (Negative); Protein Urine Trace (Negative); Specific Gravity Urine 1.037 (1.000-1.030); Urobilinogen Urine Negative (Negative); pH Urine 6.5 (4.5-7.5)
[2020-07-18] MEDS: PIPERACILLIN/TAZOBACTAM 4.5 GM in DEXTROSE 5% 100 ML IV SCH ×2 (15:50→23:40)
[2020-07-18] MEDS: ACETAMINOPHEN 325 MG TAB PO PRN (16:47)
--- NOTE | 2020-07-18 18:42 | Electrocardiogram Report ---
Test Reason : Blood Pressure : / mmHG Vent. Rate : 076 BPM Atrial Rate : 076 BPM P-R Int : 192 ms QRS Dur : 126 ms QT Int : 426 ms P-R-T Axes : 046 026 062 degrees QTc Int : 479 ms Normal sinus rhythm Right bundle branch block Abnormal ECG When compared with ECG of 16-JUL-2012 16:10, Right bundle branch block is now Present Confirmed by Antonio Amador ([id number]) on 07/18/2020 6:41:46 PM Referred By: REFERRED SELF Confirmed By:Kalmesh Amador
--- NOTE | 2020-07-18 19:21 | Billing Data ---
Date of Service July 18, 2020 Coding Level of Care Code 35362 Initial Inpt Care Lvl 3
[2020-07-18] MEDS: ALBUT/IPRATROP 3MG/0.5MG NEB 3 ML VIAL NEB PRN (22:07)
[2020-07-19] MEDS ORDERED: ceFAZolin 2000MG 2,000 MG/15 ML SYR IV SCH (06:00)
[2020-07-19] MEDS: ACETAMINOPHEN 325 MG TAB PO PRN (06:04)
[2020-07-19] MEDS: PIPERACILLIN/TAZOBACTAM 4.5 GM in DEXTROSE 5% 100 ML IV SCH ×3 (07:03→23:57)
--- NOTE | 2020-07-19 07:16 | Hospitalist Progress Note ---
Date of Service July 19, 2020 Assessment & Plan (1) Abdominal pain: Kush Randle is a 75-year-old male with PMH of Parkinson's Disease, CAD, lumbar stenosis with neurogenic claudication, obesity, hypercholesterolemia, hypertension, BPH who arrived with chief complaint of abdominal pain and wick bsequently found to have gangrenous cholecystitis. He is now POD-0. Cholecystitis -- s/p cholecystectomy 07/19 Initial imaging revealing of cholelithiasis versus cholecystitis - Surgery consulted for aid in management -- now s/p cholecystectomy with findings consistent with gangrenous cholecystitis on 07/19 - Continue Zosyn q8h - Advance diet as tolerated - Analgesia - motrin, percocet, morphine depending on level of pain - Zofran prn for nausea Parkinson's disease Continue carbidopa-levodopa per home regimen Continue home ropinirole 1 mg p.o. 3 times daily Hypertension/CAD -- follows with Dr. Bender in Cardiology EKG normal on admission - s/p CABG x 3, CCS class 1 -- most recent stress echo 07/18 w/o ischemia Continue home carvedilol 6.25 mg p.o. twice daily Continue home amlodipine 5 mg p.o. twice daily Lumbar stenosis with neurogenic claudication Continue gabapentin 300 mg p.o. twice daily Hold home tramadol for now - Analgesia as above GERD Protonix 40 mg p.o. daily per hospital formulary BPH Continue home Flomax 0.4 mg p.o. daily Bilateral edema of lower extremity Hold home Lasix for now Mild LE edema persists in the lower extremities b/l - Repeat TTE DVT prophylaxis: SCDs FENGI: Clear liquid diet -- advance as tolerated Dispo: MedSurg for likely surgical intervention Consults: Gen Surg CODE STATUS: Full (2) Parkinson's disease: (3) Coronary artery disease: (4) Lumbar stenosis with neurogenic claudication: (5) Obesity: (6) Hypercholesterolemia: (7) Essential hypertension: (8) BPH (benign prostatic hyperplasia): (9) Bilateral edema of lower extremity: Admission and Anticipated Discharge Date Admission Date: July 18, 2020 Supervising Physician Co-Signing Physician Notes I personally examined the patient and verified all lopez points of history and exam, discussed case, and agree with decision making with Dr Roland Feeling okay postop. No complaints, a little groggy. Later nursing notes that he was having new bibasilar rales and a little bit of an oxygen requirementreevaluated, he generally feels okay but is needing oxygen. No history of CHF that he knows of. vitals noted nad heent nc at mmm breathing unlabored no accessory muscles good effort but bibasilar rales, no rhonchi no wheezes good effort. Skin no rashes no pallor or icterus. Clinical picture consistent with pulmonary edemaI would not yet want to label this is any kind of CHF, given the lack of chronicity, and his immediate perioperative state. For now stop fluids give Lasix x1, check echo, follow clinically. cholecystitis - zosyn, supportive care, DVT proph -start Lovenox d/w him - full code, otherwise as above Subjective Some pain overnight - Dilaudid x 1. Otherwise NAEO. OR this AM for suspected cholecystitis -- surgical findings inclusive of cholecystitis with gangrenous changes This afternoon post-op feeling OK. Some expected pain around the incision sites but otherwise no issues from his perspective Using incentive spirometry Has not yet passed gas, but feels like he has to No cp/palpitations/sob Review of Systems Review of Systems: as per HPI Physical Exam Constitutional: Tired appearing 75-year-old male who is lying back in his hospital bed, looking at the window, upon my arrival. He converses freely and is in no acute distress. Eyes: Anicteric sclerae Neck: Neck veins are flat, no appreciable JVD Respiratory: Good respiratory effort with symmetric expansion of the chest. Lungs demonstrating intermittent end-expiratory wheezes primarily in the bases Observed use of incentive spirometry reveals inspiratory volumes, approximately <500 cc Cardiovascular: Normal rate and regular rhythm. S1 and S2 are present without murmurs rubs or gallops Gastrointestinal (Abdomen): Hypoactive bowel sounds. Visualization of the abdomen does reveal intact postsurgical bandages as well as a drain that is in place. Abdomen is moderately distended to palpation, mildly but diffusely tender throughout. No rebound or guarding. Musculoskeletal: 1+ pitting edema in the lower extremities b/l Psychiatric: Fully alert and oriented Results & Data Results & Data ([facility]) Vital Signs (Past 12 Hours) Vital Signs Temp Pulse Resp BP Pulse Ox 07/19/20 06:46 37.2 C 77 18 131/74 93 07/18/20 23:42 36.9 C 07/18/20 22:12 80 24 94 07/18/20 20:29 38.2 C H 83 18 150/78 H 94 07/18/20 19:41 92 Resident Activity Tracking Resident Involvement: Resident Care Provided Care Provided: Adult Hospital Medicine
[2020-07-19] MEDS ORDERED: fentaNYL citrate 100 MCG/2 ML VIAL IV PRN (07:21)
[2020-07-19] MEDS ORDERED: ATROPINE SULFATE 0.1 MG/ML 10ML SYR IV PRN (07:21)
[2020-07-19] MEDS ORDERED: ePHEDrine sulfate 50 MG/ML AMP IV PRN (07:21)
[2020-07-19] MEDS ORDERED: ONDANSETRON INJ 2 MG/ML 2 ML VIAL IV PRN (07:21)
[2020-07-19] MEDS ORDERED: BUPIVACAINE/EPINEPHRINE 0.5% MPF 1:200,000 30 ML VIAL ONE (07:35)
--- NOTE | 2020-07-19 07:40 | Surgery Progress Note ---
Date of Service July 19, 2020 Assessment & Plan (1) Acute cholecystitis: to OR for lap shai Present on Admission?: Yes Admission and Anticipated Discharge Date Admission Date: July 18, 2020 Subjective ready for OR Review of Systems Constitutional: no fever and no chills Respiratory: no dyspnea Cardiovascular: no chest pain Gastrointestinal: + abdominal pain Physical Exam Constitutional: well developed and well nourished; no acute distress Respiratory: normal respiratory effort, lungs clear to auscultation Cardiovascular: RRR, no murmur, no edema Gastrointestinal (Abdomen): Inspection/Auscultation: abdomen normal to inspection and normal bowel sounds; abdomen not distended Percussion/Palpation: + abdomen tender Skin: no jaundice Results & Data ([facility]) Vital Signs (Past 12 Hours) Vital Signs Temp Pulse Resp BP Pulse Ox 07/19/20 06:46 37.2 C 77 18 131/74 93 07/18/20 23:42 36.9 C 07/18/20 22:12 80 24 94 07/18/20 20:29 38.2 C H 83 18 150/78 H 94 07/18/20 19:41 92
[2020-07-19] MEDS ORDERED: fentaNYL citrate 100 MCG/2 ML VIAL ONE (07:49)
[2020-07-19] MEDS ORDERED: ROCURONIUM BROMIDE 10 MG/ML 5 ML VIAL IV ONE (07:53)
[2020-07-19] MEDS ORDERED: PROPOFOL IV EMULSION 10 MG/ML 20 ML VIAL IV ONE (07:53)
[2020-07-19] MEDS ORDERED: LIDOCAINE HCL 2% 2 ML VIAL/AMP(20MG/ML) INFIL ONE (07:53)
[2020-07-19] MEDS ORDERED: ceFAZolin 2000MG 2,000 MG/15 ML SYR IV ONE (08:22)
[2020-07-19] MEDS ORDERED: PHENYLEPHRINE 100MCG/ML 5ML SYR ONE (08:56)
[2020-07-19] MEDS ORDERED: NEOSTIGMINE METHYLSULFATE 5 MG/5 ML SYR ONE (08:56)
[2020-07-19] MEDS ORDERED: GLYCOPYRROLATE 0.2 MG/ML VIAL ONE (08:56)
[2020-07-19] MEDS ORDERED: ONDANSETRON INJ 2 MG/ML 2 ML VIAL ONE (08:56)
[2020-07-19] MEDS ORDERED: ePHEDrine sulfate 50 MG/ML SYR ONE (08:56)
[2020-07-19] MEDS ORDERED: SURGICEL ABSORB HEMOSTAT 2IN X 14IN TOP ONE (08:59)
--- NOTE | 2020-07-19 09:26 | Post Operative Brief Note ---
Immediate Post Op Note v1 Date of Surgery July 19, 2020 Pre & Post Diagnosis Operation Date: 07/19/20 08:00 Pre-Op Diagnosis: Cholecystitis Post-Op Diagnosis: Cholecystitis I identified the patient and participated in the time-out.: Yes Procedure Operation Date: 07/19/20 08:00 Actual Procedures p Laparoscopic Cholecystectomy(Not Applicable) - Billy Arias MD Surgeon Billy Arias MD [place] none Estimated Blood Loss 50 Findings Consistent with Post-Op Diagnosis Drains Ruben Drain
--- NOTE | 2020-07-19 10:11 | Anesthesiology Progress Note ---
Date of Service July 19, 2020 Anesthesia Post Procedure Vital Signs Vital Signs: Temp Pulse Pulse Resp BP BP Pulse Ox 07/19/20 10:00 74 20 115/60 92 07/19/20 09:50 74 20 108/49 L 92 07/19/20 09:46 97.9 F 74 21 121/60 92 07/19/20 06:46 99.0 F 77 18 131/74 93 07/18/20 23:42 98.4 F 07/18/20 22:12 80 24 94 07/18/20 20:29 100.8 F H 83 18 150/78 H 94 07/18/20 19:41 92 07/18/20 16:59 99.0 F 07/18/20 15:06 100.6 F H 92 H 18 128/83 95 07/18/20 12:59 98.4 F 07/18/20 10:13 100.8 F H 98 H 20 157/82 H 95 Pain Intensity Abdomen: Pain Intensity: 8 Transfer of Care Handoff Completed per policy Notes Mental Status: alert / awake / arousable and participated in evaluation Patient Amnestic to Procedure: Yes Nausea / Vomiting: adequately controlled Pain: adequately controlled Airway Patency, RR, SpO2: stable & adequate BP & HR: stable & adequate Hydration State: stable & adequate Anesthetic Complications: no major complications apparent and Pt Satisfied with anesthetic care
[2020-07-19] MEDS ORDERED: MoRPHine SULFATE 4 MG/ML 1 ML CARP\\VIAL IV PRN (10:56)
[2020-07-19] MEDS ORDERED: MoRPHine SULFATE 2 MG/ML CARP IV PRN (10:56)
[2020-07-19] MEDS: carvediloL 6.25 MG TAB PO SCH ×2 (11:03→20:15)
[2020-07-19] MEDS: TAMSULOSIN HCL 0.4 MG CAP PO SCH (11:04)
[2020-07-19] MEDS: CARBIDOPA/LEVODOPA 25/100MG TAB PO SCH ×4 (11:04→20:19)
[2020-07-19] MEDS: PANTOprazole 40 MG TAB PO SCH (11:05)
[2020-07-19] MEDS: rOPINIRole HCL 1 MG TABLET PO SCH ×3 (11:05→20:18)
[2020-07-19] MEDS: CARBIDOPA/LEVODOPA 50/200MG EXT REL TAB PO SCH (11:05)
[2020-07-19] MEDS: GABAPENTIN 300 MG CAP PO SCH ×2 (11:06→20:15)
[2020-07-19] MEDS: amLODIPine BESYLATE 5 MG TAB PO SCH ×2 (11:06→20:18)
[2020-07-19] MEDS: oxyCODONE/ACETAMINOPHEN 5mg/325mg TAB PO PRN ×2 (11:16→20:29)
--- NOTE | 2020-07-19 12:03 | Operative Report (OR) ---
DATE OF OPERATION: 07/19/2020 PREOPERATIVE DIAGNOSES: Acute cholecystitis with gallstones. POSTOPERATIVE DIAGNOSES: Acute cholecystitis with gallstones, with gangrenous cholecystitis. PROCEDURE PERFORMED: Laparoscopic cholecystectomy. SURGEON: Billy Arias MD. WALLPAPER PRINTER HELPER: None. ANESTHESIA: General endotracheal with 0.5% Marcaine with epinephrine local. ESTIMATED BLOOD LOSS: 50 mL. DRAINS: A Ruben drain left in the gallbladder fossa. SPECIMENS: Gallbladder sent for pathologic evaluation. COMPLICATIONS: None. INDICATION FOR PROCEDURE: This is a 75-year-old male admitted through the ED with acute abdominal pain. He had a CT scan showing a gallbladder with a gallstone and some inflammatory changes. An ultrasound also showed inflammatory changes. On exam, he was tender in the right upper quadrant. He was started on antibiotics and was given IV fluids. He will be taken to the OR for laparoscopic cholecystectomy. We went over the risks in detail. DESCRIPTION OF PROCEDURE: The patient was taken to the OR and underwent excellent general endotracheal anesthesia. His abdomen was prepped and draped in normal sterile fashion. Transverse supraumbilical incision was made above the small umbilical hernia. Dissection was taken down to identify the hernia. Hernia sac was entered and a defect was identified. A Talya trocar was then inserted through the defect and secured with Vicryl sutures. Good pneumoperitoneum was then achieved to 15 mmHg pressure. An 11 subxiphoid and two 5 lateral ports were placed in normal fashion. The patient was placed in head up and rolled to the left. Upon entrance into the abdomen, there were omental adhesions to the gallbladder. These were taken down bluntly. The gallbladder itself appeared to be gangrenous and tense. An aspirator was used to aspirate out what appeared to be turbid biliary fluid. There was no purulence. Grasper was used to grasp the fundus and this was retracted superiorly. Another grasper was used to grasp the neck, which was then placed on tension laterally. The peritoneal attachments were taken down. There was a large amount of inflammation and inflammatory tissue. This was taken down with sharp and blunt dissection using electrocautery hook. Once the cystic duct was identified, it was skeletonized. Cystic artery was also identified more medially and it was skeletonized also. A medial and lateral window was created between the gallbladder and gallbladder fossa showing these structures going to the gallbladder. Once this critical view was seen, 3 clips were placed distally on the cystic duct, 1 proximally and the cystic duct was transected; 2 clips were then placed proximally on the cystic artery and 1 distally on the cystic artery and the cystic artery was transected. Electrocautery hook was then used to remove the gallbladder from the gallbladder fossa. There was a little bit of spillage of bile, but no spillage of stones. The gallbladder was removed with an Endobag and sent for pathologic evaluation. Pneumoperitoneum was reestablished. The abdomen was then irrigated out and suctioned. There was about 50 mL of blood loss. The gallbladder fossa was still somewhat raw, and therefore, a piece of Surgicel was placed on the gallbladder fossa. Because of a large inflammatory change, a drain was left and brought out through one of the lateral stab incisions. This was secured with a 3-0 nylon suture. Ports were then removed and pneumoperitoneum was decompressed. The umbilical defect was then closed with interrupted Ethibond and Vicryl sutures. The belly button was then tacked back down with a Vicryl suture. 0.5% Marcaine with epinephrine local was used to create a local field block. Interrupted Vicryl was used to close the skin. Steri-Strips and benzoin were used for this incision. Sterile dressings were applied. The patient tolerated the procedure without any complications, was sent to postop recovery for a period of observation and to be sent to the floor for his care. I attest to the content of the Intraoperative Record and any orders documented therein. Any exception s are noted below.
[2020-07-19] MEDS ORDERED: FUROSEMIDE 40 MG in SYRINGE 0 ML IV SCH (13:30)
--- NOTE | 2020-07-19 16:32 | Billing Data ---
Date of Service July 19, 2020 Coding Level of Care Code 26659 Subseq Hosp Care Lvl 3
[2020-07-19] MEDS: ALBUT/IPRATROP 3MG/0.5MG NEB 3 ML VIAL NEB PRN (16:41)
--- NOTE | 2020-07-19 17:13 | XCELERA ---
[id number]
[2020-07-19] MEDS: guaiFENesin 600 MG TABCR PO SCH (20:15)
[2020-07-20] MEDS: ALBUT/IPRATROP 3MG/0.5MG NEB 3 ML VIAL NEB PRN ×2 (04:23→08:16)
[2020-07-20 06:25] LABS: Eosinophils # (auto) 0.04 K/uL (0-0.5); Eosinophils % (auto) 0.4 %; Hematocrit (blood only) 36.8 % (42-52); Hemoglobin 12.1 g/dL (14.0-18.0); Immature Granulocytes # (auto) 0.01 K/uL (0.00-0.02); Immature Granulocytes % (auto) 0.1 %; Lymphocytes # (auto) 1.39 K/uL (1.2-3.4); Lymphocytes % (auto) 14.9 %; Mean Corpuscular Hemoglobin 29.2 pg (25-34); Mean Corpuscular Hgb Conc 32.9 g/dL (32-36); Mean Corpuscular Volume 88.7 fL (80-100); Monocytes # (auto) 0.49 K/uL (0.11-0.59); Monocytes % (auto) 5.3 %; Neutrophils # (auto) 7.39 K/uL (1.4-6.5); Neutrophils % (auto) 79.3 %; Platelet Count 154 K/uL (130-400); RDW Coefficient of Variation 14.7 % (11.5-14.5); RDW Standard Deviation 47.7 fL (36.4-46.3); Red Blood Count 4.15 M/uL (4.7-6.1); White Blood Count 9.32 K/uL (4.8-10.8)
[2020-07-20 06:56] LABS: BUN Creatinine Ratio 20.4 (10-20); Creatinine Clr Calc Pharmacy 81.4 ml/min; Est GFR (African American) 89.4; Est GFR (Non-African American) 77.1; Potassium 3.5 mmol/L (3.5-5.1)
[2020-07-20] MEDS: PIPERACILLIN/TAZOBACTAM 4.5 GM in DEXTROSE 5% 100 ML IV SCH ×3 (07:58→23:10)
[2020-07-20] MEDS: amLODIPine BESYLATE 5 MG TAB PO SCH ×2 (08:01→20:11)
[2020-07-20] MEDS: PANTOprazole 40 MG TAB PO SCH (08:01)
[2020-07-20] MEDS: CARBIDOPA/LEVODOPA 50/200MG EXT REL TAB PO SCH (08:01)
[2020-07-20] MEDS: CARBIDOPA/LEVODOPA 25/100MG TAB PO SCH ×4 (08:01→20:12)
[2020-07-20] MEDS: ENOXAPARIN INJ 40 MG/0.4 ML SYR SQ SCH (08:01)
[2020-07-20] MEDS: GABAPENTIN 300 MG CAP PO SCH ×2 (08:02→20:11)
[2020-07-20] MEDS: rOPINIRole HCL 1 MG TABLET PO SCH ×3 (08:02→20:12)
[2020-07-20] MEDS: carvediloL 6.25 MG TAB PO SCH ×2 (08:02→20:08)
[2020-07-20] MEDS: guaiFENesin 600 MG TABCR PO SCH ×2 (08:02→20:11)
[2020-07-20] MEDS: TAMSULOSIN HCL 0.4 MG CAP PO SCH (08:02)
--- NOTE | 2020-07-20 11:46 | Hospitalist Progress Note ---
Date of Service July 20, 2020 Assessment & Plan (1) Abdominal pain: Kush Randle is a 75-year-old male with PMH of Parkinson's Disease, CAD, lumbar stenosis with neurogenic claudication, obesity, hypercholesterolemia, hypertension, BPH who arrived with chief complaint of abdominal pain and wick bsequently found to have gangrenous cholecystitis. S/p laparoscopic cholecystectomy on 07/19. Cholecystitis -- s/p cholecystectomy 07/19 - Continue Zosyn q8h - Advance diet as tolerated - Analgesia - Ibuprofen, Percocet, Morphine PRN - Zofran PRN for nausea Acute Hypoxic Respiratory Failure No home O2, requiring 4L NC to maintain sats >90%, laryngeal wheeze and transmitted upper airway sounds on exam - multifactorial: suspect 2/2 mild hypervolemia, chronic congestion/post-nasal drip/cough, +/- aspiration pneumonitis/PNA. - CXR showing cardiomegaly, progression of congestion, bibasilar densities (atelectasis vs pneumonitis) - ST swallow eval - pending; will plan on transitioning abx to Augmentin tomorrow if respiratory status does not improve - Furosemide 40mg IV x1 today to address hypervolemia - Flonase started to address post-nasal drip - IS/flutter valve Parkinson's disease Continue carbidopa-levodopa per home regimen Continue home ropinirole 1 mg p.o. 3 times daily Hypertension/CAD S/p CABG x 3. TTE 07/19: EF 60-65%, normal LV size/function, Grade II Diastolic Dysfunction Continue home carvedilol 6.25 mg p.o. twice daily Continue home amlodipine 5 mg p.o. twice daily Bilateral Lower Extremity Edema Hold home Lasix for now Mild LE edema persists in the lower extremities b/l Lumbar stenosis with neurogenic claudication Continue gabapentin 300 mg p.o. twice daily Hold home tramadol for now - Analgesia as above GERD Protonix 40 mg p.o. daily per hospital formulary BPH Continue home Flomax 0.4 mg p.o. daily DVT prophylaxis: SCDs FENGI: low-fat/heart-healthy diet Dispo: med/surg CODE STATUS: Full Code (2) Parkinson's disease: (3) Coronary artery disease: (4) Lumbar stenosis with neurogenic claudication: (5) Obesity: (6) Hypercholesterolemia: (7) Essential hypertension: (8) BPH (benign prostatic hyperplasia): (9) Bilateral edema of lower extremity: Admission and Anticipated Discharge Date Admission Date: July 18, 2020 Supervising Physician Co-Signing Physician Notes Attending attestation Pt seen and examined in concert with Dr. Urban. In agreement with the documented findings as noted in the resident documentation with any exceptions or additions as noted here. Resting in bed with well controlled abdominal pain following cholecystectomy exacerbated by chronic cough. Cough accompanied by chronic postnasal drip without previous palliative attempts. On examination, S1/S2 nl RRR no MCG. CTAB. Abd TTP mildly at site, BS +ve Cholecystitis - surgery consultation - continue zosyn, tolerating full diet Chronic postnasal drip with laryngeal wheeze - start fluticasone nasal spray, encourage incentive spirometry use Else see resident documentation as noted. Subjective Pain controlled with Percocet 10mg PO x1 overnight. This morning patient reports post-nasal drip with productive cough - chronic, although mildly worse than usual today. Denies supplemental O2 use at home although requiring 4L NC post- operatively. Using incentive spirometer regularly. Reports mild abdominal pain that is worst near incisions and is well-controlled with pain medications. Tolerating full diet w/o N/V, abdominal pain. Denies fever/chills, chest pain, palpitations, SOB. Review of Systems Review of Systems: Pertinent positives and negatives mentioned in HPI. Physical Exam Physical Exam: General: A&Ox3. NAD. Cooperative. Obese. HEENT: Atraumatic, normocephalic. Pulm: Appears to have some difficulty with deep breaths - purses lips for expiration, +transmitted upper airway sounds, end-expiratory wheezes appear to b e transmitted upper airway sounds as well, -rales, -rhonchi. Symmetrical chest rise. No increase work of breathing. No respiratory distress. Cardiac: RRR, -mrg. Radial pulses intact and symmetrical. Abdominal: soft, mildly TTP near incisions, incisions c/d/i, ROSY drain in place - draining serosanguinous fluid, non-distended, BS x 4 Results & Data Results & Data ([facility]) Vital Signs (Past 12 Hours) Vital Signs Temp Pulse Pulse Pulse Resp BP Pulse Ox 07/20/20 08:17 83 20 91 07/20/20 07:43 36.6 C 73 21 131/70 92 07/20/20 04:24 80 24 92 07/20/20 03:38 37.2 C 75 18 161/84 H 93 07/20/20 00:02 36.8 C 83 18 123/72 93 Resident Activity Tracking Resident Involvement: Resident Care Provided Care Provided: Adult Hospital Medicine
--- NOTE | 2020-07-20 11:49 | Surgery Progress Note ---
Date of Service July 20, 2020 Assessment & Plan (1) Acute cholecystitis: POD # 1 s/p laparoscopic cholecystectomy - afebrile, vitals stable - requirng 4L oxygen via nasal cannula, audible wheezing, wet cough without sputum production, diminished lung sounds - MANE drain with serosanguineous output Plan: Recommend CXR to evaluate lungs given audible wheezing and diminished lung sounds. Continue pain management as needed Continue mane drain for now Continue IV antibiotics, can likely discontinue tomorrow if wbc stay stable and afebrile Continue low fat diet Continue medical management for dyspnea and wheezing. Encouraged incentive spirometry Continue Lovenox and SCDs for DVT prophylaxis Dr. Alejandro has seen patient and present during my examination, agrees with above. Admission and Anticipated Discharge Date Admission Date: July 18, 2020 Subjective abdominal pain is minimal and much improved but breathing is not requiring oxygen had breathing treatment again around 9 am feeling short of breath and coughing but unable to bring up sputum tolerating diet urinating without difficulty Physical Exam Constitutional: + obese; no acute distress and not ill appearing Respiratory: + cough and + audible wheezes; no respiratory distress, no labored breathing, no retractions and does not use accessory muscles Auscultation: + diminished lung sounds and + wheezes (bilaterally) Gastrointestinal (Abdomen): Inspection/Auscultation: abdomen normal to inspection, + abdominal surgical incision (covered with dressings) and + abdominal surgical drain present (serosanguineous output); abdomen not distended Percussion/Palpation: + abdomen tender (mild at incision sites) and abdomen soft; no guarding and abdomen not rigid Skin: no rashes, warm and dry + incision (covered with dry dressings) Psychiatric: Orientation: alert and oriented x 3 Results & Data ([facility]) Vital Signs (Past 12 Hours) Vital Signs Temp Pulse Pulse Pulse Resp BP Pulse Ox 07/20/20 08:17 83 20 91 07/20/20 07:43 36.6 C 73 21 131/70 92 07/20/20 04:24 80 24 92 07/20/20 03:38 37.2 C 75 18 161/84 H 93 07/20/20 00:02 36.8 C 83 18 123/72 93 Laboratory Results 07/20/20 07/20/20 07/19/20 Range/Units 06:01 06:01 20:50 WBC 9.32 (4.8-10.8) K/uL RBC 4.15 L (4.7-6.1) M/uL Hgb 12.1 L (14.0-18.0) g/dL Hct 36.8 L (42-52) % MCV 88.7 (80-100) fL MCH 29.2 (25-34) pg MCHC 32.9 (32-36) g/dL RDW Std Deviation 47.7 H (36.4-46.3) fL RDW Coeff of Porsha 14.7 H (11.5-14.5) % Plt Count 154 (130-400) K/uL MPV 10.0 (7.4-10.4) fL Immature Gran % (Auto) 0.1 % Neut % (Auto) 79.3 % Lymph % (Auto) 14.9 % [place] % (Auto) 5.3 % Eos % (Auto) 0.4 % Baso % (Auto) 0.0 % Neut # (Auto) 7.39 H (1.4-6.5) K/uL Lymph # (Auto) 1.39 (1.2-3.4) K/uL [place] # (Auto) 0.49 (0.11-0.59) K/uL Eos # (Auto) 0.04 (0-0.5) K/uL Baso # (Auto) 0.00 (0-0.2) K/uL Immature Gran # (Auto) 0.01 (0.00-0.02) K/uL Sodium 136 (136-145) mmol/L Potassium 3.5 (3.5-5.1) mmol/L Chloride 103 (98-107) mmol/L Carbon Dioxide 30 (21-32) mmol/L Anion Gap 3.0 (3-11) BUN 20 H (7-18) mg/dl Creatinine 0.97 (0.6-1.4) mg/dl Est Cr Clr Drug Dosing 81.4 ml/min Est GFR ( Amer) 89.4 Est GFR (Non-Af Amer) 77.1 BUN/Creatinine Ratio 20.4 H (10-20) Glucose 119 H (70-99) mg/dl POC Glucose 188 H (70-99) mg/dl Calcium 8.0 L (8.5-10.1) mg/dl
--- NOTE | 2020-07-20 12:49 | XRay Report ---
XR chest 1V portable HISTORY: hypoxia COMPARISON: Chest 05/03/2019. FINDINGS: There are low lung volumes. The heart remains enlarged. There are poststernotomy changes. S mall right and trace left pleural effusions with bibasilar densities. There is progressive interstiti al/vascular thickening consistent with mild congestive change. IMPRESSION: 1. Cardiomegaly and mild congestive change. This has progressed in the interval. 2. Small right and trace left pleural effusions with bibasilar densities. This favors atelectasis. A pneumonia could also have a similar appearance. ACT 112: Negative or not required by law. Electronically signed by: August Kelly M.D. 07/20/2020 12:48 PM
[2020-07-20] MEDS ORDERED: POTASSIUM CHLORIDE PWD 20 MEQ PACK PO STA (13:13)
[2020-07-20] MEDS ORDERED: FUROSEMIDE 40 MG in SYRINGE 0 ML IV ONE (13:30)
[2020-07-20] MEDS: oxyCODONE/ACETAMINOPHEN 5mg/325mg TAB PO PRN (16:21)
[2020-07-20] MEDS: FLUTICASONE PROPIONATE NA SPR 16 GM BTL SCH (16:34)
[2020-07-21] MEDS: ALBUT/IPRATROP 3MG/0.5MG NEB 3 ML VIAL NEB PRN (04:20)
[2020-07-21 06:45] LABS: Eosinophils # (auto) 0.06 K/uL (0-0.5); Eosinophils % (auto) 0.6 %; Hematocrit (blood only) 36.9 % (42-52); Hemoglobin 12.2 g/dL (14.0-18.0); Immature Granulocytes # (auto) 0.03 K/uL (0.00-0.02); Immature Granulocytes % (auto) 0.3 %; Lymphocytes % (auto) 10.6 %; Mean Corpuscular Hemoglobin 28.7 pg (25-34); Mean Corpuscular Hgb Conc 33.1 g/dL (32-36); Mean Corpuscular Volume 86.8 fL (80-100); Mean Platelet Volume 9.8 fL (7.4-10.4); Monocytes # (auto) 0.74 K/uL (0.11-0.59); Monocytes % (auto) 7.8 %; Neutrophils % (auto) 80.7 %; Platelet Count 165 K/uL (130-400); RDW Coefficient of Variation 14.4 % (11.5-14.5); RDW Standard Deviation 45.3 fL (36.4-46.3); Red Blood Count 4.25 M/uL (4.7-6.1); White Blood Count 9.43 K/uL (4.8-10.8)
[2020-07-21 07:18] LABS: BUN Creatinine Ratio 18.2 (10-20); Calcium 8.7 mg/dl (8.5-10.1); Creatinine Clr Calc Pharmacy 96.3 ml/min; Est GFR (African American) 101.7; Est GFR (Non-African American) 87.7; Magnesium 2.5 mg/dl (1.8-2.4); Potassium 3.5 mmol/L (3.5-5.1)
[2020-07-21 07:19] LABS: Phosphorus 1.6 mg/dl (2.5-4.9)
--- NOTE | 2020-07-21 08:50 | Surgery Progress Note ---
Date of Service July 21, 2020 Assessment & Plan (1) Acute cholecystitis: POD # 2 s/p laparoscopic cholecystectomy - afebrile, vitals stable - requiring 4L oxygen via nasal cannula, audible wheezing improved, wet cough with some sputume production now - MANE drain with bloody serosanguineous output, 30 mls last shift Plan: Continue pain management as needed PO Miralax one time for constipation can discontinue mane drain From surgery standpoint does not need antibiotics but may be transitioning to oral Augmentin per medicine for possible PNA Continue low fat diet Continue incentive spirometry PT/OT consults Continue Lovenox and SCDs for DVT prophylaxis Continue medical management Doing well from surgery standpoint. Follow-up with surgery office in 2 weeks. Discharge instructions will be provided. Please call with any questions/concerns. Dr. Alejandro has seen patient and present during my examination, agrees with above. Admission and Anticipated Discharge Date Admission Date: July 18, 2020 Subjective sitting up in chair feeling better today still having cough but breathing is better having abdominal pain when coughing or laughing, but controlled no nausea or vomiting no bowel movement since Monday, no issues with constipation at baseline Physical Exam Constitutional: WD/WN, vitals as above no acute distress and not ill appearing Respiratory: normal respiratory effort and + cough; no respiratory distress, no labored breathing, no retractions, does not use accessory muscles and no audible wheezes Gastrointestinal (Abdomen): Inspection/Auscultation: abdomen normal to inspection, + abdominal surgical incision (covered with dressings) and + abdominal surgical drain present (bloody serosanguineous); abdomen not distended Percussion/Palpation: + abdomen tender (at incisions and drain site) and abdomen soft; no guarding and abdomen not rigid Skin: no rashes, warm and dry Psychiatric: Orientation: alert and oriented x 3 Results & Data ([facility]) Vital Signs (Past 12 Hours) Vital Signs Temp Pulse Resp BP Pulse Ox 07/21/20 07:51 36.8 C 74 22 148/68 H 93 07/21/20 04:21 74 18 93 07/20/20 23:16 37 C 74 19 134/76 94 Laboratory Results 07/21/20 07/21/20 07/20/20 Range/Units 06:18 06:18 15:35 WBC 9.43 (4.8-10.8) K/uL RBC 4.25 L (4.7-6.1) M/uL Hgb 12.2 L (14.0-18.0) g/dL Hct 36.9 L (42-52) % MCV 86.8 (80-100) fL MCH 28.7 (25-34) pg MCHC 33.1 (32-36) g/dL RDW Std Deviation 45.3 (36.4-46.3) fL RDW Coeff of Porsha 14.4 (11.5-14.5) % Plt Count 165 (130-400) K/uL MPV 9.8 (7.4-10.4) fL Immature Gran % (Auto) 0.3 % Neut % (Auto) 80.7 % Lymph % (Auto) 10.6 % [place] % (Auto) 7.8 % Eos % (Auto) 0.6 % Baso % (Auto) 0.0 % Neut # (Auto) 7.60 H (1.4-6.5) K/uL Lymph # (Auto) 1.00 L (1.2-3.4) K/uL [place] # (Auto) 0.74 H (0.11-0.59) K/uL Eos # (Auto) 0.06 (0-0.5) K/uL Baso # (Auto) 0.00 (0-0.2) K/uL Immature Gran # (Auto) 0.03 H (0.00-0.02) K/uL Sodium 136 (136-145) mmol/L Potassium 3.5 (3.5-5.1) mmol/L Chloride 101 (98-107) mmol/L Carbon Dioxide 30 (21-32) mmol/L Anion Gap 4.0 (3-11) BUN 15 (7-18) mg/dl Creatinine 0.82 (0.6-1.4) mg/dl Est Cr Clr Drug Dosing 96.3 ml/min Est GFR ( Amer) 101.7 Est GFR (Non-Af Amer) 87.7 BUN/Creatinine Ratio 18.2 (10-20) Glucose 130 H (70-99) mg/dl Calcium 8.7 (8.5-10.1) mg/dl Phosphorus 1.6 L (2.5-4.9) mg/dl Magnesium 2.5 H (1.8-2.4) mg/dl NT-Pro-B Natriuret Pep (0-900) pg/ml Nasal Screen MRSA (PCR) Negative (Negative) 07/20/20 Range/Units 06:01 WBC (4.8-10.8) K/uL RBC (4.7-6.1) M/uL Hgb (14.0-18.0) g/dL Hct (42-52) % MCV (80-100) fL MCH (25-34) pg MCHC (32-36) g/dL RDW Std Deviation (36.4-46.3) fL RDW Coeff of Porsha (11.5-14.5) % Plt Count (130-400) K/uL MPV (7.4-10.4) fL Immature Gran % (Auto) % Neut % (Auto) % Lymph % (Auto) % [place] % (Auto) % Eos % (Auto) % Baso % (Auto) % Neut # (Auto) (1.4-6.5) K/uL Lymph # (Auto) (1.2-3.4) K/uL [place] # (Auto) (0.11-0.59) K/uL Eos # (Auto) (0-0.5) K/uL Baso # (Auto) (0-0.2) K/uL Immature Gran # (Auto) (0.00-0.02) K/uL Sodium (136-145) mmol/L Potassium (3.5-5.1) mmol/L Chloride (98-107) mmol/L Carbon Dioxide (21-32) mmol/L Anion Gap (3-11) BUN (7-18) mg/dl Creatinine (0.6-1.4) mg/dl Est Cr Clr Drug Dosing ml/min Est GFR ( Amer) Est GFR (Non-Af Amer) BUN/Creatinine Ratio (10-20) Glucose (70-99) mg/dl Calcium (8.5-10.1) mg/dl Phosphorus (2.5-4.9) mg/dl Magnesium (1.8-2.4) mg/dl NT-Pro-B Natriuret Pep 959 H (0-900) pg/ml Nasal Screen MRSA (PCR) (Negative)
[2020-07-21] MEDS ORDERED: POLYETHYLENE (MIRALAX) 17 GM PACK PO STA (08:53)
[2020-07-21] MEDS: PIPERACILLIN/TAZOBACTAM 4.5 GM in DEXTROSE 5% 100 ML IV SCH (08:53)
[2020-07-21] MEDS: GABAPENTIN 300 MG CAP PO SCH ×2 (08:54→21:31)
[2020-07-21] MEDS: TAMSULOSIN HCL 0.4 MG CAP PO SCH (08:54)
[2020-07-21] MEDS: CARBIDOPA/LEVODOPA 50/200MG EXT REL TAB PO SCH (08:54)
[2020-07-21] MEDS: CARBIDOPA/LEVODOPA 25/100MG TAB PO SCH ×4 (08:54→21:35)
[2020-07-21] MEDS: rOPINIRole HCL 1 MG TABLET PO SCH ×3 (08:54→21:31)
[2020-07-21] MEDS: PANTOprazole 40 MG TAB PO SCH (08:54)
[2020-07-21] MEDS: guaiFENesin 600 MG TABCR PO SCH ×2 (08:54→21:32)
[2020-07-21] MEDS: carvediloL 6.25 MG TAB PO SCH ×2 (08:55→21:33)
[2020-07-21] MEDS: amLODIPine BESYLATE 5 MG TAB PO SCH ×2 (08:55→21:33)
[2020-07-21] MEDS: ENOXAPARIN INJ 40 MG/0.4 ML SYR SQ SCH (08:55)
[2020-07-21] MEDS: FLUTICASONE PROPIONATE NA SPR 16 GM BTL SCH (08:55)
[2020-07-21] MEDS: POT PHOSPHATE MONOBASIC W/ SOD TAB PO SCH ×4 (09:00→21:29)
--- NOTE | 2020-07-21 11:52 | Fluoroscopy Report ---
VIDEO SWALLOW STUDY CLINICAL HISTORY: Aspiration. COMPARISON STUDY: No priors. Fluoroscopy time: 1.7 minutes. FINDINGS: Fluoroscopic guidance is provided to the Department of Speech Pathology in performing a vid eo swallow study. The patient consumed barium-impregnated pudding, cracker with paste, nectar thick l iquid, and thin barium while the swallowing mechanism was observed in real-time. No penetration or as piration was seen with any of the sampled textures. Esophageal dysmotility is observed. Midline aguirre otomy wires are noted. IMPRESSION: 1. No penetration or aspiration was seen with any of the sampled textures. 2. Esophageal dysmotility. 3. See dedicated speech pathology report for detailed findings and recommendations. Dictated: 07/21/2020 11:05 AM Transcribed: 07/21/2020 11:49 AM Nissa [id number] [email or web address]_Arian Electronically signed by: Rios Rasmussen M.D. 07/21/2020 11:51 AM
--- NOTE | 2020-07-21 14:10 | Hospitalist Progress Note ---
Date of Service July 21, 2020 Assessment & Plan (1) Abdominal pain: Kush Randle is a 75-year-old male with PMH of Parkinson's Disease, CAD, lumbar stenosis with neurogenic claudication, obesity, hypercholesterolemia, hypertension, BPH who arrived with chief complaint of abdominal pain and wick bsequently found to have gangrenous cholecystitis. S/p laparoscopic cholecystectomy on 07/19. Acute Hypoxic Respiratory Failure No home O2, requiring 4L NC to maintain sats >90%, laryngeal wheeze and transmitted upper airway sounds on exam - multifactorial: suspect 2/2 aspiration pneumonitis vs PNA as well as chronic congestion/post-nasal drip/cough. - [facility] swallow eval without signs of aspiration although CXR does show possible aspiration pneumonitis/PNA - started slippery diet per [facility] [employer] [facility] recs - Zosyn stopped today - transition to Augmentin 875/125mg PO BID for total of 5 days abx (today is day 3) to cover for aspiration PNA - continue Flonase - IS/flutter valve - may need 2-step home O2 qualifying test before discharge (if remains hypoxic on RA) Cholecystitis -- s/p cholecystectomy 07/19 - Zosyn stopped this morning, continue Augmentin as mentioned above - Continue with low-fat diet - Analgesia - Ibuprofen, Percocet, Morphine PRN - Zofran PRN for nausea - f/u with surgery after discharge Parkinson's disease - Continue carbidopa-levodopa per home regimen - Continue home ropinirole 1 mg p.o. 3 times daily Hypertension/CAD S/p CABG x 3. TTE 07/19: EF 60-65%, normal LV size/function, Grade II Diastolic Dysfunction - Continue home carvedilol 6.25 mg p.o. twice daily - Continue home amlodipine 5 mg p.o. twice daily Bilateral Lower Extremity Edema Hold home Lasix for now Mild LE edema persists in the lower extremities b/l Lumbar stenosis with neurogenic claudication Continue gabapentin 300 mg PO BID Hold home tramadol for now - Analgesia as above GERD Protonix 40 mg PO daily per hospital formulary BPH Continue home Flomax 0.4 mg PO daily DVT prophylaxis: SCDs FENGI: low-fat/heart-healthy diet Dispo: med/surg CODE STATUS: Full Code (2) Parkinson's disease: (3) Coronary artery disease: (4) Lumbar stenosis with neurogenic claudication: (5) Obesity: (6) Hypercholesterolemia: (7) Essential hypertension: (8) BPH (benign prostatic hyperplasia): (9) Bilateral edema of lower extremity: Admission and Anticipated Discharge Date Admission Date: July 18, 2020 Supervising Physician Co-Signing Physician Notes Attending attestation Pt seen and examined in concert with Dr. Urban. In agreement with the documented findings as noted in the resident documentation with any exceptions or additions as noted here. Resting in bed with well controlled abdominal pain following cholecystectomy exacerbated by chronic cough. Cough accompanied by chronic postnasal drip without previous palliative attempts. On examination, S1/S2 nl RRR no MCG. CTAB. Abd TTP mildly at site, BS +ve Acute hypoxic respiratory failure - likely aspiration vs. laryngeal dysfunction, less likely HFpEF based on lack of response to furosemide previously.[facility] [employer] [facility] evaluation as noted. Continue abx therapy to complete course asbelow. Taper O2 as tolerated, consider 2 step vs. SNF w/ [facility] on rehab recommendations= Cholecystitis - surgery consultation - continue zosyn, tolerating full diet. Transition to PO regimen to complete course on discharge. Chronic postnasal drip with laryngeal wheeze - fluticasone nasal spray, encourage incentive spirometry use, encourage ambulation Else see resident documentation as noted. Subjective Pain controlled without pain meds overnight. Saw [facility] [employer] [facility] and had video swallow that showed no signs of aspiration. Patient was eating lunch without NC in place and was satting 93-95%. Tolerating full diet w/o N/V, abdominal pain. Denies fever/chills, chest pain, palpitations, SOB. Review of Systems Review of Systems: Pertinent positives and negatives mentioned in HPI. Physical Exam Physical Exam: General: A&Ox3. NAD. Cooperative. Obese. HEENT: Atraumatic, normocephalic. Pulm: Purses lips for deep expiration, +transmitted upper airway sounds, end- expiratory wheezes appear to be transmitted upper airway sounds as well, -rales, -rhonchi. Symmetrical chest rise. No increase work of breathing. No respiratory distress. Cardiac: RRR, -mrg. Radial pulses intact and symmetrical. Abdominal: soft, mildly TTP near incisions, incisions c/d/i, non-distended, BS x 4 Results & Data Results & Data ([facility]) Vital Signs (Past 12 Hours) Vital Signs Temp Pulse Resp BP Pulse Ox 07/21/20 07:51 36.8 C 74 22 148/68 H 93 07/21/20 04:21 74 18 93 Resident Activity Tracking Resident Involvement: Resident Care Provided Care Provided: Adult Hospital Medicine
[2020-07-21] MEDS: AMOXICILLIN/CLAVULANATE 875 MG TAB PO SCH (17:23)
[2020-07-22] MEDS: ACETAMINOPHEN 325 MG TAB PO PRN ×2 (07:37→15:44)
[2020-07-22] MEDS: AMOXICILLIN/CLAVULANATE 875 MG TAB PO SCH ×2 (07:38→16:36)
--- NOTE | 2020-07-22 08:20 | Hospitalist Progress Note ---
Date of Service July 22, 2020 Assessment & Plan (1) Abdominal pain: Kush Randle is a 75-year-old male with PMH of Parkinson's Disease, CAD, lumbar stenosis with neurogenic claudication, obesity, hypercholesterolemia, hypertension, BPH who arrived with chief complaint of abdominal pain and wick bsequently found to have gangrenous cholecystitis. S/p laparoscopic cholecystectomy on 07/19. Acute Hypoxic Respiratory Failure, Resolving No home O2, requiring 2L NC to maintain sats >90%, laryngeal wheeze and transmitted upper airway sounds on exam - multifactorial: suspect 2/2 aspiration pneumonitis vs PNA as well as chronic congestion/post-nasal drip/cough. Do not suspect 2/2 fluid overload as there is no LE edema today and patient did not improve after Lasix IV on 07/20 and 07/21. - COOLER SERVICER swallow eval without signs of aspiration although CXR does show possible aspiration pneumonitis/PNA - continue slippery diet per COOLER SERVICER recs - continue Augmentin 875/125mg PO BID for total of 5 days abx (today is day 4) to cover for aspiration PNA - continue Flonase - IS/flutter valve - continue to wean supplemental O2 as tolerated Cholecystitis -- s/p cholecystectomy 07/19 - Zosyn stopped this morning, continue Augmentin as mentioned above - Continue with low-fat diet - Analgesia - Ibuprofen, Percocet, Morphine PRN - Zofran PRN for nausea - f/u with surgery after discharge Ambulatory Dysfunction - unable to independently ambulate after surgery, acutely worse than baseline ambulatory function before surgery - PT/OT consulted - recommend inpatient rehab --> pending authorization Parkinson's disease - Continue carbidopa-levodopa per home regimen - Continue home ropinirole 1 mg p.o. 3 times daily Hypertension/CAD S/p CABG x 3. TTE 07/19: EF 60-65%, normal LV size/function, Grade II Diastolic Dysfunction - Continue home carvedilol 6.25 mg p.o. twice daily - Continue home amlodipine 5 mg p.o. twice daily Bilateral Lower Extremity Edema, Resolved Hold home Lasix for now Lumbar stenosis with neurogenic claudication Continue gabapentin 300 mg PO BID Hold home tramadol for now - Analgesia as above GERD Protonix 40 mg PO daily per hospital formulary BPH Continue home Flomax 0.4 mg PO daily DVT prophylaxis: SCDs FENGI: low-fat/heart-healthy diet Dispo: med/surg, pending authorization for inpatient rehab CODE STATUS: Full Code (2) Parkinson's disease: (3) Coronary artery disease: (4) Lumbar stenosis with neurogenic claudication: (5) Obesity: (6) Hypercholesterolemia: (7) Essential hypertension: (8) BPH (benign prostatic hyperplasia): (9) Bilateral edema of lower extremity: Admission and Anticipated Discharge Date Admission Date: July 18, 2020 Supervising Physician Co-Signing Physician Notes Attending attestation Pt seen and examined in concert with Dr. Urban. In agreement with the documented findings as noted in the resident documentation with any exceptions or additions as noted here. Improved abdominal pain, BM this AM without complaint or difficulty. Working with PT and looking forward to rehab to increase strength. Chronic cough moderately improved on INCS. On examination, S1/S2 nl RRR no MCG. CTAB. Abd TTP mildly at site, nl healing skin apparent, BS +ve Acute hypoxic respiratory failure - likely aspiration vs. laryngeal dysfunction, less likely HFpEF based on lack of response to furosemide previously.COOLER SERVICER evaluation completed. Complete course of abx therapy. Transition to therapy, O2 per protocol. Cholecystitis - surgery consultation - Transition to PO regimen to complete course on discharge. Chronic postnasal drip with laryngeal wheeze - fluticasone nasal spray, encourage incentive spirometry use, encourage ambulation Else see resident documentation as noted. Subjective Pain controlled without pain meds overnight. NC 2L overnight - satted >93% on these settings. Continues to report chronic cough - slightly improved today. He is using IS/flutter valve regularly. Tolerating full diet w/o N/V, abdominal pain. Denies fever/chills, chest pain, palpitations, SOB. Review of Systems Review of Systems: Pertinent positives and negatives mentioned in HPI. Physical Exam Physical Exam: General: A&Ox3. NAD. Cooperative. Obese. HEENT: Atraumatic, normocephalic. Pulm: Purses lips for deep expiration, +transmitted upper airway sounds, end- expiratory wheezes appear to be transmitted upper airway sounds as well, -rales, -rhonchi. Symmetrical chest rise. No increase work of breathing. No respiratory distress - stable exam Cardiac: RRR, -mrg. Radial pulses intact and symmetrical. Abdominal: soft, mildly TTP near incisions, incisions c/d/i, non-distended, NA BS x 4 Results & Data Results & Data ([facility]) Vital Signs (Past 12 Hours) Vital Signs Temp Pulse Resp BP Pulse Ox 07/22/20 07:24 36.9 C 68 28 H 168/78 H 94 07/21/20 21:57 36.9 C 73 20 146/72 H 94 07/21/20 21:26 74 167/91 H Resident Activity Tracking Resident Involvement: Resident Care Provided Care Provided: Adult Hospital Medicine
[2020-07-22 09:11] LABS: Basophils # (auto) 0.01 K/uL (0-0.2); Basophils % (auto) 0.1 %; Eosinophils # (auto) 0.06 K/uL (0-0.5); Eosinophils % (auto) 0.8 %; Hematocrit (blood only) 37.1 % (42-52); Hemoglobin 12.6 g/dL (14.0-18.0); Immature Granulocytes # (auto) 0.05 K/uL (0.00-0.02); Immature Granulocytes % (auto) 0.6 %; Mean Corpuscular Hemoglobin 29.4 pg (25-34); Mean Corpuscular Volume 86.7 fL (80-100); Mean Platelet Volume 9.9 fL (7.4-10.4); Monocytes # (auto) 0.71 K/uL (0.11-0.59); Monocytes % (auto) 9.2 %; Neutrophils # (auto) 5.88 K/uL (1.4-6.5); Neutrophils % (auto) 76.3 %; Platelet Count 208 K/uL (130-400); RDW Coefficient of Variation 14.6 % (11.5-14.5); RDW Standard Deviation 46.1 fL (36.4-46.3); Red Blood Count 4.28 M/uL (4.7-6.1); White Blood Count 7.71 K/uL (4.8-10.8)
[2020-07-22] MEDS: CARBIDOPA/LEVODOPA 25/100MG TAB PO SCH ×4 (09:38→19:52)
[2020-07-22] MEDS: GABAPENTIN 300 MG CAP PO SCH ×2 (09:38→19:51)
[2020-07-22] MEDS: guaiFENesin 600 MG TABCR PO SCH ×2 (09:39→19:51)
[2020-07-22] MEDS: rOPINIRole HCL 1 MG TABLET PO SCH ×3 (09:39→19:52)
[2020-07-22] MEDS: TAMSULOSIN HCL 0.4 MG CAP PO SCH (09:39)
[2020-07-22] MEDS: CARBIDOPA/LEVODOPA 50/200MG EXT REL TAB PO SCH (09:39)
[2020-07-22] MEDS: PANTOprazole 40 MG TAB PO SCH (09:39)
[2020-07-22] MEDS: carvediloL 6.25 MG TAB PO SCH ×2 (09:39→19:53)
[2020-07-22] MEDS: amLODIPine BESYLATE 5 MG TAB PO SCH ×2 (09:39→19:51)
[2020-07-22] MEDS: FLUTICASONE PROPIONATE NA SPR 16 GM BTL SCH (09:40)
[2020-07-22] MEDS: ENOXAPARIN INJ 40 MG/0.4 ML SYR SQ SCH (09:40)
[2020-07-22 10:19] LABS: BUN Creatinine Ratio 16.9 (10-20); Calcium 8.6 mg/dl (8.5-10.1); Creatinine Clr Calc Pharmacy 138.5 ml/min; Est GFR (African American) 118.1; Est GFR (Non-African American) 101.9; Magnesium 2.5 mg/dl (1.8-2.4); Phosphorus 2.7 mg/dl (2.5-4.9); Potassium 3.6 mmol/L (3.5-5.1)
[2020-07-22] MEDS: POTASSIUM CHLORIDE CRTAB 20 MEQ TABCR PO SCH (12:20)
[2020-07-23] MEDS: ACETAMINOPHEN 325 MG TAB PO PRN (04:23)
[2020-07-23 06:11] LABS: Basophils # (auto) 0.01 K/uL (0-0.2); Basophils % (auto) 0.1 %; Eosinophils # (auto) 0.08 K/uL (0-0.5); Eosinophils % (auto) 1.1 %; Hematocrit (blood only) 35.7 % (42-52); Immature Granulocytes % (auto) 1.3 %; Lymphocytes # (auto) 1.05 K/uL (1.2-3.4); Lymphocytes % (auto) 13.9 %; Mean Corpuscular Hemoglobin 29.1 pg (25-34); Mean Corpuscular Hgb Conc 33.6 g/dL (32-36); Mean Corpuscular Volume 86.4 fL (80-100); Mean Platelet Volume 9.6 fL (7.4-10.4); Monocytes % (auto) 10.6 %; Neutrophils # (auto) 5.53 K/uL (1.4-6.5); Platelet Count 237 K/uL (130-400); RDW Coefficient of Variation 14.9 % (11.5-14.5); RDW Standard Deviation 47.8 fL (36.4-46.3); Red Blood Count 4.13 M/uL (4.7-6.1); White Blood Count 7.57 K/uL (4.8-10.8)
[2020-07-23 06:50] LABS: Calcium 8.8 mg/dl (8.5-10.1); Creatinine Clr Calc Pharmacy 143.6 ml/min; Est GFR (African American) 119.8; Est GFR (Non-African American) 103.4; Magnesium 2.4 mg/dl (1.8-2.4); Potassium 3.8 mmol/L (3.5-5.1)
[2020-07-23 06:51] LABS: Phosphorus 3.1 mg/dl (2.5-4.9)
[2020-07-23] MEDS: TAMSULOSIN HCL 0.4 MG CAP PO SCH (09:04)
[2020-07-23] MEDS: GABAPENTIN 300 MG CAP PO SCH (09:04)
[2020-07-23] MEDS: AMOXICILLIN/CLAVULANATE 875 MG TAB PO SCH (09:04)
[2020-07-23] MEDS: POTASSIUM CHLORIDE CRTAB 20 MEQ TABCR PO SCH (09:04)
[2020-07-23] MEDS: amLODIPine BESYLATE 5 MG TAB PO SCH (09:04)
[2020-07-23] MEDS: PANTOprazole 40 MG TAB PO SCH (09:04)
[2020-07-23] MEDS: CARBIDOPA/LEVODOPA 25/100MG TAB PO SCH ×2 (09:05→12:34)
[2020-07-23] MEDS: ENOXAPARIN INJ 40 MG/0.4 ML SYR SQ SCH ×2 (09:05→12:36)
[2020-07-23] MEDS: FLUTICASONE PROPIONATE NA SPR 16 GM BTL SCH (09:05)
[2020-07-23] MEDS: guaiFENesin 600 MG TABCR PO SCH (09:05)
[2020-07-23] MEDS: carvediloL 6.25 MG TAB PO SCH (09:05)
[2020-07-23] MEDS: CARBIDOPA/LEVODOPA 50/200MG EXT REL TAB PO SCH (09:05)
[2020-07-23] MEDS: rOPINIRole HCL 1 MG TABLET PO SCH (09:05)
[2020-07-23] MEDS: oxyCODONE/ACETAMINOPHEN 5mg/325mg TAB PO PRN (09:08)
--- NOTE | 2020-07-23 09:57 | Discharge Summary ---
Date of Service July 23, 2020 Admission HPI Per Admitting Provider Kush Randle is a 75-year-old male with PMH of Parkinson's Disease, CAD, lumbar stenosis with neurogenic claudication, obesity, hypercholesterolemia, hypertension, BPH who arrived at [facility] with complaints of belly pain starting yesterday at 7:30 PM. The patient's states that they initially tried to let the abdominal pain subside on its own, but it continued to worsen until 1 AM when the patient asked his to bring him to the emergency department. Patient states that pain is located at his upper abdomen, they did not notice that it was related to any specific type of food. This is a new occurrence for him and has never happened before. Patient's states that he had initially mentioned that he felt like he might throw up but never actually had nausea or vomiting. They both deny fever. They deny bowel changes but do mention that the patient tends to be constipated in the setting of his Parkinson's disease, they have not noticed any unexplained weight loss if anything he has had slight weight gain. In the ED patient received a dose of fentanyl 100 mcg x 1, Dilaudid 0.5 mg x 1, Zofran 4 mg x 1 and 1 L bolus of normal saline. CBC and CMP were largely nonconcerning, patient had negative troponin, EKG showed normal sinus rhythm and right bundle branch block. Abdominal CT showed cholelithiasis with gallbladder distention and equivocal wall thickening possibly representing early acute cholecystitis gallbladder ultrasound showed distended gallbladder with layering sludge and no definite cholelithiasis, findings were equivocal for acute cholecystitis. Radiologist documented that findings could be correlated with HIDA scan. Admission Exam Per Admitting Provider Constitutional: Obese 75-year-old male who is laying in bed in some mild distress due to pain. Mainly mumbles answers to questions but does answer appropriately when prompted. Eyes: Pupils equal round and reactive to light, extraocular movements intact. ENMT: External ear and nose normal, oropharynx normal. Neck: Visual inspection normal. Trachea midline. Respiratory: Clear to auscultation bilaterally. No wheezes, rhonchi, rales. Cardiovascular: Regular rate and rhythm. No murmurs, gallops, rubs. No edema. Gastrointestinal (Abdomen): Bowel sounds positive in all 4 quadrants. Nondistended, soft. Tender to palpation at right upper quadrant. Mas sign positive. Musculoskeletal: No cyanosis or clubbing. Moves all extremities. Skin: No rashes. Warm and dry. Neurologic: Cranial nerves II to XII grossly intact. Psychiatric: Alert and oriented x3, mood congruent with affect. Lymphatic: No cervical or axillary lymphadenopathy Principal Diagnosis Acute Cholecystitis Discharge Exam General: A&Ox3. NAD. Cooperative. Obese. HEENT: Atraumatic, normocephalic. Pulm: Purses lips for deep expiration, +transmitted upper airway sounds, end- expiratory wheezes appear to be transmitted upper airway sounds as well, -rales, -rhonchi. Symmetrical chest rise. No increase work of breathing. No respiratory distress - stable exam Cardiac: RRR, -mrg. Radial pulses intact and symmetrical. Abdominal: soft, mildly TTP near umbilical incision with mildly erythematous/indurated rash, no discharge, incisions c/d/i, non-distended, NA BS x 4 Discharge Data Allergies Allergy/AdvReac Type Severity Reaction Status Date / Time No Known Drug Allergies Allergy Unknown Verified 07/18/20 03:04 Consultations 07/18/20 06:09 ED Decision to Admit Stat 07/18/20 10:06 Consult General Surgery Routine 07/20/20 23:41 Consult Patient Rep / Service Excellence [Consult Patient Services] Routine Procedures Performed Operation Date: 07/19/20 08:00 Actual Procedures p Laparoscopic Cholecystectomy(Not Applicable) - Billy Arias MD Ordered Studies 07/18/20 02:58 CT angio abdomen pelvis w con Urgent 07/18/20 03:00 CT angio chest dissec wo/w con Urgent 07/18/20 04:28 US gallbladder Urgent 07/21/20 10:30 Fluoro video [FL video swallow] Routine Hospital Course (1) Abdominal pain: Kush Randle is a 75-year-old male with PMH of Parkinson's Disease, CAD, lumbar stenosis with neurogenic claudication, obesity, hypercholesterolemia, hypertension, BPH who arrived with chief complaint of abdominal pain and subsequently found to have gangrenous cholecystitis. S/p laparoscopic cholecystectomy on 07/19. Cholecystitis -- s/p cholecystectomy 07/19 - Zosyn x3 days, stopped on 07/21, continued with Augmentin until today, stopped at discharge - Continue with low-fat diet - Analgesia - Ibuprofen, Percocet, Morphine PRN - Zofran PRN for nausea - f/u with surgery after discharge Periumbilical Cellulitis Erythematous, mildly indurated, mildly tender rash inferior to umbilical incision. POD 3 from lap shai. Suspect post-op cellulitis. Has occurred despite Zosyn/Augmentin for 5 days. - Doxycycline 100mg PO BID x7 days, first dose before discharge Acute Hypoxic Respiratory Failure, Resolved No home O2, initially required 4L NC to maintain sats >90%, satting well on room air since yesterday, laryngeal wheeze and transmitted upper airway sounds on exam - multifactorial: suspect 2/2 aspiration pneumonitis vs PNA as well as chronic congestion/post-nasal drip/cough. Do not suspect 2/2 fluid overload as there is no LE edema and patient did not improve after Lasix IV on 07/20 and 07/21. - DEPOSITING MACHINE OPERATOR swallow eval without signs of aspiration although CXR does show possible aspiration pneumonitis/PNA - continue slippery diet per DEPOSITING MACHINE OPERATOR recs - stop Augmentin on discharge (today is day 08/05) to cover for aspiration PNA - continue Flonase - IS/flutter valve - continue to wean supplemental O2 as tolerated Ambulatory Dysfunction - unable to independently ambulate after surgery, acutely worse than baseline ambulatory function before surgery - PT/OT consulted - recommend inpatient rehab --> [facility] and transferring there today Parkinson's disease - Continue carbidopa-levodopa per home regimen - Continue home ropinirole 1 mg p.o. 3 times daily Hypertension/CAD S/p CABG x 3. TTE 07/19: EF 60-65%, normal LV size/function, Grade II Diastolic Dysfunction - Continue home carvedilol 6.25 mg p.o. twice daily - Continue home amlodipine 5 mg p.o. twice daily Bilateral Lower Extremity Edema, Resolved continue home Lasix PRN only for LE edema - f/u with PCP about discontinuing this medication, if no further LE edema Lumbar stenosis with neurogenic claudication Continue gabapentin 300 mg PO BID Hold home tramadol for now - Analgesia as above GERD Protonix 40 mg PO daily per hospital formulary BPH Continue home Flomax 0.4 mg PO daily DVT prophylaxis: SCDs FENGI: low-fat/heart-healthy diet Dispo: med/surg, transfer to [facility] today CODE STATUS: Full Code (2) Parkinson's disease: (3) Coronary artery disease: (4) Lumbar stenosis with neurogenic claudication: (5) Obesity: (6) Hypercholesterolemia: (7) Essential hypertension: (8) BPH (benign prostatic hyperplasia): (9) Bilateral edema of lower extremity: Total Time Total Time Spent Total Time Spent (In Minutes): 40 minutes Total Time Includes: Examination of the Patient, Discharge Planning, Medication Reconciliation and Communication With Other Providers Discharge Plan Discharge Items Patient Disposition: Transfer Inpatient Rehab Fac Reason For Visit: ABDOMINAL PAIN Discharge Diagnosis: Acute cholecystitis, s/p laparoscopic cholecystectomy Activity: Per Instructions section Non-emergency contact: Primary Care Provider and Surgeon Call non-emergency contact if: you have any medication questions, your pain is not controlled, you have a fever, your wound has increased redness, your wound has increased drainage and your wound pain has increased Follow-up/Referrals: Lesley Montague MD [Primary Care Provider] - Diet: Heart Healthy Addtl Attending Provider Instructions: Kush Randle is a 75-year-old male with PMH of Parkinson's Disease, CAD, lumbar stenosis with neurogenic claudication, obesity, hypercholesterolemia, hypertension, BPH who arrived with chief complaint of abdominal pain and subsequently found to have gangrenous cholecystitis. S/p laparoscopic cholecystectomy on 07/19. Acute Hypoxic Respiratory Failure, Resolved No home O2, initially required 4L NC to maintain sats >90%, satting well on room air since yesterday, laryngeal wheeze and transmitted upper airway sounds on exam - multifactorial: suspect 2/2 aspiration pneumonitis vs PNA as well as chronic congestion/post-nasal drip/cough. Do not suspect 2/2 fluid overload as there is no LE edema and patient did not improve after Lasix IV on 07/20 and 07/21. - DEPOSITING MACHINE OPERATOR swallow eval without signs of aspiration although CXR does show possible aspiration pneumonitis/PNA - continue slippery diet per DEPOSITING MACHINE OPERATOR recs - stop Augmentin on discharge (today is day 08/05) to cover for aspiration PNA - continue Flonase - IS/flutter valve - continue to wean supplemental O2 as tolerated Cholecystitis -- s/p cholecystectomy 07/19 - Zosyn x3 days, stopped on 07/21, continued with Augmentin until today, stopped at discharge - Continue with low-fat diet - Analgesia - Ibuprofen, Percocet, Morphine PRN - Zofran PRN for nausea - f/u with surgery after discharge Periumbilical Cellulitis Erythematous, mildly indurated, mildly tender rash inferior to umbilical incision. POD 3 from lap hsai. Suspect post-op cellulitis. Has occurred despite Zosyn/Augmentin for 5 days. - Doxycycline 100mg PO BID x7 days, first dose before discharge Ambulatory Dysfunction - unable to independently ambulate after surgery, acutely worse than baseline ambulatory function before surgery - PT/OT consulted - recommend inpatient rehab --> accepted at [facility] and transferring there today Parkinson's disease - Continue carbidopa-levodopa per home regimen - Continue home ropinirole 1 mg p.o. 3 times daily Hypertension/CAD S/p CABG x 3. TTE 07/19: EF 60-65%, normal LV size/function, Grade II Diastolic Dysfunction - Continue home carvedilol 6.25 mg p.o. twice daily - Continue home amlodipine 5 mg p.o. twice daily Bilateral Lower Extremity Edema, Resolved continue home Lasix PRN only for LE edema - f/u with PCP about discontinuing this medication, if no further LE edema Lumbar stenosis with neurogenic claudication Continue gabapentin 300 mg PO BID Hold home tramadol for now - Analgesia as above GERD Protonix 40 mg PO daily per hospital formulary BPH Continue home Flomax 0.4 mg PO daily DVT prophylaxis: SCDs FENGI: low-fat/heart-healthy diet, slippery consistency CODE STATUS: Full Code Addtl Yeast Washer Provider Instructions: Post-Surgical ~Discharge Instructions Activity Recommendations: - lifting limitation: (20 pounds for 4 weeks), - exercise/sex/sports limit: (nonstrenuous for 2 weeks), - driving or machine use limit: (none for 1 week or until pain free, - Shower/bathe limit: (may shower) Diet: - Resume previous diet SPECIAL CARE INSTRUCTIONS: - May shower. Let water run over area and pat dry. Do NOT submerge incisions underwater for 2 weeks (no bathing, swimming, hot tubs) - Leave steri strips on for one week and then remove. - Call the surgeon's office with any questions or concerns - - (ex. temperature higher than 101 degrees F, excessive bleeding or pain). MEDICATIONS: - Resume previous medications unless instructed otherwise by your surgeon. - May alternate extra strength Tylenol and Ibuprofen as needed for mild pain. - Tylenol 650 mg every 6 hours as needed - Ibuprofen 600 mg every 6 hours as needed (take with food) - Percocet 1 every 4 hours, as needed for moderate to severe pain FOLLOW UP VISIT: - If not already scheduled, please call the office to schedule a two week follow-up appointment. Office number Pending Studies at Discharge: No Stand-Alone Forms: My [facility] Skilled Items Patient informed of condition?: Yes DNR: No Discharge Level of Care: Acute rehab Communicable Disease: No Discharge Prognosis: Stable Lines: None Urinary Catheter: No Medications and DC Order Prescriptions: New doxycycline hyclate 100 mg capsule 100 mg PO BID 7 Days Qty: 14 RF: 0 Continued carbidopa-levodopa 25-100 mg tablet 2 tab PO QID 30 Days Qty: 240 RF: 5 losartan 100 mg tablet 100 mg PO DAILY Qty: 90 RF: 1 ropinirole 1 mg tablet 1 mg PO TID Qty: 90 RF: 5 atorvastatin 40 mg tablet 40 mg PO DAILY Qty: 90 RF: 1 cetirizine 10 mg tablet 10 mg PO DAILY Qty: 90 RF: 1 omeprazole 40 mg capsule,delayed release(DR/EC) 40 mg PO DAILY Qty: 90 RF: 1 carvedilol 6.25 mg tablet 6.25 mg PO BID Qty: 180 RF: 1 tamsulosin 0.4 mg capsule 0.4 mg PO DAILY Qty: 90 RF: 1 amlodipine 5 mg tablet 5 mg PO BID Qty: 180 RF: 1 cimetidine 800 mg tablet 800 mg PO .COMPLEX Qty: 30 RF: 5 potassium chloride 10 mEq tablet extended release 20 meq PO DAILY Qty: 180 RF: 1 fluticasone propionate [Flonase Allergy Relief] 50 mcg/actuation s pray,suspension 2 spray INTNAS DAILY Qty: 16 RF: 2 gabapentin 300 mg capsule 300 mg PO BID Qty: 90 RF: 5 tramadol 50 mg tablet 50 mg PO TID PRN (Reason: pain) Qty: 90 RF: 0 furosemide 40 mg tablet 40 mg PO PRN Qty: 90 RF: 3 carbidopa-levodopa 50-200 mg tablet extended release 1 tab PO .QD Qty: 30 RF: 5 multivitamin [Multiple Vitamins] tablet 1 tab PO DAILY RF: 0 aspirin 81 mg tablet,chewable 81 mg PO DAILY Qty: 30 RF: 0 naproxen 500 mg tablet 500 mg PO Q12H PRN (Reason: pain) Qty: 14 RF: 0 Discharge Orders: Discharge Order (Routine); Ordered 07/23/20 Ordered By: Pelon Urban Admission Data Admit Date/Time: 07/18/20 09:05 Attending Provider: Tom Cortes Admit Provider: Alejandro Isaac Primary Care Provider: Lesley Montague Other Providers: Christopher Almodovar ; [employer] ; [facility] ; Billy Arias Other Interventions: Discharge Summary Assessment (RN) Last Done: 07/23/20 12:27 Supervising Physician Co-Signing Physician Notes Attending attestation Pt seen and examined in concert with Dr. Urban. In agreement with the documented findings as noted in the resident documentation with any exceptions or additions as noted here. Abdominal pain continues to improve, BM this AM. newly developed localized erythema and induration periumbilically at site. On examination, S1/S2 nl RRR no MCG. CTAB. Abd TTP mildly at site, BS +ve. Acute hypoxic respiratory failure - likely aspiration vs. laryngeal dysfunction, less likely HFpEF based on lack of response to furosemide previously. Returned to room air and tolerating well. complete course of PO abx as noted below. Celluitis of abdomen - course of doxycycline PO for concern for skin infection. f/u at facility with close monitoring for changes/worsening/fever Cholecystitis - surgery consultation - s/p lap shai Chronic postnasal drip with laryngeal wheeze - fluticasone nasal spray Else see resident documentation as noted. Total attending time spent on case on day of discharge: 40 minutes Resident Activity Tracking Resident Involvement: Resident Care Provided Care Provided: Adult Hospital Medicine
--- NOTE | 2020-07-23 10:03 | Surgery Progress Note ---
Date of Service July 23, 2020 Assessment & Plan (1) Acute cholecystitis: POD # 4 s/p laparoscopic cholecystectomy - afebrile, vitals stable - Sarbjit removed two days ago - Infraumbilical erythema, possible cellulitis?? currently on augmentin Plan: Discussed with Resident, need for further antibiotics (clindamycin possibly) given possible infraumbilical cellulitis. Augmentin to be discontinued today. WIll need follow-up in surgical office 1-[address] Alejandro has seen patient and agrees with above. Admission and Anticipated Discharge Date Admission Date: July 18, 2020 Subjective nurse asked if I could evaluate patient given redness around umbilicus. Has blisters from tape on left abdomen. patient states he is feeling better overall, needed oxygen last night after coughing started. Not requiring oxygen now. Awaiting authorization for inpatient rehab. Tolerated diet, minimal abdominal pain, having bowel movements. Physical Exam Constitutional: WD/WN, vitals as above Respiratory: no respiratory distress, no labored breathing and no retractions Gastrointestinal (Abdomen): Inspection/Auscultation: abdomen not distended Percussion/Palpation: + abdomen tender (at umbilicus and infraumbilical area at site of errythema) and abdomen soft; no guarding and abdomen not rigid Skin: no rashes, warm and dry There are blisters present on left side of abdomen at site of prior tape. There is erythema inferior to umbilical incision with some induration but unable to palpate definitive fluctuance. No drainage from incision after steri strips removed but crusty at incision. Tenderness to palpation. Psychiatric: A+Ox3, euthymic affect Results & Data ([facility]) Vital Signs (Past 12 Hours) Vital Signs Temp Pulse Resp BP Pulse Ox 07/23/20 07:50 36.8 C 68 19 166/76 H 92 07/22/20 22:36 36.4 C L 79 18 157/83 H 95
[2020-07-23] MEDS ORDERED: DOXYCYCLINE HYCLATE 100 MG CAP PO STA (12:08)
--- NOTE | 2020-08-02 17:30 | Coding Query ---
CODING QUERY To promote full compliance with coding requirements relating to patient care, provider participation is requested in all cases of machine load clerk uncertainty. Please assist us with the question(s) below: Coding Question(s): Patient admitted for acute cholelithiasis . DS mentions periumbilical mild , rash induration and postop celllulitis Please check below the phrase that describes the cellulits. Thank you COTY Santana [facility] Physician's Response(s): The periumblical cellulitis was a complication of the procedure The periumbilical cellulitus was not a complication of the procedure __X____ Cannot clinically correlate if the periumbilical cellulitis was a compication of the procedure Other/ Please document: Principal Diagnosis: "that condition established after study, to be chiefly responsible for occasioning the admission of the patient to the hospital for care." Co-Existing Principal Diagnosis: "when two or more diagnoses equally meet the criteria for principal diagnosis as determined by the circumstances of admission, diagnostic work up, and/or therapy provided, and the Alphabetic Index, Tabular List, or another coding guideline does not provide sequencing direction, any one of the diagnoses may be sequenced first." "When the physician has documented what appears to be a current diagnosis in the body of the record, but has not included the diagnosis in the final diagnostic statement, the physician should be asked whether the diagnosis should be added." (Source Coding [facility] 2 QTR90. p3-4) BRYAN
== END 2020-07-23 14:05 | DRG 417 ==
LOC: ED 01:35 → 3W 09:05 → SUATTDRO 09:05 → 3W 09:45

== ENCOUNTER 2022-07-04 16:29 | Inpatient (IN) ==
--- NOTE | 2022-07-04 17:29 | XRay Report ---
XR chest 1V portable HISTORY: 77 years-old Male cough acute cough COMPARISON: 04/28/2021 TECHNIQUE: AP view the chest FINDINGS: Cardiac silhouette is enlarged. Chronic mild right hemidiaphragmatic elevation. Prior median sternoto my with CABG. No pneumothorax. Blunting of the costophrenic angles with mild bibasilar densities. Deg enerative changes of the shoulders and spine. IMPRESSION: 1. Cardiomegaly without overt pulmonary edema. 2. Unchanged right hemidiaphragmatic elevation. 3. Blunting of the costophrenic angles suggestive of atelectasis versus trace effusions. ACT 112: Negative or not required by law. The above report was generated using voice recognition software. It may contain grammatical, syntax o r spelling errors. Electronically signed by: Kennedy Danielle M.D. 07/04/2022 5:28 PM
[2022-07-04 17:32] LABS: Basophils # (auto) 0.04 K/uL (0-0.2); Basophils % (auto) 0.4 %; Eosinophils # (auto) 0.08 K/uL (0-0.50); Eosinophils % (auto) 0.7 %; Hematocrit (blood only) 38.3 % (42.0-52.0); Hemoglobin 13.2 g/dl (14.0-18.0); Immature Granulocytes # (auto) 0.23 K/uL (0.01-0.20); Immature Granulocytes % (auto) 2.1 %; Lymphocytes # (auto) 1.79 K/uL (1.2-3.4); Lymphocytes % (auto) 16.2 %; Mean Corpuscular Hemoglobin 29.6 pg (25.0-34.0); Mean Corpuscular Hgb Conc 34.5 g/dL (32.0-36.0); Mean Corpuscular Volume 85.9 fL (80.0-100.0); Mean Platelet Volume 9.6 fL (9.4-12.4); Monocytes # (auto) 0.53 K/uL (0.11-0.59); Monocytes % (auto) 4.8 %; Neutrophils # (auto) 8.36 K/uL (1.40-6.50); Neutrophils % (auto) 75.8 %; Platelet Count 272 K/uL (130-400); RDW Standard Deviation 47.1 fL (36.4-46.3); Red Blood Count 4.46 M/uL (4.70-6.10); White Blood Count 11.03 K/ul (4.8-10.8)
[2022-07-04] MEDS ORDERED: ALBUT/IPRATROP 3MG/0.5MG NEB 3 ML VIAL NEB STA (17:37)
[2022-07-04] MEDS ORDERED: SODIUM CHLORIDE 0.9% 1000ML 500 ML IV ONE (17:43)
--- NOTE | 2022-07-04 17:43 | Emergency Department Note ---
Impression & Plan YULI (acute kidney injury), Wheezing, Infection due to human metapneumovirus (hMPV), Leukocytosis ED Provider Note NAME: CRIS DRUMMOND AGE: 77 SEX: M : 1945 ARRIVES VIA: Ambulance INFORMANT: [Patient][ems] ED PROVIDER(S): [Rios Call MD] CHIEF COMPLAINT: Abnormal laboratories HISTORY OF PRESENT ILLNESS: The patient is a 77-year-old male who was diagnosed with human metapneumovirus infection about a week ago. He has been coughing for about 2 weeks. He thinks his cough has worsened today. He denies shortness of breath. He denies chest pain or abdominal pain. No nausea or vomiting. The patient states that laboratory work was done demonstrating worsening renal function, he was sent to the hospital for evaluation. He states he is making urine and having no difficu lty with urination. PMHx/PSHx: See Below SOCIAL HISTORY: See Below. PHYSICAL EXAM: GENERAL: Patient is in no acute distress. HEENT: No acute trauma, normocephalic atraumatic, mucous membranes moist, no nasal congestion. NECK: No stridor, no adenopathy, no meningismus, trachea is midline. LUNGS: Significant wheezing bilaterally with decreased breath sounds bilaterally, dry cough noted, no respiratory distress. HEART: Without murmurs gallops or rubs, regular rate and rhythm. Heart tones are distant. ABDOMEN: Soft, nontender, bowel sounds positive, no peritonitis. EXTREMITIES: No cyanosis, mild bilateral pedal edema, full range of motion of all the joints without pain or difficulty, no signs for acute trauma. NEUROLOGIC: Oriented x 3, no acute motor or sensory deficits, no focal weakness. SKIN: No rash, no jaundice, no diaphoresis. DIFFERENTIAL DIAGNOSIS: Acute kidney injury, dehydration, electrolyte imbalance, viral illness, CHF, cardiac ischemia, anemia, among others. EMERGENCY DEPARTMENT COURSE/PROCEDURES: Prior/Outside records reviewed: EMS notes. Care center notes. ECG per my interpretation: Indication was weakness. The ECG shows a normal sinus rhythm with a rate of 73. There is a right bundle branch block and some nonspecific ST change. There is no ST elevation, no PVCs. The QTc is 420. T here is poor R wave progression. Continuous Cardiac Monitoring per my interpretation: An order was placed for continuous cardiac monitoring. The monitor shows a rate of 78 with normal sinus rhythm. MEDICAL DECISION MAKING: There is a mild leukocytosis which could be consistent with potential infection. A very mild anemia was seen. There was a normal platelet count. Sodium was low, this has been the case lately. Potassium was slightly elevated but not in need of emergent correction. Creatinine was quite high at over 4, this is a significant increase for the patient. No concerning liver enzyme elevation. Urinalysis does not show infection. COVID, influenza and RSV test were negative. Chest film showed some congestion at the bases, especially on the left, no true CHF or pneumonia per my review. Abdominal and pelvis CT did not show any urinary obstruction or acute surgical process. On exam, the patient was wheezing, he was noted to have a dry cough. The patient received a 500 cc saline bolus. He was given a DuoNeb. The patient presents with acute renal failure/insufficiency. He is wheezing. He certainly may be dehydrated from the human metapneumovirus infection diagnosed last week. Given the findings, hospitalization is warranted. I spoke with the patient and case management, the on-call hospitalist was consulted. DISPOSITION: Patient's findings and presentation warrant a hospital stay. Past Med/Surg History Medical History Arthritis Bilateral edema of lower extremity BPH (benign prostatic hyperplasia) Chronic venous insufficiency Coronary artery disease Epigastric abdominal pain Essential hypertension High cholesterol History of ID (myocardial infarction) Hypercholesterolemia Hypertension Impaired fasting glucose Lumbar stenosis with neurogenic claudication Male erectile disorder of organic origin Mitral regurgitation Obesity Osteoarthritis of left knee Parkinson disease Raynaud's disease Seborrheic dermatitis Varicose veins of both lower extremities Surgical History H/O colonoscopy S/P CABG x 3 S/P cholecystectomy [place] teeth removed Family History Father Colitis Mother Myocardial infarction Coronary arteriosclerosis Sister Thrombophlebitis Denies family history of Ovarian cancer Prostate cancer Breast cancer Colorectal cancer Social History Smoking Status: Never smoker Second Hand Exposure: No; Hx Alcohol Use: No Hx Substance Use: No Preferred Language: Swiss Communication Ability: Effective Visual Impairment: No Limitations Hearing Ability: Normal Asset Protection Professional Required: No Beliefs That Will Affect Care: None marital status: Current Living Situation: Spouse current occupational status: retired How many Children do You have: 2 Feels Safe at Home: Yes Childhood Exposure to Second-Hand Smoke: No Diet Comment: regular caffeine: Yes during the past year weight has: decreased > 10 lbs Dental Care, Regularly: Yes Physical Activity Frequency: Does not Exercise Seatbelt Use: always Sunscreen Use: Yes Assistive Devices: Glasses and Walker Allergies Allergies Allergy/AdvReac Type Severity Reaction Status Date / Time No Known Allergies Allergy Verified 07/04/22 18:49 Home Meds Home Medications Medication Instructions Recorded Confirmed aspirin 81 mg chewable tablet 81 mg PO QAM #30 tabs 12/23/18 07/04/22 pramipexole 0.5 mg tablet 0.5 mg PO TID 06/03/22 07/04/22 acetaminophen 325 mg tablet 325 mg PO Q6H PRN TEMP >100/PAIN 07/04/22 07/04/22 1-4 SCALE atorvastatin 40 mg tablet 40 mg PO HS 07/04/22 07/04/22 carbidopa ER 50 mg-levodopa 200 mg 1 tab PO .BID @ 0400 & 1600 07/04/22 07/04/22 tablet,extended release cetirizine 10 mg tablet 10 mg PO QAM 07/04/22 07/04/22 cholecalciferol (vitamin D3) 50 50 mcg PO QAM 07/04/22 07/04/22 mcg (2,000 unit) capsule cimetidine 800 mg tablet 800 mg PO 07/04/22 07/04/22 docusate sodium 100 mg capsule 100 mg PO 07/04/22 07/04/22 fluticasone propionate 50 2 spray intranasal QA 07/04/22 07/04/22 mcg/actuation nasal spray,suspension (Flonase Allergy Relief) geriatric [id number]-[id number] 1 tab PO QAM 07/04/22 07/04/22 guaifenesin 100 mg/5 mL oral liquid 200 mg PO QID 07/04/22 07/04/22 ipratropium 0.5 mg-albuterol 3 mg 3 ml inhalation Q2H PRN Shortness 07/04/22 (2.5 mg base)/3 mL nebulization Of Breath Or Wheezing soln ondansetron HCl 4 mg tablet 4 mg PO Q6H PRN NAUSEA/VOMITING 07/04/22 07/04/22 tamsulosin 0.4 mg capsule 0.4 mg PO HS 07/04/22 07/04/22 tramadol 50 mg tablet 50 mg PO Q8H PRN pain 07/04/22 07/04/22 Previous Rx's Medication Instructions Recorded carvedilol 6.25 mg tablet 6.25 mg PO BID #180 tabs 10/06/21 gabapentin 300 mg capsule 300 mg PO BID #90 caps 12/29/21 carbidopa 25 mg-levodopa 100 mg See Rx Instructions .Route 03/01/22 tablet .COMPLEX #300 tabs Results & Data (ED) Vital Signs Vital Signs - 24 hr 07/04/22 16:33 07/04/22 18:05 07/04/22 18:07 Temperature 36.8 C Temperature Source Temporal Artery Scan Pulse Rate 73 Pulse Rate [Right Finger] 68 Respiratory Rate 16 24 Respiratory Effort / Characteristics Non-Labored Spontaneous Spontaneous Labored Spontaneous Labored Respiratory Depth Normal Blood Pressure 102/56 L Blood Pressure [Right Arm] 110/56 L Blood Pressure Mean 71 Blood Pressure Mean [Right Arm] 74 Pulse Oximetry 97 99 Oxygen Delivery Method Room Air Nebulizer Oxygen Flow Rate Sepsis Recent Fever Within 48 Hours No Sepsis New/Unexplained Change in Mental Status No Sepsis Action Taken by Nursing No Action Required Oxygen Flow Rate - Titration Pulse Oximetry Post Tiitration 07/04/22 19:34 07/04/22 19:34 Temperature Temperature Source Pulse Rate Pulse Rate [Right Finger] 84 Respiratory Rate 18 Respiratory Effort / Characteristics Respiratory Depth Blood Pressure Blood Pressure [Right Arm] 126/65 Blood Pressure Mean Blood Pressure Mean [Right Arm] 85 Pulse Oximetry 87 L 94 Oxygen Delivery Method Nasal Cannula Nasal Cannula Oxygen Flow Rate 0 2 Sepsis Recent Fever Within 48 Hours Sepsis New/Unexplained Change in Mental Status Sepsis Action Taken by Nursing Oxygen Flow Rate - Titration 2 Pulse Oximetry Post Tiitration 94 Home Medications Current Medication List: was personally reviewed by me Laboratory Data Attestation: I reviewed the patient's lab results. 07/04/22 16:58 07/04/22 16:58 Lab Results 07/04/22 07/04/22 07/04/22 Range/Units 16:58 16:58 16:58 WBC 11.03 H (4.8-10.8) K/ul RBC 4.46 L (4.70-6.10) M/uL Hgb 13.2 L (14.0-18.0) g/dl Hct 38.3 L (42.0-52.0) % MCV 85.9 (80.0-100.0) fL MCH 29.6 (25.0-34.0) pg MCHC 34.5 (32.0-36.0) g/dL RDW Std Deviation 47.1 H (36.4-46.3) fL RDW Coeff of Porsha 15.0 H (11.5-14.5) % Plt Count 272 (130-400) K/uL MPV 9.6 (9.4-12.4) fL Immature Gran % (Auto) 2.1 % Neut % (Auto) 75.8 % Lymph % (Auto) 16.2 % Nance % (Auto) 4.8 % Eos % (Auto) 0.7 % Baso % (Auto) 0.4 % Neut # (Auto) 8.36 H (1.40-6.50) K/uL Lymph # (Auto) 1.79 (1.2-3.4) K/uL Nance # (Auto) 0.53 (0.11-0.59) K/uL Eos # (Auto) 0.08 (0-0.50) K/uL Baso # (Auto) 0.04 (0-0.2) K/uL Immature Gran # (Auto) 0.23 H (0.01-0.20) K/uL Sodium 130 L (136-145) mmol/L Potassium 5.8 H (3.5-5.1) mmol/L Chloride 92 L (98-107) mmol/L Carbon Dioxide 29 (21-32) mmol/L Anion Gap 9 (3-11) BUN 91 H (6-23) mg/dl Creatinine 4.17 H (0.6-1.4) mg/dl Est Cr Clr Drug Dosing Not Reportable Est GFR ( Amer) 15.1 ml/min Est GFR (Non-Af Amer) 13.0 ml/min BUN/Creatinine Ratio 21.8 H (10-20) Glucose 180 H (70-99(Fasting)) mg/dl Calcium 9.2 (8.6-10.3) mg/dl Phosphorus 5.6 H (2.5-4.9) mg/dl Magnesium 2.5 H (1.7-2.4) mg/dl Total Bilirubin 0.5 (0.2-1.0) mg/dl AST 14 (13-39) U/L ALT 5 L (7-52) U/L Alkaline Phosphatase 90 (34-104) U/L Troponin I High Sens 8.9 (0-20) pg/ml Total Protein 7.2 (6.0-8.3) gm/dl Albumin 4.0 (3.4-5.0) gm/dl Globulin 3.2 (2.5-4.0) gm/dl Albumin/Globulin Ratio 1.3 (0.9-2) Urine Color Yellow Urine Appearance Clear (Clear) Urine pH 6.5 (4.5-7.5) Ur Specific [place] 1.012 (1.000-1.030) Urine Protein Negative (Negative) Urine Glucose (UA) 1+ H (Negative) Urine Ketones Negative (Negative) Urine Blood Negative (Negative) Urine Nitrite Negative (Negative) Urine Bilirubin Negative (Negative) Urine Urobilinogen Negative (Negative) Ur Leukocyte Esterase Negative (Negative) Administered Medications Discontinued Medications Albuterol (Albut/Ipratrop 3mg/0.5mg Neb 3 Ml Vial) 3 ml NEB NOW STA; Protocol Stop: 07/04/22 17:38 Last Admin: 07/04/22 18:08 Dose: 3 ml Documented By: ELIZABETH Sodium Chloride (Nss 1000ml) 500 mls @ 999 mls/hr IV .Q31M ONE Stop: 07/04/22 18:13 Last Infusion: 07/04/22 18:40 Dose: 0 mls/hr Documented By: Admin: 07/04/22 18:08 Dose: 999 mls/hr Documented By: ELIZABETH Imaging Data Radiologist's Impression: Chest X-Ray 07/04/22 16:41 XR chest 1V portable HISTORY: 77 years-old Male cough acute cough COMPARISON: 04/28/2021 TECHNIQUE: AP view the chest FINDINGS: Cardiac silhouette is enlarged. Chronic mild right hemidiaphragmatic elevation. Prior median sternotomy with CABG. No pneumothorax. Blunting of the costophrenic angles with mild bibasilar densities. Degenerative changes of the shoulders and spine. IMPRESSION: 1. Cardiomegaly without overt pulmonary edema. 2. Unchanged right hemidiaphragmatic elevation. 3. Blunting of the costophrenic angles suggestive of atelectasis versus trace effusions. ACT 112: Negative or not required by law. The above report was generated using voice recognition software. It may contain grammatical, syntax or spelling errors. Electronically signed by: Kennedy Danielle M.D. 07/04/2022 5:28 PM Abdomen/Pelvis CT 07/04/22 17:[address] WITHOUT CONTRAST CT DOSE: 1784.68 mGy.cm HISTORY: Acute bilateral flank pain poss urinary obstruction TECHNIQUE: Multiaxial CT images of the abdomen and pelvis were performed without contrast. A dose lowering technique was utilized adhering to the principles of ALARA. COMPARISON STUDY: CT abdomen pelvis 04/28/2021 FINDINGS: Respiratory motion artifact limits the study. Mild bibasilar atelectasis. Prior median sternotomy with CABG and extensive coronary artery calcifications. The unenhanced spleen, mildly atrophic pancreas and adrenal glands are unremarkable. Cholecystectomy. There are a few cysts within the left hepatic lobe redemonstrated measuring up to 3 cm. Hepatic steatosis. Cortical thinning of the kidneys with mild nonspecific bilateral perinephric stranding. 1.47 m cyst of the medial interpolar left kidney. Mild prostamegaly. Partial distention of the urinary bladder. Atherosclerosis of the aorta. No lymphadenopathy. Air-fluid levels within the distal esophagus. No bowel obstruction or bowel wall thickening. No ascites or mesenteric inflammation. Noninflamed appendix. Diastases recti. Unremarkable soft tissues. Degenerative changes of the spine, pelvis and hips. Posterior interbody chula and screw fusion hardware noted at L2- S1 with bilateral iliac bolts. L4-L5 discectomy. IMPRESSION: 1. No urolith or obstructive uropathy. 2. No bowel obstruction or bowel wall thickening. 3. Hepatic steatosis. 4. Additional findings as above. ACT 112: Negative or not required by law. The above report was generated using voice recognition software. It may contain grammatical, syntax or spelling errors. Electronically signed by: Kennedy Danielle M.D. 07/04/2022 6:51 PM Discharge Plan Visit Data Chief Complaint: Abnormal Labs/Diagnostic Testing ED Provider: Rios Call Discharge Problem: YULI (acute kidney injury), Wheezing, Infection due to human metapneumovirus (hMPV), Leukocytosis Patient Disposition: Admitted As Inpatient Condition: Fair Discharge Instructions Interventions: ED Discharge Assessment Last Done: 07/04/22 22:10
[2022-07-04 17:45] LABS: Alanine Aminotransferase 5 U/L (7-52); Albumin Globulin Ratio 1.3 (0.9-2); Alkaline Phosphatase 90 U/L (34-104); Anion Gap 9 (3-11); Aspartate Aminotransferase 14 U/L (13-39); BUN Creatinine Ratio 21.8 (10-20); Bilirubin,Total 0.5 mg/dl (0.2-1.0); Blood Urea Nitrogen 91 mg/dl (6-23); Calcium 9.2 mg/dl (8.6-10.3); Carbon Dioxide 29 mmol/L (21-32); Chloride 92 mmol/L (98-107); Est GFR (African American) 15.1 ml/min; Globulin 3.2 gm/dl (2.5-4.0); Glucose 180 mg/dl (70-99(Fasting)); Magnesium 2.5 mg/dl (1.7-2.4); Phosphorus 5.6 mg/dl (2.5-4.9); Potassium 5.8 mmol/L (3.5-5.1); Sodium 130 mmol/L (136-145); Total Protein 7.2 gm/dl (6.0-8.3)
[2022-07-04 17:48] LABS: Appearance Urine Clear (Clear); Bilirubin Urine Negative (Negative); Blood Urine Negative (Negative); Color Urine Yellow; Glucose Urine UA 1+ (Negative); Ketones Urine Negative (Negative); Leukocyte Esterase Urine Negative (Negative); Nitrite Urine Negative (Negative); Protein Urine Negative (Negative); Specific Gravity Urine 1.012 (1.000-1.030); Urobilinogen Urine Negative (Negative); pH Urine 6.5 (4.5-7.5)
[2022-07-04 17:52] LABS: Troponin I High Sensitivity 8.9 pg/ml (0-20)
--- NOTE | 2022-07-04 18:53 | CT Scan Report ---
ABDOMEN AND PELVIS CT WITHOUT CONTRAST CT DOSE: 1784.68 mGy.cm HISTORY: Acute bilateral flank pain poss urinary obstruction TECHNIQUE: Multiaxial CT images of the abdomen and pelvis were performed without contrast. A dose lo wering technique was utilized adhering to the principles of ALARA. COMPARISON STUDY: CT abdomen pelvis 04/28/2021 FINDINGS: Respiratory motion artifact limits the study. Mild bibasilar atelectasis. Prior median sternotomy wit h CABG and extensive coronary artery calcifications. The unenhanced spleen, mildly atrophic pancreas and adrenal glands are unremarkable. Cholecystectomy. There are a few cysts within the left hepatic l obe redemonstrated measuring up to 3 cm. Hepatic steatosis. Cortical thinning of the kidneys with mil d nonspecific bilateral perinephric stranding. 1.47 m cyst of the medial interpolar left kidney. Mild prostamegaly. Partial distention of the urinary bladder. Atherosclerosis of the aorta. No lymphadeno kehinde. Air-fluid levels within the distal esophagus. No bowel obstruction or bowel wall thickening. No ascit es or mesenteric inflammation. Noninflamed appendix. Diastases recti. Unremarkable soft tissues. Dege nerative changes of the spine, pelvis and hips. Posterior interbody chula and screw fusion hardware not ed at L2-S1 with bilateral iliac bolts. L4-L5 discectomy. IMPRESSION: 1. No urolith or obstructive uropathy. 2. No bowel obstruction or bowel wall thickening. 3. Hepatic steatosis. 4. Additional findings as above. ACT 112: Negative or not required by law. The above report was generated using voice recognition software. It may contain grammatical, syntax o r spelling errors. Electronically signed by: Kennedy Danielle M.D. 07/04/2022 6:51 PM
--- NOTE | 2022-07-04 18:58 | History & Physical Report ---
Date of Service July 04, 2022 History of Present Illness Chief Complaint: Abnormal outpatient labs Primary Care Provider: Akil Caroline Currie is a 77 year old male with a PMH significant for Parkinson's disease, idiopathic polyneuropathy, HTN, HFpEF (LVEF of 60-65% as of 06/30/22), CAD S/P three-vessel CABG with stress echo 07/2016 no ischemia, dyslipidemia, and raynaud's disease who presented to the [facility] ED on 07/04/22 due to worsening renal function on outpatient labs. Per the ED staff, the patient is currently living at [facility] and tested positive for human metapneumovirus approximately one week ago and has had poor oral intake. He had outpatient labs drawn which showed worsening renal function and was recommended to come to the ED for evaluation. In the ED the patient was found to be afebrile, hemodynamically stable, and stable on RA. Labs were significant for a leukocytosis fo 11 with stable Hgb and platelets, absolute neutrophils of 8.36, cr of 4.17 (Baseline appears to be near 1.7), potassium of 5.8, corrected sodium of 131, BUN of 91, chloride of 92, phos of 5.6, mag of 2.5, clean UA, covid 19/influenza/RSV in process. Chest danny was read as "1. Cardiomegaly without overt pulmonary edema. 2. Unchanged right hemidiaphragmatic elevation. 3. Blunting of the costophrenic angles suggestive of atelectasis versus trace effusions.". CT of the abdomen/pelvis WO con was read as "1. No urolith or obstructive uropathy. 2. No bowel obstruction or bowel wall thickening. 3. Hepatic steatosis. 4. Additional findings as above.". Allergies Allergy/AdvReac Type Severity Reaction Status Date / Time No Known Allergies Allergy Verified 07/04/22 18:49 Home Medications Medication Instructions Recorded Confirmed Type aspirin 81 mg chewable tablet 81 mg PO QAM #30 tabs 12/23/18 07/04/22 History carvedilol 6.25 mg tablet 6.25 mg PO BID #180 tabs 10/06/21 07/04/22 Rx gabapentin 300 mg capsule 300 mg PO BID #90 caps 12/29/21 07/04/22 Rx carbidopa 25 mg-levodopa 100 mg See Rx Instructions .Route 03/01/22 07/04/22 Rx tablet .COMPLEX #300 tabs pramipexole 0.5 mg tablet 0.5 mg PO TID 06/03/22 07/04/22 History acetaminophen 325 mg tablet 325 mg PO Q6H PRN TEMP >100/PAIN 07/04/22 07/04/22 History 1-4 SCALE atorvastatin 40 mg tablet 40 mg PO HS 07/04/22 07/04/22 History carbidopa ER 50 mg-levodopa 200 mg 1 tab PO .BID @ 0400 & 1600 07/04/22 07/04/22 History tablet,extended release cetirizine 10 mg tablet 10 mg PO QAM 07/04/22 07/04/22 History cholecalciferol (vitamin D3) 50 50 mcg PO QAM 07/04/22 07/04/22 History mcg (2,000 unit) capsule cimetidine 800 mg tablet 800 mg PO HS 07/04/22 07/04/22 History docusate sodium 100 mg capsule 100 mg PO HS 07/04/22 07/04/22 History fluticasone propionate 50 2 spray intranasal QAM 07/04/22 07/04/22 History mcg/actuation nasal spray,suspension (Flonase Allergy Relief) geriatric plhkhzub-[id number]-[id number] 1 tab PO QAM 07/04/22 07/04/22 History guaifenesin 100 mg/5 mL oral liquid 200 mg PO QID 07/04/22 07/04/22 History ipratropium 0.5 mg-albuterol 3 mg 3 ml inhalation Q2H PRN Shortness 07/04/22 07/04/22 History (2.5 mg base)/3 mL nebulization Of Breath Or Wheezing soln ondansetron HCl 4 mg tablet 4 mg PO Q6H PRN NAUSEA/VOMITING 07/04/22 07/04/22 History tamsulosin 0.4 mg capsule 0.4 mg PO HS 07/04/22 07/04/22 History tramadol 50 mg tablet 50 mg PO Q8H PRN pain 07/04/22 07/04/22 History Past Med/Surg History Medical History Arthritis Bilateral edema of lower extremity BPH (benign prostatic hyperplasia) Chronic venous insufficiency Coronary artery disease Epigastric abdominal pain Essential hypertension High cholesterol History of MD (myocardial infarction) Hypercholesterolemia Hypertension Impaired fasting glucose Lumbar stenosis with neurogenic claudication Male erectile disorder of organic origin Mitral regurgitation Never a smoker Obesity Osteoarthritis of left knee Parkinson disease Parkinson's disease Raynaud's disease Seborrheic dermatitis Varicose veins of both lower extremities Surgical History H/O colonoscopy S/P CABG x 3 S/P cholecystectomy [place] teeth removed Family History Father Colitis Mother Myocardial infarction Coronary arteriosclerosis Sister Thrombophlebitis Denies family history of Ovarian cancer Prostate cancer Breast cancer Colorectal cancer Social History Smoking Status: Never smoker Second Hand Exposure: No; Hx Alcohol Use: No Hx Substance Use: No Preferred Language: Yi Communication Ability: Effective Visual Impairment: No Limitations Hearing Ability: Normal Roundsman Required: No Beliefs That Will Affect Care: None marital status: Current Living Situation: Spouse current occupational status: retired How many Children do You have: 2 Feels Safe at Home: Yes Childhood Exposure to Second-Hand Smoke: No Diet Comment: regular caffeine: Yes during the past year weight has: decreased > 10 lbs Dental Care, Regularly: Yes Physical Activity Frequency: Does not Exercise Seatbelt Use: always Sunscreen Use: Yes Assistive Devices: Glasses and Walker Results & Data Results & Data Vital Signs (Past 12 Hours) Vital Signs Temp Pulse Pulse Resp BP BP Pulse Ox 07/04/22 18:05 68 24 110/56 L 99 07/04/22 16:33 36.8 C 73 16 102/56 L 97 O2 Del Method 07/04/22 18:05 Nebulizer 07/04/22 16:33 Room Air PG Care Time/CCT Total # of Minutes Spent Total Time Spent with Patient: Total time spent is greater than 50% in coordination of care (as documented) at patient's floor/unit and/or counseling patient: Coding Diagnoses
[2022-07-04 19:21] LABS: Influenza A virus by PCR Negative (Neg); Influenza B virus by PCR Negative (Neg); RSV by PCR Negative (Neg); SARS CoV2 RNA(COVID-19) Ceph NEGATIVE (Negative)
--- NOTE | 2022-07-04 20:00 | History & Physical Report ---
Date of Service July 04, 2022 Assessment & Plan (1) YULI (acute kidney injury): Plan: 77-year-old male with history of hypertension, hyperlipidemia, coronary artery disease status post three-vessel CABG July 2012 and Parkinson's disease presenting with several days of felling ill. Persistent dry cough that has been keeping him up at night as well as decreased oral intake. Patient sent to the ER after outpatient labs revealed worsening renal function. Non-oliguric. Labs here with BUN=91, Cr=4.17. Variable baseline renal function - over the last 6 months BUN typically 30's - 50's with progressive decline since 06/30/22. Cr baseline of approximately 1.5 - 2 with worsening since 06/30/22 as well. Patient with no urinary complaints. States that he is urinating as usual. No confusion, uremic symptoms. Elevated K=5.8. No acute EKG changes of hyperkalemia. UA is largely unremarkable Suspect multifactorial - decreased oral intake as well as several potentially renal-toxic agents - Losartan, Bumex, Lasix. Patient had been on KCl supplementation as well. -Admit to medical with telemetry -Check random urine Cr and Urea to calculate FeUrea -Check CK -Repeat BMP upon arrival to floor to assess K -Gentle IVF LR at 100mL/hr x 2 liters -Monitor intake and output -Monitor daily weights -Repeat chemistry in AM - if no improvement after IVF would consider Nephrology consultation -Renal dosing where needed -Avoid nephrotoxic medications (2) Human metapneumovirus (hMPV) pneumonia: Plan: Patient diagnosed with hMPV last week. He has had persistent cough - dry. No fever, chest pain, night sweats. No PNA noted on CXR. He does have diffuse wheezing. -Symptomatic management -Tylenol PRN -Hycodin PRN cough -Tessalon TID -DuoNebs and Albuterol -Continue supplemental O2 as needed (3) Idiopathic polyneuropathy: Plan: Chronic -Decrease Gabapentin for now due to renal compromise - typically takes 300mg po BID - will decreased to 100mg po BID (4) Chronic diastolic heart failure: Plan: Does not appear to be in acute exacerbation at this time. -Check BNP with next blood draw -Monitor I/Os -Daily weights -Holding Losartan, diuretics at this time -Continue Carvedilol 6.25mg po BID (5) Parkinson's disease: Plan: Chronic. Well managed with home regimen -Continue Carbidopa/Levodopa -Continue Mirapex (6) Coronary artery disease: Plan: Patient with CAD s/p CABG x 3V. Well controlled on current medications. No chest pain. Troponin unremarkable. EKG with no acute changes -Continue ASA 81mg po daily -Continue Atorvastatin 40mg po qHS -Continue Carvedilol -Holding Losartan (7) Hypercholesterolemia: Plan: Chronic -Continue Atorvastatin (8) Essential hypertension: Plan: Blood pressure is stable, 115/66 -Continue Carvedilol -Holding Losartan -Continue to monitor F/E/N - LR at 100mL/hr x 2 liters, monitor K - repeat BMP ordered for floor -if still elevated K will provide medical management. No EKG changes present. AHA diet as tolerated Ppx - Heparin Code - DNR/DNI Dispo - Admit to medical with telemetry History of Present Illness Chief Complaint: cough, SOB, YULI Primary Care Provider: Tashua Craoline Kush Randle is a 77yo male resident of [facility] with history of HTN, HLP, CAD s/p CABG x 3V in July 2012, HFpEF with EF 60-65% per echocardiogram 06/30/22 and Parkinson's disease presenting with abnormal renal labs. Patient was diagnosed with URI secondary to Human Metapneumovirus last week. He has had a persistent dry cough as well as some shortness of breath ongoing for the last two weeks. He had bloodwork performed today which revealed worsening renal function, therefore, patient was instructed to come to the ER. He denies fever, chills, chest pain, abdominal pain, nausea, vomiting, diarrhea or constipation. Denies orthopnea or worsenign edema. He reports that he is urinating without difficulty. States that his urine is normal color, no foam or blood. No suprapubic pain or flank pain. He has been eating and drinking less over the last two weeks due to feeling ill from his URI. Patient was on Losartan as well as Metolazone, Bumex and KCl. He has been on oxygen at [facility] for the last two days - prior to this, has not been on O2. In the ER he is afebrile, HD stable. Adequate oxygenation on 2L [place] ER Course: NSS x 500mL Albuterol neb 3mL Allergies Allergy/AdvReac Type Severity Reaction Status Date / Time No Known Allergies Allergy Verified 07/04/22 18:49 Home Medications Medication Instructions Recorded Confirmed Type aspirin 81 mg chewable tablet 81 mg PO QAM #30 tabs 12/23/18 07/04/22 History carvedilol 6.25 mg tablet 6.25 mg PO BID #180 tabs 10/06/21 07/04/22 Rx gabapentin 300 mg capsule 300 mg PO BID #90 caps 12/29/21 07/04/22 Rx carbidopa 25 mg-levodopa 100 mg See Rx Instructions .Route 03/01/22 07/04/22 Rx tablet .COMPLEX #300 tabs pramipexole 0.5 mg tablet 0.5 mg PO TID 06/03/22 07/04/22 History acetaminophen 325 mg tablet 325 mg PO Q6H PRN TEMP >100/PAIN 07/04/22 07/04/22 History 1-4 SCALE atorvastatin 40 mg tablet 40 mg PO HS 07/04/22 07/04/22 History carbidopa ER 50 mg-levodopa 200 mg 1 tab PO .BID @ 0400 & 1600 07/04/22 07/04/22 History tablet,extended release cetirizine 10 mg tablet 10 mg PO QAM 07/04/22 07/04/22 History cholecalciferol (vitamin D3) 50 50 mcg PO QAM 07/04/22 07/04/22 History mcg (2,000 unit) capsule cimetidine 800 mg tablet 800 mg PO HS 07/04/22 07/04/22 History docusate sodium 100 mg capsule 100 mg PO HS 07/04/22 07/04/22 History fluticasone propionate 50 2 spray intranasal QAM 07/04/22 07/04/22 History mcg/actuation nasal spray,suspension (Flonase Allergy Relief) geriatric [id number] 1 tab PO QAM 07/04/22 07/04/22 History guaifenesin 100 mg/5 mL oral liquid 200 mg PO QID 07/04/22 07/04/22 History ipratropium 0.5 mg-albuterol 3 mg 3 ml inhalation Q2H PRN Shortness 07/04/22 07/04/22 History (2.5 mg base)/3 mL nebulization Of Breath Or Wheezing soln ondansetron HCl 4 mg tablet 4 mg PO Q6H PRN NAUSEA/VOMITING 07/04/22 07/04/22 History tamsulosin 0.4 mg capsule 0.4 mg PO HS 07/04/22 07/04/22 History tramadol 50 mg tablet 50 mg PO Q8H PRN pain 07/04/22 07/04/22 History Past Med/Surg History Medical History (Updated 07/04/22 @ 21:16 by Marii De Dios DO) Arthritis Bilateral edema of lower extremity BPH (benign prostatic hyperplasia) Chronic venous insufficiency Coronary artery disease Epigastric abdominal pain Essential hypertension High cholesterol History of ND (myocardial infarction) Hypercholesterolemia Hypertension Impaired fasting glucose Lumbar stenosis with neurogenic claudication Male erectile disorder of organic origin Mitral regurgitation Obesity Osteoarthritis of left knee Parkinson disease Raynaud's disease Seborrheic dermatitis Varicose veins of both lower extremities Surgical History H/O colonoscopy S/P CABG x 3 S/P cholecystectomy [place] teeth removed Family History Father Colitis Mother Myocardial infarction Coronary arteriosclerosis Sister Thrombophlebitis Denies family history of Ovarian cancer Prostate cancer Breast cancer Colorectal cancer Social History Smoking Status: Never smoker Second Hand Exposure: No; Hx Alcohol Use: No Hx Substance Use: No Preferred Language: Yi Communication Ability: Effective Visual Impairment: No Limitations Hearing Ability: Normal Employment Case Manager Required: No Beliefs That Will Affect Care: None marital status: Current Living Situation: Spouse current occupational status: retired How many Children do You have: 2 Feels Safe at Home: Yes Childhood Exposure to Second-Hand Smoke: No Diet Comment: regular caffeine: Yes during the past year weight has: decreased > 10 lbs Dental Care, Regularly: Yes Physical Activity Frequency: Does not Exercise Seatbelt Use: always Sunscreen Use: Yes Assistive Devices: Glasses and Walker Review of Systems Review of Systems: All systems reviewed & are unremarkable except as noted in HPI & below Physical Exam Physical Exam: General: patient resting comfortably, NAD, non-toxic in appearance, AA&O x 4, constant episodes of dry cough with speaking, NC in place Skin: warm, dry, intact, no rashes or lesions HEENT: NC/AT, PERRL, EOMI, anicteric sclera, conjunctiva without injection, ex ternal ear normal to inspection and nontender, nares patent, slightly dry mucus membranes, dentition intact, no oropharyngeal lesions, neck supple, trachea midline, no LAD, no thyromegaly, no JVD Heart: +S1/S2, regular, no m/r/g Lungs: equal air entry bilaterally, faint end-expiratory wheezing L > R Abd: +BS, soft, NT/ND, no masses/organomegaly/ascites Ext: warm, 2+ pulses in UE/LE bilaterally, no clubbing/cyanosis, 1+ pitting edema of bilateral LE equal Neuro: nonfocal, patient AA&O x 4, speech intact, no facial droop, moving all extremities on command with equal strength 5/5 Results & Data Results & Data Vital Signs (Past 12 Hours) Vital Signs Temp Pulse Pulse Resp BP BP Pulse Ox 07/04/22 19:34 84 18 126/65 94 07/04/22 19:34 87 L 07/04/22 18:05 68 24 110/56 L 99 07/04/22 16:33 36.8 C 73 16 102/56 L 97 O2 Del Method O2 Flow Rate 07/04/22 19:34 Nasal Cannula 2 07/04/22 19:34 Nasal Cannula 0 07/04/22 18:05 Nebulizer 07/04/22 16:33 Room Air Laboratory Results Laboratory Results WBC 11.03 K/ul (4.8-10.8) H 07/04/22 16:58 RBC 4.46 M/uL (4.70-6.10) L 07/04/22 16:58 Hgb 13.2 g/dl (14.0-18.0) L 07/04/22 16:58 Hct 38.3 % (42.0-52.0) L 07/04/22 16:58 MCV 85.9 fL (80.0-100.0) 07/04/22 16:58 MCH 29.6 pg (25.0-34.0) 07/04/22 16:58 MCHC 34.5 g/dL (32.0-36.0) 07/04/22 16:58 RDW Std Deviation 47.1 fL (36.4-46.3) H 07/04/22 16:58 RDW Coeff of [place] 15.0 % (11.5-14.5) H 07/04/22 16:58 Plt Count 272 K/uL (130-400) 07/04/22 16:58 MPV 9.6 fL (9.4-12.4) 07/04/22 16:58 Immature Gran % (Auto) 2.1 % 07/04/22 16:58 Neut % (Auto) 75.8 % 07/04/22 16:58 Lymph % (Auto) 16.2 % 07/04/22 16:58 [place] % (Auto) 4.8 % 07/04/22 16:58 Eos % (Auto) 0.7 % 07/04/22 16:58 Baso % (Auto) 0.4 % 07/04/22 16:58 Neut # (Auto) 8.36 K/uL (1.40-6.50) H 07/04/22 16:58 Lymph # (Auto) 1.79 K/uL (1.2-3.4) 07/04/22 16:58 [place] # (Auto) 0.53 K/uL (0.11-0.59) 07/04/22 16:58 Eos # (Auto) 0.08 K/uL (0-0.50) 07/04/22 16:58 Baso # (Auto) 0.04 K/uL (0-0.2) 07/04/22 16:58 Immature Gran # (Auto) 0.23 K/uL (0.01-0.20) H 07/04/22 16:58 Sodium 130 mmol/L (136-145) L 07/04/22 16:58 Potassium 5.8 mmol/L (3.5-5.1) H 07/04/22 16:58 Chloride 92 mmol/L (98-107) L 07/04/22 16:58 Carbon Dioxide 29 mmol/L (21-32) 07/04/22 16:58 Anion Gap 9 (3-11) 07/04/22 16:58 BUN 91 mg/dl (6-23) H 07/04/22 16:58 Creatinine 4.17 mg/dl (0.6-1.4) H 07/04/22 16:58 Est Cr Clr Drug Dosing Not Reportable 07/04/22 16:58 Est GFR ( Amer) 15.1 ml/min 07/04/22 16:58 Est GFR (Non-Af Amer) 13.0 ml/min 07/04/22 16:58 BUN/Creatinine Ratio 21.8 (10-20) H 07/04/22 16:58 Glucose 180 mg/dl (70-99(Fasting)) H 07/04/22 16:58 Calcium 9.2 mg/dl (8.6-10.3) 07/04/22 16:58 Phosphorus 5.6 mg/dl (2.5-4.9) H 07/04/22 16:58 Magnesium 2.5 mg/dl (1.7-2.4) H 07/04/22 16:58 Total Bilirubin 0.5 mg/dl (0.2-1.0) 07/04/22 16:58 AST 14 U/L (13-39) 07/04/22 16:58 ALT 5 U/L (7-52) L 07/04/22 16:58 Alkaline Phosphatase 90 U/L (34-104) 07/04/22 16:58 Troponin I High Sens 8.9 pg/ml (0-20) 07/04/22 16:58 Total Protein 7.2 gm/dl (6.0-8.3) 07/04/22 16:58 Albumin 4.0 gm/dl (3.4-5.0) 07/04/22 16:58 Globulin 3.2 gm/dl (2.5-4.0) 07/04/22 16:58 Albumin/Globulin Ratio 1.3 (0.9-2) 07/04/22 16:58 Urine Color Yellow 07/04/22 16:58 Urine Appearance Clear (Clear) 07/04/22 16:58 Urine pH 6.5 (4.5-7.5) 07/04/22 16:58 Ur Specific [place] 1.012 (1.000-1.030) 07/04/22 16:58 Urine Protein Negative (Negative) 07/04/22 16:58 Urine Glucose (UA) 1+ (Negative) H 07/04/22 16:58 Urine Ketones Negative (Negative) 07/04/22 16:58 Urine Blood Negative (Negative) 07/04/22 16:58 Urine Nitrite Negative (Negative) 07/04/22 16:58 Urine Bilirubin Negative (Negative) 07/04/22 16:58 Urine Urobilinogen Negative (Negative) 07/04/22 16:58 Ur Leukocyte Esterase Negative (Negative) 07/04/22 16:58 SARS-CoV-2 (PCR) NEGATIVE (Negative) 07/04/22 Unknown Influenza Type A (PCR) Negative (Neg) 07/04/22 Unknown Influenza Type B (PCR) Negative (Neg) 07/04/22 Unknown RSV (RT-PCR) Negative (Neg) 07/04/22 Unknown Impressions Chest X-Ray 07/04/22 16:41 XR chest 1V portable HISTORY: 77 years-old Male cough acute cough COMPARISON: 04/28/2021 TECHNIQUE: AP view the chest FINDINGS: Cardiac silhouette is enlarged. Chronic mild right hemidiaphragmatic elevation. Prior median sternotomy with CABG. No pneumothorax. Blunting of the costophrenic angles with mild bibasilar densities. Degenerative changes of the shoulders and spine. IMPRESSION: 1. Cardiomegaly without overt pulmonary edema. 2. Unchanged right hemidiaphragmatic elevation. 3. Blunting of the costophrenic angles suggestive of atelectasis versus trace effusions. ACT 112: Negative or not required by law. The above report was generated using voice recognition software. It may contain grammatical, syntax or spelling errors. Electronically signed by: Kennedy Danielle M.D. 07/04/2022 5:28 PM Abdomen/Pelvis CT 07/04/22 17:[address] WITHOUT CONTRAST CT DOSE: 1784.68 mGy.cm HISTORY: Acute bilateral flank pain poss urinary obstruction TECHNIQUE: Multiaxial CT images of the abdomen and pelvis were performed without contrast. A dose lowering technique was utilized adhering to the principles of ALARA. COMPARISON STUDY: CT abdomen pelvis 04/28/2021 FINDINGS: Respiratory motion artifact limits the study. Mild bibasilar atelectasis. Prior median sternotomy with CABG and extensive coronary artery calcifications. The unenhanced spleen, mildly atrophic pancreas and adrenal glands are unremarkable. Cholecystectomy. There are a few cysts within the left hepatic lobe redemonstrated measuring up to 3 cm. Hepatic steatosis. Cortical thinning of the kidneys with mild nonspecific bilateral perinephric stranding. 1.47 m cyst of the medial interpolar left kidney. Mild prostamegaly. Partial distention of the urinary bladder. Atherosclerosis of the aorta. No lymphadenopathy. Air-fluid levels within the distal esophagus. No bowel obstruction or bowel wall thickening. No ascites or mesenteric inflammation. Noninflamed appendix. Diastases recti. Unremarkable soft tissues. Degenerative changes of the spine, pelvis and hips. Posterior interbody chula and screw fusion hardware noted at L2- S1 with bilateral iliac bolts. L4-L5 discectomy. IMPRESSION: 1. No urolith or obstructive uropathy. 2. No bowel obstruction or bowel wall thickening. 3. Hepatic steatosis. 4. Additional findings as above. ACT 112: Negative or not required by law. The above report was generated using voice recognition software. It may contain grammatical, syntax or spelling errors. Electronically signed by: Kennedy Danielle M.D. 07/04/2022 6:51 PM ECG Additional Comments: NSR at 73, RBBB, WU=296, JSL=574, GEu=006, no significant change from prior study PG Care Time/CCT Total # of Minutes Spent Total Time Spent with Patient: Total time spent is greater than 50% in coordination of care (as documented) at patient's floor/unit and/or counseling patient: Coding Level of Care Code 05847 INT INP/OBS CARE MIN Diagnoses YULI (acute kidney injury) N17.9 Human metapneumovirus (hMPV) pneumonia J12.3 Idiopathic polyneuropathy G60.9 Chronic diastolic heart failure I50.32 Parkinson's disease G20 Coronary artery disease I25.10 Hypercholesterolemia E78.00 Essential hypertension I10
[2022-07-04] MEDS ORDERED: traMADol HCL 50 MG TABLET PO PRN (22:09)
[2022-07-04] MEDS ORDERED: ALBUTEROL 0.5% NEB SOLN 2.5 MG/0.5 ML VIAL NEB PRN (22:09)
[2022-07-04] MEDS ORDERED: ACETAMINOPHEN 325 MG TAB PO PRN (22:09)
[2022-07-04] MEDS ORDERED: HYDROcodone/HOMATROPINE SYRUP 5MG/1.5MG 5ML UDP PO PRN (22:09)
[2022-07-04] MEDS ORDERED: POLYETHYLENE (MIRALAX) 17 GM PACK PO PRN (22:09)
[2022-07-04] MEDS ORDERED: ONDANSETRON INJ 2 MG/ML 2 ML VIAL IV PRN (22:09)
[2022-07-04] MEDS: TAMSULOSIN HCL 0.4 MG CAP PO SCH (23:10)
[2022-07-04] MEDS: DOCUSATE SODIUM 100 MG CAP PO SCH (23:11)
[2022-07-04] MEDS: PRAMIPEXOLE DIHYDROCHLO 0.5 MG TAB PO SCH (23:11)
[2022-07-04] MEDS: CARBIDOPA/LEVODOPA 25/100MG TAB PO SCH (23:12)
[2022-07-04] MEDS: HEPARIN SOD 5,000 UNIT/0.5 ML VIAL SQ SCH (23:13)
[2022-07-04] MEDS: BENZONATATE 100 MG CAPSULE PO SCH (23:13)
[2022-07-04] MEDS: carvediloL 6.25 MG TAB PO SCH (23:14)
[2022-07-04] MEDS: GABAPENTIN 100 MG CAP PO SCH (23:14)
[2022-07-04] MEDS: ATORVASTATIN 40 MG TAB PO SCH (23:15)
[2022-07-04] MEDS: LACTATED RINGER'S 1,000 ML IV SCH (23:20)
[2022-07-04 23:25] LABS: Anion Gap 9 (3-11); BUN Creatinine Ratio 22.9 (10-20); Blood Urea Nitrogen 80 mg/dl (6-23); Calcium 8.6 mg/dl (8.6-10.3); Carbon Dioxide 26 mmol/L (21-32); Chloride 96 mmol/L (98-107); Creatine Kinase 78 U/L (30-223); Est GFR (African American) 18.7 ml/min; Est GFR (Non-African American) 16.2 ml/min; Glucose 216 mg/dl (70-99(Fasting)); Potassium 5.2 mmol/L (3.5-5.1); Sodium 131 mmol/L (136-145)
[2022-07-05 04:32] LABS: Hematocrit (blood only) 36.2 % (42.0-52.0); Hemoglobin 12.5 g/dl (14.0-18.0); Mean Corpuscular Hgb Conc 34.5 g/dL (32.0-36.0); Mean Platelet Volume 9.1 fL (9.4-12.4); Platelet Count 259 K/uL (130-400); RDW Coefficient of Variation 15.1 % (11.5-14.5); RDW Standard Deviation 48.5 fL (36.4-46.3); Red Blood Count 4.16 M/uL (4.70-6.10); White Blood Count 10.15 K/ul (4.8-10.8)
[2022-07-05 04:42] LABS: Calcium 8.9 mg/dl (8.6-10.3); Creatinine Clr Calc Pharmacy 27.5 ml/min; Est GFR (African American) 23.6 ml/min; Est GFR (Non-African American) 20.4 ml/min; Potassium 5.2 mmol/L (3.5-5.1)
[2022-07-05] MEDS: CARBIDOPA/LEVODOPA 50/200MG EXT REL TAB PO SCH ×2 (05:10→18:10)
[2022-07-05] MEDS: HEPARIN SOD 5,000 UNIT/0.5 ML VIAL SQ SCH ×3 (05:11→20:53)
[2022-07-05] MEDS: ALBUT/IPRATROP 3MG/0.5MG NEB 3 ML VIAL NEB SCH ×4 (06:14→19:24)
[2022-07-05 08:53] LABS: Estimated Average Glucose 174 mg/dl; Hemoglobin A1C 7.7 % (4.5-5.6)
--- NOTE | 2022-07-05 09:09 | Nephrology Consultation ---
Date of Consultation July 05, 2022 Assessment & Plan (1) YULI (acute kidney injury): Non-oliguric. Creatinine improving. Baseline creatinine variable but appears to be 1.28 mg/dL. CT reviewed. Bilateral symmetric cortical thinning consistent with underlying microvascular disease. UA bland. CK not elevated. Mild hyperkalemia but electrolytes otherwise acceptable. Volume status reasonable. No indication for dialysis. Document strict I/Os. Repeat metabolic profile this afternoon. Medications appropriately dosed for kidney function. Hold losartan. Low potassium diet. (2) Infection due to human metapneumovirus (hMPV): (3) Chronic diastolic heart failure: Avoid significantly positive fluid balance. Suggest stopping IV LR once current infusion complete. BP acceptable. Volume status appears replete. Clinical history consistent with predominately R heart failure. Diuretics held. Discuss with cardiology regarding management moving forward. Document I/O's and daily weight. (4) BPH (benign prostatic hyperplasia): Remains on Flomax. Denies significant LUTS. Suggest documenting PVR with bladder scan while inpatient. History of Present Illness Reason for Consultation: YULI on CKD Requesting Physician: Tammy Perez DO Attending Physician: Tammy Perez DO History of Present Illness Mr. Kush Randle is a 77 year-old male with a history of HFpEF, coronary artery disease, Parkinson's disease, hypertension, morbid obesity, and chronic kidney disease. He is a resident at [facility]. Supplemental O2 has been provided symptomatically for the past few days at the SNF. Kush presented to [facility] yest brianna for management of acute kidney injury and hyperkalemia. He was diagnosed with Human Metapneumovirus URI last week. Kush continues to struggle with persistent cough and fatigue. He reports poor appetite for several days. Appetite is now improving. Kush was seen and evaluated in the ED this morning. He was resting in bed with nagging cough. IV LR infusing at 100 ml/hr. Kush reports some increased edema in his ankles but he notes that his weight has been stable. He is breathing otherwise comfortably. He denies any chest pain or palpitations. He denies notable orthopnea. Kush follows in the outpatient cardiology clinic with Sia Shukla PA-C routinely. TTE was updated on June 30. IVF provided at documented ~3 L for this study. The right side of the heart was not well appreciated. At baseline, weight has typically been 270-275 lbs. Weight on admission was 279 lbs by bed scale. 500 ml of NSS provided prior to admission. Kush has no urinary complaints. He has never been previously e valuated by a station mechanic helper. Serum creatinine fluctuates by history. Creatinine 128 mg/dL on June 23. Creatinine 4.17 mg/dL yesterday and 2.88 mg/dL this AM. The patient is non-oliguric. No new medications noted. No NSAID use. CT of the abdomen and pelvis demonstrates unobstructed kidneys. There is bilateral symmetric cortical thinning with a 1.5 cm cyst in the left kidney. The bladder is partially distended and prostate mildly enlarged. CXR demonstrates cardiomegaly and some distention of the pulmonary vasculature without overt pulmonary edema. Small bilateral pleural effusions. Laboratory studies are also notable for a potassium of 5.2 mmol/L and HCO3 of 27. Losartan and Bumex have been held. Urine analysis demonstrating glucosuria. By medication reconciliation, Kush is not on SGLT2i therapy. He does not have proteinuria on dipstick. Blood glucose 216 with a hemoglobin A1c of 7.7%. Allergies Allergy/AdvReac Type Severity Reaction Status Date / Time No Known Allergies Allergy Verified 07/04/22 18:49 Home Medications Medication Instructions Recorded Confirmed Type aspirin 81 mg chewable tablet 81 mg PO QAM #30 tabs 12/23/18 07/04/22 History carvedilol 6.25 mg tablet 6.25 mg PO BID #180 tabs 10/06/21 07/04/22 Rx gabapentin 300 mg capsule 300 mg PO BID #90 caps 12/29/21 07/04/22 Rx carbidopa 25 mg-levodopa 100 mg See Rx Instructions .Route 03/01/22 07/04/22 Rx tablet .COMPLEX #300 tabs pramipexole 0.5 mg tablet 0.5 mg PO TID 06/03/22 07/04/22 History acetaminophen 325 mg tablet 325 mg PO Q6H PRN TEMP >100/PAIN 07/04/22 07/04/22 History 1-4 SCALE atorvastatin 40 mg tablet 40 mg PO HS 07/04/22 07/04/22 History carbidopa ER 50 mg-levodopa 200 mg 1 tab PO .BID @ 0400 & 1600 07/04/22 07/04/22 History tablet,extended release cetirizine 10 mg tablet 10 mg PO QAM 07/04/22 07/04/22 History cholecalciferol (vitamin D3) 50 50 mcg PO QAM 07/04/22 07/04/22 History mcg (2,000 unit) capsule cimetidine 800 mg tablet 800 mg PO HS 07/04/22 07/04/22 History docusate sodium 100 mg capsule 100 mg PO HS 07/04/22 07/04/22 History fluticasone propionate 50 2 spray intranasal QAM 07/04/22 07/04/22 History mcg/actuation nasal spray,suspension (Flonase Allergy Relief) geriatric [id number] 1 tab PO QAM 07/04/22 07/04/22 History guaifenesin 100 mg/5 mL oral liquid 200 mg PO QID 07/04/22 07/04/22 History ipratropium 0.5 mg-albuterol 3 mg 3 ml inhalation Q2H PRN Shortness 07/04/22 07/04/22 History (2.5 mg base)/3 mL nebulization Of Breath Or Wheezing soln ondansetron HCl 4 mg tablet 4 mg PO Q6H PRN NAUSEA/VOMITING 07/04/22 07/04/22 History tamsulosin 0.4 mg capsule 0.4 mg PO HS 07/04/22 07/04/22 History tramadol 50 mg tablet 50 mg PO Q8H PRN pain 07/04/22 07/04/22 History Patient History Medical History Arthritis Bilateral edema of lower extremity BPH (benign prostatic hyperplasia) Chronic venous insufficiency Coronary artery disease Epigastric abdominal pain Essential hypertension High cholesterol History of IA (myocardial infarction) Hypercholesterolemia Hypertension Impaired fasting glucose Lumbar stenosis with neurogenic claudication Male erectile disorder of organic origin Mitral regurgitation Obesity Osteoarthritis of left knee Parkinson disease Raynaud's disease Seborrheic dermatitis Varicose veins of both lower extremities Surgical History H/O colonoscopy S/P CABG x 3 S/P cholecystectomy [place] teeth removed Family History Father Colitis Mother Myocardial infarction Coronary arteriosclerosis Sister Thrombophlebitis Denies family history of Ovarian cancer Prostate cancer Breast cancer Colorectal cancer Social History Smoking Status: Never smoker Second Hand Exposure: No; Hx Alcohol Use: No Hx Substance Use: No Preferred Language: Palestinian Communication Ability: Effective Visual Impairment: No Limitations Hearing Ability: Normal Automotive Upholsterer Required: No Beliefs That Will Affect Care: None marital status: Current Living Situation: Spouse current occupational status: retired How many Children do You have: 2 Other Information That Helps Us Care for You: No Feels Safe at Home: Yes Safety Concerns: Feels Safe At This Time Childhood Exposure to Second-Hand Smoke: No Diet Comment: regular caffeine: Yes during the past year weight has: decreased > 10 lbs Dental Care, Regularly: Yes Physical Activity Frequency: Does not Exercise Seatbelt Use: always Sunscreen Use: Yes Assistive Devices: Cane, Glasses and Walker Review of Systems Review of Systems: All systems reviewed & are unremarkable except as noted in HPI & below Constitutional: + fatigue; no fever and no chills Respiratory: + cough Cardiovascular: + edema Physical Exam Constitutional: well developed and + morbidly obese; no acute distress Eyes: no scleral abnormality and no corneal abnormality ENMT: Mouth: no oral mucosal abnormality and oral mucous membranes not dry Neck: normal visual inspection, trachea midline and + thick neck Respiratory: normal respiratory effort Auscultation: lungs clear to auscultation bilaterally Cardiovascular: Rate/Rhythm: regular rate Heart Sounds: normal S1 and normal S2 Extremities: + edema Musculoskeletal: Extremities: no cyanosis and no clubbing Skin: normal turgor; no jaundice Neurologic: Motor/Sensory: no tremor and no asterixis Psychiatric: Orientation: alert and oriented x 3 Results & Data Vital Signs (Past 12 Hours) Vital Signs Pulse Pulse Pulse Resp BP Pulse Ox O2 Del Method 07/05/22 05:15 70 16 132/55 L 97 Nasal Cannula 07/05/22 00:35 Nasal Cannula 07/04/22 23:20 71 07/04/22 23:07 76 18 115/67 93 Nasal Cannula 07/04/22 22:01 78 16 148/77 H 94 Nasal Cannula 07/04/22 21:32 84 18 111/83 95 Nasal Cannula O2 Flow Rate 07/05/22 05:15 2 07/05/22 00:35 2 07/04/22 23:20 07/04/22 23:07 2 07/04/22 22:01 2 07/04/22 21:32 2 Laboratory Results Laboratory Results - last 24 hr 07/04/22 07/04/22 07/04/22 16:58 16:58 16:58 WBC 11.03 H RBC 4.46 L Hgb 13.2 L Hct 38.3 L MCV 85.9 MCH 29.6 MCHC 34.5 RDW Std Deviation 47.1 H RDW Coeff of Porsha 15.0 H Plt Count 272 MPV 9.6 Immature Gran % (Auto) 2.1 Neut % (Auto) 75.8 Lymph % (Auto) 16.2 [place]anan % (Auto) 4.8 Eos % (Auto) 0.7 Baso % (Auto) 0.4 Neut # (Auto) 8.36 H Lymph # (Auto) 1.79 Buchanan # (Auto) 0.53 Eos # (Auto) 0.08 Baso # (Auto) 0.04 Immature Gran # (Auto) 0.23 H Sodium 130 L Potassium 5.8 H Chloride 92 L Carbon Dioxide 29 Anion Gap 9 BUN 91 H Creatinine 4.17 H Est Cr Clr Drug Dosing Not Reportable Est GFR ( Amer) 15.1 Est GFR (Non-Af Amer) 13.0 BUN/Creatinine Ratio 21.8 H Glucose 180 H Calcium 9.2 Phosphorus 5.6 H Magnesium 2.5 H Total Bilirubin 0.5 AST 14 ALT 5 L Alkaline Phosphatase 90 Total Creatine Kinase Troponin I High Sens 8.9 B-Natriuretic Peptide Total Protein 7.2 Albumin 4.0 Globulin 3.2 Albumin/Globulin Ratio 1.3 Urine Color Yellow Urine Appearance Clear Urine pH 6.5 Ur Specific [place] 1.012 Urine Protein Negative Urine Glucose (UA) 1+ H Urine Ketones Negative Urine Blood Negative Urine Nitrite Negative Urine Bilirubin Negative Urine Urobilinogen Negative Ur Leukocyte Esterase Negative Ur Random Creatinine Ur Random Urea Nitrogn SARS-CoV-2 (PCR) Hepatitis C Ab (EIA) Hep C Ab Signal/Cutoff Influenza Type A (PCR) Influenza Type B (PCR) RSV (RT-PCR) 07/04/22 07/04/22 07/04/22 19:30 19:30 22:40 WBC RBC Hgb Hct MCV MCH MCHC RDW Std Deviation RDW Coeff of Porsha Plt Count MPV Immature Gran % (Auto) Neut % (Auto) Lymph % (Auto) [place] % (Auto) Eos % (Auto) Baso % (Auto) Neut # (Auto) Lymph # (Auto) [place]anan # (Auto) Eos # (Auto) Baso # (Auto) Immature Gran # (Auto) Sodium Potassium Chloride Carbon Dioxide Anion Gap BUN Creatinine Est Cr Clr Drug Dosing Est GFR ( Amer) Est GFR (Non-Af Amer) BUN/Creatinine Ratio Glucose Calcium Phosphorus Magnesium Total Bilirubin AST ALT Alkaline Phosphatase Total Creatine Kinase Troponin I High Sens B-Natriuretic Peptide 32 Total Protein Albumin Globulin Albumin/Globulin Ratio Urine Color Urine Appearance Urine pH Ur Specific [place] Urine Protein Urine Glucose (UA) Urine Ketones Urine Blood Urine Nitrite Urine Bilirubin Urine Urobilinogen Ur Leukocyte Esterase Ur Random Creatinine 50.6 Ur Random Urea Nitrogn Pending SARS-CoV-2 (PCR) Hepatitis C Ab (EIA) Hep C Ab Signal/Cutoff Influenza Type A (PCR) Influenza Type B (PCR) RSV (RT-PCR) 07/04/22 07/04/22 07/05/22 22:48 Unknown 04:07 WBC RBC Hgb Hct MCV MCH MCHC RDW Std Deviation RDW Coeff of Porsha Plt Count MPV Immature Gran % (Auto) Neut % (Auto) Lymph % (Auto) [place] % (Auto) Eos % (Auto) Baso % (Auto) Neut # (Auto) Lymph # (Auto) [place] # (Auto) Eos # (Auto) Baso # (Auto) Immature Gran # (Auto) Sodium 131 L Potassium 5.2 H Chloride 96 L Carbon Dioxide 26 Anion Gap 9 BUN 80 H Creatinine 3.49 H D Est Cr Clr Drug Dosing Not Reportable Est GFR ( Amer) 18.7 Est GFR (Non-Af Amer) 16.2 BUN/Creatinine Ratio 22.9 H Glucose 216 H Calcium 8.6 Phosphorus Magnesium Total Bilirubin AST ALT Alkaline Phosphatase Total Creatine Kinase 78 Troponin I High Sens B-Natriuretic Peptide Total Protein Albumin Globulin Albumin/Globulin Ratio Urine Color Urine Appearance Urine pH Ur Specific [place] Urine Protein Urine Glucose (UA) Urine Ketones Urine Blood Urine Nitrite Urine Bilirubin Urine Urobilinogen Ur Leukocyte Esterase Ur Random Creatinine Ur Random Urea Nitrogn SARS-CoV-2 (PCR) NEGATIVE Hepatitis C Ab (EIA) Pending Hep C Ab Signal/Cutoff Pending Influenza Type A (PCR) Negative Influenza Type B (PCR) Negative RSV (RT-PCR) Negative 07/05/22 07/05/22 04:07 04:07 WBC 10.15 RBC 4.16 L Hgb 12.5 L Hct 36.2 L MCV 87.0 MCH 30.0 MCHC 34.5 RDW Std Deviation 48.5 H RDW Coeff of Porsha 15.1 H Plt Count 259 MPV 9.1 L Immature Gran % (Auto) Neut % (Auto) Lymph % (Auto) [place] % (Auto) Eos % (Auto) Baso % (Auto) Neut # (Auto) Lymph # (Auto) [place] # (Auto) Eos # (Auto) Baso # (Auto) Immature Gran # (Auto) Sodium 133 L Potassium 5.2 H Chloride 97 L Carbon Dioxide 27 Anion Gap 9 BUN 72 H Creatinine 2.88 H D Est Cr Clr Drug Dosing 27.5 Est GFR ( Amer) 23.6 Est GFR (Non-Af Amer) 20.4 BUN/Creatinine Ratio 25.0 H Glucose 129 H Calcium 8.9 Phosphorus Magnesium Total Bilirubin AST ALT Alkaline Phosphatase Total Creatine Kinase Troponin I High Sens B-Natriuretic Peptide Total Protein Albumin Globulin Albumin/Globulin Ratio Urine Color Urine Appearance Urine pH Ur Specific [place] Urine Protein Urine Glucose (UA) Urine Ketones Urine Blood Urine Nitrite Urine Bilirubin Urine Urobilinogen Ur Leukocyte Esterase Ur Random Creatinine Ur Random Urea Nitrogn SARS-CoV-2 (PCR) Hepatitis C Ab (EIA) Hep C Ab Signal/Cutoff Influenza Type A (PCR) Influenza Type B (PCR) RSV (RT-PCR) Diagnostic Findings ABDOMEN AND PELVIS CT WITHOUT CONTRAST FINDINGS: Respiratory motion artifact limits the study. Mild bibasilar atelectasis. Prior median sternotomy with CABG and extensive coronary artery calcifications. The unenhanced spleen, mildly atrophic pancreas and adrenal glands are unremarkable. Cholecystectomy. There are a few cysts within the left hepatic lobe r edemonstrated measuring up to 3 cm. Hepatic steatosis. Cortical thinning of the kidneys with mild nonspecific bilateral perinephric stranding. 1.47 m cyst of the medial interpolar left kidney. Mild prostamegaly. Partial distention of the urinary bladder. Atherosclerosis of the aorta. No lymphadenopathy. Air-fluid levels within the distal esophagus. No bowel obstruction or bowel wall thickening. No ascites or mesenteric inflammation. Noninflamed appendix. Diastases recti. Unremarkable soft tissues. Degenerative changes of the spine, pelvis and hips. Posterior interbody chula and screw fusion hardware noted at L2- S1 with bilateral iliac bolts. L4-L5 discectomy. IMPRESSION: 1. No urolith or obstructive uropathy. 2. No bowel obstruction or bowel wall thickening. 3. Hepatic steatosis. XR chest 1V portable FINDINGS: Cardiac silhouette is enlarged. Chronic mild right hemidiaphragmatic elevation. Prior median sternotomy with CABG. No pneumothorax. Blunting of the costophrenic angles with mild bibasilar densities. Degenerative changes of the shoulders and spine. IMPRESSION: 1. Cardiomegaly without overt pulmonary edema. 2. Unchanged right hemidiaphragmatic elevation. 3. Blunting of the costophrenic angles suggestive of atelectasis versus trace effusions. PG Care Time/CCT Total # of Minutes Spent Total Time Spent with Patient: Total time spent is greater than 50% in coordination of care (as documented) at patient's floor/unit and/or counseling patient: Coding Level of Care Code 57238 IN/OBS CONSULT LVL 4,60M Diagnoses YULI (acute kidney injury) N17.9 Infection due to human metapneumovirus (hMPV) B34.8 Chronic diastolic heart failure I50.32 BPH (benign prostatic hyperplasia) N40.0
[2022-07-05] MEDS: LACTATED RINGER'S 1,000 ML IV SCH (09:17)
[2022-07-05] MEDS: CARBIDOPA/LEVODOPA 25/100MG TAB PO SCH ×5 (09:18→20:45)
[2022-07-05] MEDS: FLUTICASONE PROPIONATE NA SPR 16 GM BTL SCH (09:18)
[2022-07-05] MEDS: CETIRIZINE HCL 10 MG TABLET PO SCH (09:18)
[2022-07-05] MEDS: GABAPENTIN 100 MG CAP PO SCH ×2 (09:18→20:46)
[2022-07-05] MEDS: BENZONATATE 100 MG CAPSULE PO SCH ×3 (09:18→20:48)
[2022-07-05] MEDS: carvediloL 6.25 MG TAB PO SCH ×2 (09:18→20:47)
[2022-07-05] MEDS: PRAMIPEXOLE DIHYDROCHLO 0.5 MG TAB PO SCH ×3 (09:18→20:46)
[2022-07-05] MEDS: ASPIRIN 81 MG ECTAB PO SCH (09:18)
[2022-07-05] MEDS ORDERED: guaiFENesin/CODEINE 100MG/10MG 5ML UDC PO STA (09:32)
--- NOTE | 2022-07-05 11:43 | Hospitalist Progress Note ---
Date of Service July 05, 2022 Assessment & Plan (1) YULI (acute kidney injury): Plan: Baseline creatinine widely variable but is about 1.3 Admission creatinine 4.17, has downtrended to 1.99 with LR at 100 cc/h x 1.5 L from yesterday into today, discontinued at this point Patient is nonoliguric Repeat BMP in the morning Close monitoring and documentation of postvoid residuals with bladder scan while inpatient given history of BPH, continue Flomax Strict intake and output given concurrent YULI on CKD and history of HFpEF (2) Hyperkalemia: Plan: Potassium 5.8>5.0 after IV fluids Low potassium diet EKG without peaked T waves (3) Acute respiratory failure with hypoxia: Plan: Suspected secondary to human metapneumovirus pneumonia No evidence on admission chest x-ray of focal consolidation suggestive of pneumonia, overt pulmonary edema Currently on 2 L nasal cannula saturating to 95%, wean oxygen as tolerated Patient does have restricted air movement and wheezing on exam, continue scheduled and as needed DuoNebs (4) Human metapneumovirus (hMPV) pneumonia: Plan: See above Mucinex as needed for cough (5) Chronic heart failure with preserved ejection fraction (HFpEF): Plan: Chronic diastolic congestive heart failure: NYHA Class II-III symptoms Last heart failure visit 06/03/2022 with dry weight 270-275 pounds, on admission with weight of 282 however with evidence of No evidence of fluid overload on exam, chest x-ray without overt pulmonary edema Due to YULI, holding diuretics at this time; does take Bumex and at times metolazone at home Confirm dosing with cardiology/Sia Shukla and consider reintroducing diuretics to be titrated day-to-day based on his clinical exam, intake/output, and weight (6) Idiopathic polyneuropathy: Plan: History of, continue gabapentin (7) Parkinson's disease: Plan: History of, continue carbidopalevodopa, pramipexole (8) Coronary artery disease: Plan: History of, with CABG 06/20/2016 Continue aspirin, statin, Coreg (9) Hypercholesterolemia: Plan: See above (10) Essential hypertension: Plan: BP at goal for age at this time, continue to monitor Plan Heparin 5000 units every 8 hours for DVT prophylaxis Patient is DNR/DNI Low sodium, low potassium, heart healthy diet Medical with telemetry Admission and Anticipated Discharge Date Admission Date: July 04, 2022 Subjective Patient without any acute events overnight. Is having a lot of cough which is very frustrating because of some back pain. Denies any abdominal pain or nause a. No trouble breathing on the 2 L nasal cannula. Review of Systems Review of Systems: All systems reviewed & are unremarkable except as noted in Subjective Physical Exam Constitutional: WD/WN, vitals as above Respiratory: Normal respiratory effort, intermittent cough with deep breathing, expiratory wheezes heard throughout Cardiovascular: RRR, no murmur, no edema Gastrointestinal (Abdomen): normal bowel sounds, soft, nontender, no hepatosplenomegaly (Protuberant abdomen) Skin: no rashes, warm and dry Psychiatric: A+Ox3, euthymic affect Results & Data Results & Data Vital Signs (Past 12 Hours) Vital Signs Pulse Resp BP Pulse Ox O2 Del Method O2 Flow Rate 07/05/22 05:15 70 16 132/55 L 97 Nasal Cannula 2 07/05/22 00:35 Nasal Cannula 2 PG Care Time/CCT Total # of Minutes Spent Total Time Spent with Patient: Total time spent is greater than 50% in coordination of care (as documented) at patient's floor/unit and/or counseling patient: Coding Level of Care Code 46328 SUB INP/OBS CARE 3/50MIN Diagnoses YULI (acute kidney injury) N17.9 Hyperkalemia E87.5 Acute respiratory failure with hypoxia J96.01 Human metapneumovirus (hMPV) pneumonia J12.3 Chronic heart failure with preserved ejection fraction (HFpEF) I50.32 Idiopathic polyneuropathy G60.9 Parkinson's disease G20 Coronary artery disease I25.10 Hypercholesterolemia E78.00 Essential hypertension I10
--- NOTE | 2022-07-05 12:05 | Electrocardiogram Report ---
Test Reason : Blood Pressure : / mmHG Vent. Rate : 073 BPM Atrial Rate : 073 BPM P-R Int : 192 ms QRS Dur : 120 ms QT Int : 382 ms P-R-T Axes : 057 023 059 degrees QTc Int : 420 ms Normal sinus rhythm Right bundle branch block Possible Old Inferior infarct Poor R wave progression, consider anterior CO vs. lead placement vs. LVH Abnormal ECG When compared with ECG of 28-APR-2021 12:48, No significant change was found Confirmed by Vick Lindsay ([id number]) on 07/05/2022 12:05:16 PM Referred By: [facility] Confirmed By:Vick Lindsay
[2022-07-05 15:33] LABS: Albumin Level 3.6 gm/dl (3.4-5.0); Calcium 8.5 mg/dl (8.6-10.3)
[2022-07-05 15:46] LABS: BUN Creatinine Ratio 28.1 (10-20); Creatinine Clr Calc Pharmacy 39.8 ml/min; Est GFR (Non-African American) 31.9 ml/min; Phosphorus 3.4 mg/dl (2.5-4.9)
--- NOTE | 2022-07-05 17:21 | Cardiology Consultation ---
Date of Consultation July 05, 2022 Assessment & Plan (1) YULI (acute kidney injury): (2) Chronic heart failure with preserved ejection fraction (HFpEF): (3) Coronary artery disease: (4) S/P CABG x 3: (5) Human metapneumovirus (hMPV) pneumonia: Plan 77-year-old man with CAD (remote CABG), and HFpEF requiring high-dose diuretics at baseline, experienced viral pneumonia last week and became anorexic and likely experienced transient acute on chronic renal insufficiency due to ongoing diuresis. Although his creatinine has markedly improved, he has significant bronchospasm currently (presumably from his viral pneumonia) and likely has poor pulmonary reserve for any volume overload. As such, would discontinue further IV fluids and gently reintroduce diuretics to be titrated day-to-day based on his clinical exam and weight. No evidence of ongoing myocardial ischemia, ECG and enzymes benign. Volume status will likely remain tenuous, will ask Meenu Shukla PA-C to see him routinely as she follows him in heart failure clinic regularly. History of Present Illness Reason for Consultation: HFpEF & YULI on CKD assist with diuretic management Requesting Physician: Tammy Perez DO Attending Physician: Tammy Perez DO History of Present Illness 77-year-old man with CAD (CABG times 06/20/2016), HFpEF, hypertension (on 3 agents), and Parkinson's disease who was admitted 07/04/2022 from his assisted living facility ([facility]) for cough, dyspnea, and recent viral pneumonia with human metapneumovirus, found to have acute on chronic renal insufficiency. Upon admission his creatinine was found to be markedly elevated (4.17), diuretics were held and he is actually receiving IV fluids (lactated Ringer's currently). Creatinine markedly improved at 1.99. At recent baseline, he denies any chest discomfort or any other anginal symptoms, orthopnea, PND, or ankle edema. He has had a very persistent and bothersome paroxysmal nonproductive cough since his viral pneumonia last week. He has noted that his weight has actually been declining recently. His only current complaint is continued paroxysmal cough. He is followed by Dr. Rene Bender and Meenu Shukla PA-C from a cardiac standpoint as an outpatient. Allergies Allergy/AdvReac Type Severity Reaction Status Date / Time No Known Allergies Allergy Verified 07/04/22 18:49 Home Medications Medication Instructions Recorded Confirmed Type aspirin 81 mg chewable tablet 81 mg PO QAM #30 tabs 12/23/18 07/04/22 History carvedilol 6.25 mg tablet 6.25 mg PO BID #180 tabs 10/06/21 07/04/22 Rx gabapentin 300 mg capsule 300 mg PO BID #90 caps 12/29/21 07/04/22 Rx carbidopa 25 mg-levodopa 100 mg See Rx Instructions .Route 03/01/22 07/04/22 Rx tablet .COMPLEX #300 tabs pramipexole 0.5 mg tablet 0.5 mg PO TID 06/03/22 07/04/22 History acetaminophen 325 mg tablet 325 mg PO Q6H PRN TEMP >100/PAIN 07/04/22 07/04/22 History 1-4 SCALE atorvastatin 40 mg tablet 40 mg PO HS 07/04/22 07/04/22 History carbidopa ER 50 mg-levodopa 200 mg 1 tab PO .BID @ 0400 & 1600 07/04/22 07/04/22 History tablet,extended release cetirizine 10 mg tablet 10 mg PO QAM 07/04/22 07/04/22 History cholecalciferol (vitamin D3) 50 50 mcg PO QAM 07/04/22 07/04/22 History mcg (2,000 unit) capsule cimetidine 800 mg tablet 800 mg PO HS 07/04/22 07/04/22 History docusate sodium 100 mg capsule 100 mg PO HS 07/04/22 07/04/22 History fluticasone propionate 50 2 spray intranasal QAM 07/04/22 07/04/22 History mcg/actuation nasal spray,suspension (Flonase Allergy Relief) geriatric tucsimns-hhij-ajbi 1 tab PO QAM 07/04/22 07/04/22 History guaifenesin 100 mg/5 mL oral liquid 200 mg PO QID 07/04/22 07/04/22 History ipratropium 0.5 mg-albuterol 3 mg 3 ml inhalation Q2H PRN Shortness 07/04/22 07/04/22 History (2.5 mg base)/3 mL nebulization Of Breath Or Wheezing soln ondansetron HCl 4 mg tablet 4 mg PO Q6H PRN NAUSEA/VOMITING 07/04/22 07/04/22 History tamsulosin 0.4 mg capsule 0.4 mg PO HS 07/04/22 07/04/22 History tramadol 50 mg tablet 50 mg PO Q8H PRN pain 07/04/22 07/04/22 History Patient History Medical History (Updated 07/05/22 @ 17:15 by Vick Lindsay MD) Arthritis Bilateral edema of lower extremity BPH (benign prostatic hyperplasia) Chronic venous insufficiency Coronary artery disease Epigastric abdominal pain Essential hypertension High cholesterol History of ME (myocardial infarction) Hypercholesterolemia Hypertension Impaired fasting glucose Lumbar stenosis with neurogenic claudication Male erectile disorder of organic origin Mitral regurgitation Obesity Osteoarthritis of left knee Parkinson disease Raynaud's disease Seborrheic dermatitis Varicose veins of both lower extremities Surgical History (Updated 07/05/22 @ 17:15 by Vick Lindsay MD) H/O colonoscopy S/P CABG x 3 S/P cholecystectomy Vancleave teeth removed Family History Father Colitis Mother Myocardial infarction Coronary arteriosclerosis Sister Thrombophlebitis Denies family history of Ovarian cancer Prostate cancer Breast cancer Colorectal cancer Social History Smoking Status: Never smoker Second Hand Exposure: No; Hx Alcohol Use: No Hx Substance Use: No Preferred Language: Kyrgyz Communication Ability: Effective Visual Impairment: No Limitations Hearing Ability: Normal Certified Medical Transcriptionist Required: No Beliefs That Will Affect Care: None marital status: Current Living Situation: Spouse current occupational status: retired How many Children do You have: 2 Feels Safe at Home: Yes Childhood Exposure to Second-Hand Smoke: No Diet Comment: regular caffeine: Yes during the past year weight has: decreased > 10 lbs Dental Care, Regularly: Yes Physical Activity Frequency: Does not Exercise Seatbelt Use: always Sunscreen Use: Yes Assistive Devices: Cane, Glasses and Walker Physical Exam Physical Exam: No distress. BMI 47.1. BP mildly hypertensive. Pulse 74 bpm and regular. Skin: no ecchymoses or generalized lesions. HEENT: unremarkable. Neck: Jugular venous pulse one quarter the way to the angle of the jaw with markedly increased respiratory variation, no carotid bruits. Lungs: Moderately decreased breath sounds with diffuse expiratory wheezing. No accessory muscle use. Cardiac: Faint heart tones, normal S1 and S2, regular rhythm, no murmur or gallop. Abdomen: benign. Extremities: no edema, pulses intact. Neurologic: normal affect and conversation, nonfocal. Results & Data Laboratory Results High-sensitivity troponin was 8.9. Sodium 134, chloride 101, potassium 5.0, BUN 56, creatinine 1.99 (peak creatinine 4.17 yesterday). White count 10.15, hemoglobin 12.5, normal platelet count Diagnostic Findings ECG showed sinus rhythm at 73 bpm, right bundle branch block, possible old inferior infarct, poor R wave progression. Compared with 04/28/2021 ECG, no significant change. Chest x-ray showed cardiomegaly, chronic right hemidiaphragmatic elevation, blunting of costophrenic angles, no infiltrates or pulmonary edema. PG Care Time/CCT Total # of Minutes Spent Total Time Spent with Patient: Total time spent is greater than 50% in coordination of care (as documented) at patient's floor/unit and/or counseling patient: Coding Level of Care Code 85953 INT INP/OBS CARE 2/55MIN Diagnoses YULI (acute kidney injury) N17.9 Chronic heart failure with preserved ejection fraction (HFpEF) I50.32 Coronary artery disease I25.10 S/P CABG x 3 Z95.1 Human metapneumovirus (hMPV) pneumonia J12.3
[2022-07-05] MEDS: guaiFENesin 600 MG TABCR PO SCH (20:46)
[2022-07-05] MEDS: ATORVASTATIN 40 MG TAB PO SCH (20:46)
[2022-07-05] MEDS: DOCUSATE SODIUM 100 MG CAP PO SCH (20:47)
[2022-07-05] MEDS: TAMSULOSIN HCL 0.4 MG CAP PO SCH (20:47)
[2022-07-06] MEDS: CARBIDOPA/LEVODOPA 50/200MG EXT REL TAB PO SCH ×2 (04:10→16:55)
[2022-07-06] MEDS: HEPARIN SOD 5,000 UNIT/0.5 ML VIAL SQ SCH ×3 (05:55→22:08)
[2022-07-06 07:00] LABS: Hematocrit (blood only) 37.8 % (42.0-52.0); Hemoglobin 12.7 g/dl (14.0-18.0); Mean Corpuscular Hemoglobin 29.5 pg (25.0-34.0); Mean Corpuscular Hgb Conc 33.6 g/dL (32.0-36.0); Mean Corpuscular Volume 87.7 fL (80.0-100.0); Platelet Count 227 K/uL (130-400); RDW Coefficient of Variation 14.5 % (11.5-14.5); RDW Standard Deviation 46.9 fL (36.4-46.3); Red Blood Count 4.31 M/uL (4.70-6.10); White Blood Count 8.14 K/ul (4.8-10.8)
--- NOTE | 2022-07-06 07:14 | Hospitalist Progress Note ---
Date of Service July 06, 2022 Assessment & Plan (1) YULI (acute kidney injury): Plan: Baseline creatinine widely variable but is about 1.3 Admission creatinine 4.17, has downtrended to 1.4 with IV fluids (LR) x1.5 L since admission, defer IV fluids now in favor of oral intake Patient is nonoliguric Close monitoring and documentation of postvoid residuals with bladder scan while inpatient given history of BPH, continue Flomax Strict intake and output given concurrent YULI on CKD and history of HFpEF (2) Hyperkalemia: Plan: Potassium 5.8> 4.6 Low potassium diet EKG without peaked T waves (3) Acute respiratory failure with hypoxia: Plan: Suspected secondary to human metapneumovirus pneumonia No evidence on admission chest x-ray of focal consolidation suggestive of pneumonia, overt pulmonary edema Currently on 2 L nasal cannula saturating to 95%, wean oxygen as tolerated, may need oxygen on discharge Patient does have restricted air movement and wheezing on exam, continue scheduled and as needed DuGricel (4) DM2 (diabetes mellitus, type 2): Plan: New diagnosis this admission, A1c on 07/05/2022 of 7.7% Insulin basal/bolus while admitted, glycemic management consult placed, as well as clinical informatics educator Consider oral agent on discharge, will depend on renal function (5) Human metapneumovirus (hMPV) pneumonia: Plan: See above Mucinex as needed for cough, improving (6) Chronic heart failure with preserved ejection fraction (HFpEF): Plan: Chronic diastolic congestive heart failure: NYHA Class II-III symptoms Last heart failure visit 06/03/2022 with dry weight 270-275 pounds, on admission with weight of 282 however with evidence of No evidence of fluid overload on exam, chest x-ray without overt pulmonary edema Due to YULI, had been holding home diuretics (Bumex 4 mg twice daily, with as needed metolazone per outside facility) 07/06 will resume Bumex 4 mg daily, with close fluid monitoring, monitoring of renal function, appreciate cardiology consult Follow-up outpatient with Sia Shukla with [facility] heart failure clinic (7) Idiopathic polyneuropathy: Plan: History of, continue gabapentin (8) Parkinson's disease: Plan: History of, continue carbidopalevodopa, pramipexole (9) Coronary artery disease: Plan: History of, with CABG 06/20/2016 Continue aspirin, statin, Coreg (10) Hypercholesterolemia: Plan: See above (11) Essential hypertension: Plan: BP at goal for age at this time, continue to monitor Plan Heparin 5000 units every 8 hours for DVT prophylaxis Patient is DNR/DNI Low sodium, low potassium, heart healthy diet Medical with telemetry Admission and Anticipated Discharge Date Admission Date: July 04, 2022 Subjective Patient without any acute events overnight. No complaints of shortness of breath or chest pain, feels his breathing is a bit better today. No nausea or lightheadedness. Review of Systems Review of Systems: All systems reviewed & are unremarkable except as noted in Subjective Physical Exam Constitutional: WD/WN, vitals as above Respiratory: Normal respiratory effort, intermittent cough with deep breathing, expiratory wheezes heard throughout Cardiovascular: RRR, no murmur, no edema Gastrointestinal (Abdomen): normal bowel sounds, soft, nontender, no hepatosplenomegaly (Protuberant abdomen) Skin: no rashes, warm and dry Psychiatric: A+Ox3, euthymic affect Results & Data Results & Data Vital Signs (Past 12 Hours) Vital Signs Temp Pulse Pulse Pulse Resp BP Pulse Ox 07/06/22 04:02 36.6 C 67 16 138/74 93 07/05/22 21:40 70 07/05/22 22:58 36.5 C 67 18 144/79 H 94 07/05/22 20:00 07/05/22 19:54 36.6 C 76 20 155/80 H 94 07/05/22 19:24 72 16 94 O2 Del Method O2 Flow Rate 07/06/22 04:02 Nasal Cannula 2 07/05/22 21:40 07/05/22 22:58 Nasal Cannula 2 07/05/22 20:00 Nasal Cannula 2 07/05/22 19:54 Nasal Cannula 2 07/05/22 19:24 Nasal Cannula 2 PG Care Time/CCT Total # of Minutes Spent Total Time Spent with Patient: Total time spent is greater than 50% in coordination of care (as documented) at patient's floor/unit and/or counseling patient: Coding Level of Care Code 66302 SUB INP/OBS CARE 3/50MIN Diagnoses YULI (acute kidney injury) N17.9 Hyperkalemia E87.5 Acute respiratory failure with hypoxia J96.01 DM2 (diabetes mellitus, type 2) E11.9 Human metapneumovirus (hMPV) pneumonia J12.3 Chronic heart failure with preserved ejection fraction (HFpEF) I50.32 Idiopathic polyneuropathy G60.9 Parkinson's disease G20 Coronary artery disease I25.10 Hypercholesterolemia E78.00 Essential hypertension I10
[2022-07-06 07:30] LABS: BUN Creatinine Ratio 27.5 (10-20); Calcium 8.9 mg/dl (8.6-10.3); Creatinine Clr Calc Pharmacy 55.7 ml/min; Est GFR (African American) 55.6 ml/min; Potassium 4.6 mmol/L (3.5-5.1)
[2022-07-06] MEDS: ALBUT/IPRATROP 3MG/0.5MG NEB 3 ML VIAL NEB SCH ×4 (07:33→19:47)
[2022-07-06] MEDS: guaiFENesin 600 MG TABCR PO SCH ×2 (09:36→22:05)
[2022-07-06] MEDS: ASPIRIN 81 MG ECTAB PO SCH (09:36)
[2022-07-06] MEDS: carvediloL 6.25 MG TAB PO SCH ×2 (09:36→22:06)
[2022-07-06] MEDS: GABAPENTIN 100 MG CAP PO SCH ×2 (09:36→22:04)
[2022-07-06] MEDS: BENZONATATE 100 MG CAPSULE PO SCH ×3 (09:36→22:23)
[2022-07-06] MEDS: CARBIDOPA/LEVODOPA 25/100MG TAB PO SCH ×5 (09:37→22:06)
[2022-07-06] MEDS: PRAMIPEXOLE DIHYDROCHLO 0.5 MG TAB PO SCH ×3 (09:37→22:07)
[2022-07-06] MEDS: FLUTICASONE PROPIONATE NA SPR 16 GM BTL SCH (09:37)
[2022-07-06] MEDS: CETIRIZINE HCL 10 MG TABLET PO SCH (09:37)
--- NOTE | 2022-07-06 10:15 | Nephrology Progress Note ---
Date of Service July 06, 2022 Assessment & Plan (1) YULI (acute kidney injury): Plan: Non-oliguric. Notably improvement in serum creatinine consistent with prerenal YULI secondary to intravascular volume depletion related to decreased PO intake and aggressive diuretic use. Baseline creatinine variable but appears to be 1.28 mg/dL. Document strict I/Os. Repeat metabolic profile this afternoon. Medications appropriately dosed for kidney function. Hold losartan. Low potassium diet. (2) Infection due to human metapneumovirus (hMPV): (3) Chronic diastolic heart failure: Plan: Maintain even to slightly negative fluid balance. Restart diuretics PRN. Will defer diuretic management to cardiology. BP acceptable. Volume status appears replete. Clinical history consistent with predominately R heart failure. Document I/O's and daily weight. (4) BPH (benign prostatic hyperplasia): Plan: Remains on Flomax. Denies significant LUTS. Suggest documenting PVR with bladder scan while inpatient. Admission and Anticipated Discharge Date Admission Date: July 04, 2022 Subjective No acute events overnight. Cough persists. Kush reports some persistent chest congestion and difficulty taking a deep breath. Denies dyspnea at rest. Some fatigue. Overall, feels reasonably well. Denies notable fluid retention or edema. No chest pain or palpitations. Review of Systems Review of Systems: All systems reviewed & are unremarkable except as noted in HPI & below Physical Exam Constitutional: well developed and + morbidly obese; no acute distress Eyes: no scleral abnormality and no corneal abnormality ENMT: Mouth: no oral mucosal abnormality and oral mucous membranes not dry Neck: normal visual inspection, trachea midline and + thick neck Respiratory: normal respiratory effort Auscultation: lungs clear to auscultation bilaterally Cardiovascular: Rate/Rhythm: regular rate Heart Sounds: normal S1 and normal S2 Extremities: + edema Musculoskeletal: Extremities: no cyanosis and no clubbing Skin: normal turgor; no lesions and no jaundice Neurologic: Motor/Sensory: no tremor and no asterixis Psychiatric: Orientation: alert and oriented x 3 Results & Data Vital Signs (Past 12 Hours) Vital Signs Temp Pulse Pulse Resp BP Pulse Ox O2 Del Method 07/06/22 09:42 Nasal Cannula 07/06/22 07:38 36.6 C 63 20 129/72 93 Nasal Cannula 07/06/22 07:36 61 16 95 Nasal Cannula 07/06/22 06:45 66 07/06/22 04:02 36.6 C 67 16 138/74 93 Nasal Cannula 07/05/22 22:58 36.5 C 67 18 144/79 H 94 Nasal Cannula O2 Flow Rate 07/06/22 09:42 1 07/06/22 07:38 2 07/06/22 07:36 2 07/06/22 06:45 07/06/22 04:02 2 07/05/22 22:58 2 Laboratory Results Laboratory Results - last 24 hr 07/05/22 07/06/22 07/06/22 14:44 06:42 06:42 WBC 8.14 RBC 4.31 L Hgb 12.7 L Hct 37.8 L MCV 87.7 MCH 29.5 MCHC 33.6 RDW Std Deviation 46.9 H RDW Coeff of Porsha 14.5 Plt Count 227 MPV 9.0 L Sodium 134 L 134 L Potassium 5.0 4.6 Chloride 101 102 Carbon Dioxide 28 25 Anion Gap 5 7 BUN 56 H 39 H Creatinine 1.99 H D 1.42 H D Est Cr Clr Drug Dosing 39.8 55.7 Est GFR ( Amer) 37.0 55.6 Est GFR (Non-Af Amer) 31.9 48.0 BUN/Creatinine Ratio 28.1 H 27.5 H Glucose 137 H 117 H Calcium 8.5 L 8.9 Phosphorus 3.4 D Albumin 3.6 PG Care Time/CCT Total # of Minutes Spent Total Time Spent with Patient: Total time spent is greater than 50% in coordination of care (as documented) at patient's floor/unit and/or counseling patient: Coding Level of Care Code 02360 SUB INP/OBS CARE 3/50MIN Diagnoses YULI (acute kidney injury) N17.9 Infection due to human metapneumovirus (hMPV) B34.8 Chronic diastolic heart failure I50.32 BPH (benign prostatic hyperplasia) N40.0
[2022-07-06 11:13] LABS: Urea Nitrogen, Random Urine 568 mg/dL
[2022-07-06] MEDS ORDERED: DEXTROSE 50% 50 ML SYRINGE IV PRN (12:20)
[2022-07-06] MEDS ORDERED: CARBOHYDRATES FOR HYPOGLYCEMIA PO PRN (12:20)
[2022-07-06] MEDS ORDERED: GLUCOSE 40% GEL 15 GM TUBE PO PRN (12:20)
[2022-07-06] MEDS ORDERED: GLUCOSE 10 TAB/TUBE PO PRN (12:20)
[2022-07-06] MEDS ORDERED: GLUCAGON FOR INJ 1 MG VIAL SQ PRN (12:20)
--- NOTE | 2022-07-06 12:40 | Cardiology Progress Note ---
Date of Service July 06, 2022 Assessment & Plan (1) YULI (acute kidney injury): (2) Chronic heart failure with preserved ejection fraction (HFpEF): (3) Coronary artery disease: (4) S/P CABG x 3: (5) Human metapneumovirus (hMPV) pneumonia: Plan Still with some degree of bronchospasm on exam which is likely due to his recent viral pneumonia. Believe he is likely euvolemic, mild neck vein distention is probably baseline for him. His recent diuretic regimen was bumetanide 4 mg twice daily and metolazone 5 mg twice daily, but as noted in the face of anorexia this likely resulted in overdiuresis with acute on chronic renal insufficiency. Would restart on bumetanide 4 mg once daily currently, with further dose adjustments based on reassessment of his day-to-day volume status. Admission and Anticipated Discharge Date Admission Date: July 04, 2022 Subjective Uneventful night, he denies dyspnea at rest and is able to lie flat. No chest pain, palpitations, or lightheadedness. Telemetry showed sinus rhythm in the 60-80 bpm range. Input/output +345 mL. Weight does not seem reliable (bed scale). Physical Exam Physical Exam: No distress. Weight down 4 pounds overnight (bed scale) BP normotensive. Pulse 70 bpm and regular. Skin: no ecchymoses or generalized lesions. HEENT: unremarkable. Neck: Jugular venous pulse one half way to the angle of the jaw with markedly increased respiratory variation, no carotid bruits. Lungs: Moderately decreased breath sounds with diffuse expiratory wheezing. No accessory muscle use. Cardiac: Faint heart tones, normal S1 and S2, regular rhythm, no murmur or gallop. Abdomen: benign. Extremities: no edema, pulses intact. Neurologic: normal affect and conversation, nonfocal. Results & Data Laboratory Results Labs today with sodium 134, potassium 4.6, BUN 39, creatinine 1.42 (1.99 yesterday) PG Care Time/CCT Total # of Minutes Spent Total Time Spent with Patient: Total time spent is greater than 50% in coordination of care (as documented) at patient's floor/unit and/or counseling patient: Coding Level of Care Code 25059 SUB INP/OBS CARE 2/35MIN Diagnoses YULI (acute kidney injury) N17.9 Chronic heart failure with preserved ejection fraction (HFpEF) I50.32 Coronary artery disease I25.10 S/P CABG x 3 Z95.1 Human metapneumovirus (hMPV) pneumonia J12.3
[2022-07-06] MEDS ORDERED: BUMETANIDE 1 MG TAB PO ONE (14:09)
[2022-07-06] MEDS: INSULIN ASPART PER UNIT CHARGE SC SCH ×2 (16:50→22:07)
[2022-07-06] MEDS: LANTUS PER UNIT CHARGE SQ SCH (22:03)
[2022-07-06] MEDS: ATORVASTATIN 40 MG TAB PO SCH (22:05)
[2022-07-06] MEDS: TAMSULOSIN HCL 0.4 MG CAP PO SCH (22:07)
[2022-07-06] MEDS: DOCUSATE SODIUM 100 MG CAP PO SCH (22:23)
[2022-07-07] MEDS: HEPARIN SOD 5,000 UNIT/0.5 ML VIAL SQ SCH ×3 (04:55→21:55)
[2022-07-07] MEDS: CARBIDOPA/LEVODOPA 50/200MG EXT REL TAB PO SCH ×2 (04:56→17:13)
[2022-07-07] MEDS: ALBUT/IPRATROP 3MG/0.5MG NEB 3 ML VIAL NEB SCH ×4 (07:04→19:26)
[2022-07-07 08:21] LABS: Hematocrit (blood only) 35.6 % (42.0-52.0); Hemoglobin 12.2 g/dl (14.0-18.0); Mean Corpuscular Hemoglobin 29.4 pg (25.0-34.0); Mean Corpuscular Hgb Conc 34.3 g/dL (32.0-36.0); Mean Corpuscular Volume 85.8 fL (80.0-100.0); Mean Platelet Volume 9.4 fL (9.4-12.4); Platelet Count 237 K/uL (130-400); RDW Coefficient of Variation 14.3 % (11.5-14.5); RDW Standard Deviation 44.1 fL (36.4-46.3); Red Blood Count 4.15 M/uL (4.70-6.10); White Blood Count 8.28 K/ul (4.8-10.8)
[2022-07-07] MEDS: INSULIN ASPART PER UNIT CHARGE SC SCH ×4 (08:38→22:04)
[2022-07-07] MEDS: LANTUS PER UNIT CHARGE SQ SCH ×2 (08:45→21:55)
[2022-07-07] MEDS: GABAPENTIN 100 MG CAP PO SCH ×2 (08:46→20:04)
[2022-07-07] MEDS: ASPIRIN 81 MG ECTAB PO SCH (08:46)
[2022-07-07] MEDS: BUMETANIDE 1 MG TAB PO SCH (08:46)
[2022-07-07] MEDS: CETIRIZINE HCL 10 MG TABLET PO SCH (08:46)
[2022-07-07] MEDS: PRAMIPEXOLE DIHYDROCHLO 0.5 MG TAB PO SCH ×3 (08:47→20:04)
[2022-07-07] MEDS: carvediloL 6.25 MG TAB PO SCH ×2 (08:47→20:05)
[2022-07-07] MEDS: BENZONATATE 100 MG CAPSULE PO SCH ×3 (08:47→20:03)
[2022-07-07] MEDS: CARBIDOPA/LEVODOPA 25/100MG TAB PO SCH ×5 (08:47→20:05)
[2022-07-07] MEDS: guaiFENesin 600 MG TABCR PO SCH ×2 (08:47→20:04)
[2022-07-07] MEDS: FLUTICASONE PROPIONATE NA SPR 16 GM BTL SCH (08:50)
[2022-07-07 08:51] LABS: Calcium 8.9 mg/dl (8.6-10.3); Creatinine Clr Calc Pharmacy 57.3 ml/min; Est GFR (African American) 57.6 ml/min; Est GFR (Non-African American) 49.7 ml/min; Potassium 4.1 mmol/L (3.5-5.1)
--- NOTE | 2022-07-07 12:10 | Nephrology Progress Note ---
Date of Service July 07, 2022 Assessment & Plan (1) YULI (acute kidney injury): Plan: Non-oliguric. Notably improvement in serum creatinine consistent with prerenal YULI secondary to intravascular volume depletion related to decreased PO intake and aggressive diuretic use. Diuretics restarted by cardiology with adjustment in dose and Kush is tolerating therapy well. Baseline creatinine variable but appears to be 1.28 mg/dL. Medications appropriately dosed for kidney function. It would be reasonable to restart losartan now. Low potassium diet. Follow up with me in the nephrology clinic within 2 weeks of discharge. (2) Infection due to human metapneumovirus (hMPV): (3) Chronic diastolic heart failure: Plan: Maintain even to slightly negative fluid balance. Restart diuretics PRN. Will defer diuretic management to cardiology. BP acceptable. Volume status appears replete. Clinical history consistent with predominately R heart failure. Document I/O's and daily weight. (4) BPH (benign prostatic hyperplasia): Plan: Remains on Flomax. Denies significant LUTS. Suggest documenting PVR with bladder scan while inpatient. Admission and Anticipated Discharge Date Admission Date: July 04, 2022 Subjective No acute events overnight. No complaints this AM. Dyspnea improving. Cough improving. No fevers or chills. No chest pain or palpitations. Denies notable fluid retention. Review of Systems Review of Systems: All systems reviewed & are unremarkable except as noted in HPI & below Physical Exam Constitutional: well developed and + morbidly obese; no acute distress Eyes: no scleral abnormality and no corneal abnormality Neck: normal visual inspection, trachea midline and + thick neck Respiratory: normal respiratory effort Auscultation: lungs clear to auscultation bilaterally Cardiovascular: Rate/Rhythm: regular rate Heart Sounds: normal S1 and normal S2 Extremities: + edema Musculoskeletal: Extremities: no cyanosis and no clubbing Skin: normal turgor; no lesions and no jaundice Neurologic: Motor/Sensory: no tremor and no asterixis Psychiatric: Orientation: alert and oriented x 3 Results & Data Vital Signs (Past 12 Hours) Vital Signs Temp Pulse Pulse Resp BP BP Pulse Ox 07/07/22 11:55 36.8 C 67 18 127/79 94 07/07/22 11:05 64 18 96 07/07/22 08:56 07/07/22 08:04 36.5 C 65 20 153/80 H 95 07/07/22 06:45 64 07/07/22 07:04 68 18 95 07/07/22 04:21 36.6 C 66 18 162/80 H 96 O2 Del Method O2 Flow Rate 07/07/22 11:55 Nasal Cannula 2 07/07/22 11:05 Nasal Cannula 2 07/07/22 08:56 Nasal Cannula 2 07/07/22 08:04 Nasal Cannula 2 07/07/22 06:45 07/07/22 07:04 Nasal Cannula 2 07/07/22 04:21 Nasal Cannula 2 Laboratory Results Laboratory Results - last 24 hr 07/06/22 07/06/22 07/07/22 16:23 20:14 07:44 WBC 8.28 RBC 4.15 L Hgb 12.2 L Hct 35.6 L MCV 85.8 MCH 29.4 MCHC 34.3 RDW Std Deviation 44.1 RDW Coeff of Porsha 14.3 Plt Count 237 MPV 9.4 Sodium Potassium Chloride Carbon Dioxide Anion Gap BUN Creatinine Est Cr Clr Drug Dosing Est GFR ( Amer) Est GFR (Non-Af Amer) BUN/Creatinine Ratio Glucose POC Glucose 131 H 132 H Calcium 07/07/22 07/07/22 07:44 11:43 WBC RBC Hgb Hct MCV MCH MCHC RDW Std Deviation RDW Coeff of Porsha Plt Count MPV Sodium 134 L Potassium 4.1 Chloride 100 Carbon Dioxide 26 Anion Gap 8 BUN 40 H Creatinine 1.38 Est Cr Clr Drug Dosing 57.3 Est GFR ( Amer) 57.6 Est GFR (Non-Af Amer) 49.7 BUN/Creatinine Ratio 29.0 H Glucose 121 H POC Glucose 115 H Calcium 8.9 PG Care Time/CCT Total # of Minutes Spent Total Time Spent with Patient: Total time spent is greater than 50% in coordination of care (as documented) at patient's floor/unit and/or counseling patient: Coding Level of Care Code 34443 SUB INP/OBS CARE 3/50MIN Diagnoses YULI (acute kidney injury) N17.9 Infection due to human metapneumovirus (hMPV) B34.8 Chronic diastolic heart failure I50.32 BPH (benign prostatic hyperplasia) N40.0
--- NOTE | 2022-07-07 17:16 | Cardiology Progress Note ---
Date of Service July 07, 2022 Assessment & Plan (1) Chronic heart failure with preserved ejection fraction (HFpEF): (2) YULI (acute kidney injury): (3) Coronary artery disease: (4) S/P CABG x 3: (5) Human metapneumovirus (hMPV) pneumonia: Plan Steadily improving clinically. Mild persistent bronchospasm likely secondary to prior viral pneumonia. Renal function continues to improve. Appears euvolemic on bumetanide 4 mg once daily, continue this dose with further adjustments in diuretic regimen based on daily weight and physical exam. Meenu Shukla PA-C, heart failure clinic, will assist in coordinating his transition to outpatient care. Admission and Anticipated Discharge Date Admission Date: July 04, 2022 Subjective Slept well, uneventful night. No chest pain, dyspnea, or lightheadedness. Still with nonproductive cough. Telemetry with sinus rhythm in the 70-80 bpm range. Weight unchanged (bed scale). Input/output -1055 Physical Exam Physical Exam: No distress. Weight unchanged (bed scale) BP normotensive. Pulse 70 bpm and regular. Skin: no ecchymoses or generalized lesions. HEENT: unremarkable. Neck: Jugular venous pulse one half way to the angle of the jaw with markedly increased respiratory variation, no carotid bruits. Lungs: Moderately decreased breath sounds with soft expiratory wheezing. No accessory muscle use. Cardiac: Faint heart tones, normal S1 and S2, regular rhythm, no murmur or gallop. Abdomen: benign. Extremities: no edema, pulses intact. Neurologic: normal affect and conversation, nonfocal. Results & Data Laboratory Results Sodium 134, potassium 4.1, BUN 40, creatinine 1.38 (1.42 yesterday). PG Care Time/CCT Total # of Minutes Spent Total Time Spent with Patient: Total time spent is greater than 50% in coordination of care (as documented) at patient's floor/unit and/or counseling patient: Coding Level of Care Code 58731 SUB INP/OBS CARE /25MIN Diagnoses Chronic heart failure with preserved ejection fraction (HFpEF) I50.32 YULI (acute kidney injury) N17.9 Coronary artery disease I25.10 S/P CABG x 3 Z95.1 Human metapneumovirus (hMPV) pneumonia J12.3
--- NOTE | 2022-07-07 17:49 | Hospitalist Progress Note ---
Date of Service July 07, 2022 Assessment & Plan (1) YULI (acute kidney injury): Plan: Baseline creatinine widely variable but is about 1.3 Admission creatinine 4.17, has downtrended to 1.38 IV fluids discontinued On p.o. fluid Creatinine continues to be stable Patient is nonoliguric Close monitoring and documentation of postvoid residuals with bladder scan while inpatient given history of BPH, continue Flomax Strict intake and output given concurrent YULI on CKD and history of HFpEF (2) Hyperkalemia: Plan: Potassium 5.8> 4.6--> 4.1 Low potassium diet EKG without peaked T waves (3) Acute respiratory failure with hypoxia: Plan: Suspected secondary to human metapneumovirus pneumonia No evidence on admission chest x-ray of focal consolidation suggestive of pneumonia, overt pulmonary edema Currently on 2 L nasal cannula saturating to 95%, wean oxygen as tolerated, may need oxygen on discharge Patient does have restricted air movement and wheezing on exam, continue scheduled and as needed DuoNebs (4) DM2 (diabetes mellitus, type 2): Plan: New diagnosis this admission, A1c on 07/05/2022 of 7.7% Insulin basal/bolus while admitted, glycemic management consult placed, as well as patient educator Consider oral agent on discharge, will depend on renal function (5) Human metapneumovirus (hMPV) pneumonia: Plan: See above Mucinex as needed for cough, improving (6) Chronic heart failure with preserved ejection fraction (HFpEF): Plan: Chronic diastolic congestive heart failure: NYHA Class II-III symptoms Last heart failure visit 06/03/2022 with dry weight 270-275 pounds, on admission with weight of 282 however with evidence of No evidence of fluid overload on exam, chest x-ray without overt pulmonary edema Due to YULI, had been holding home diuretics (Bumex 4 mg twice daily, with as needed metolazone per outside facility) Resumed Bumex 4 mg daily on 07/06, with close fluid monitoring, monitoring of renal function, appreciate cardiology consult Creatinine stable Follow-up outpatient with Sia Shukla with [facility] heart failure clinic (7) Idiopathic polyneuropathy: Plan: History of, continue gabapentin (8) Parkinson's disease: Plan: History of, continue carbidopalevodopa, pramipexole (9) Coronary artery disease: Plan: History of, with CABG 06/20/2016 Continue aspirin, statin, Coreg (10) Hypercholesterolemia: Plan: See above (11) Essential hypertension: Plan: BP at goal for age at this time, continue to monitor Plan Heparin 5000 units every 8 hours for DVT prophylaxis Patient is DNR/DNI Low sodium, low potassium, heart healthy diet Medical with telemetry Likely discharge tomorrow Admission and Anticipated Discharge Date Admission Date: July 04, 2022 Subjective Patient feels well today. Denies chest pain or shortness of breath. Review of Systems Review of Systems: All systems reviewed & are unremarkable except as noted in Subjective Physical Exam Physical Exam: General: Awake, conversant Heart: S1, S2/regular rate and rhythm, no murmur rubs or gallops Lungs: Clear to auscultation bilaterally. Normal effort Abdomen: Soft/nontender/nondistended. No hepatosplenomegaly Extremities: No clubbing/cyanosis. No edema Behavior: Appropriate, cooperative Results & Data Results & Data Vital Signs (Past 12 Hours) Vital Signs Temp Pulse Pulse Resp BP Pulse Ox O2 Del Method 07/07/22 16:31 36.4 C L 69 18 118/80 95 Nasal Cannula 07/07/22 14:19 67 07/07/22 15:18 78 18 95 Nasal Cannula 07/07/22 14:28 95 07/07/22 11:55 36.8 C 67 18 127/79 94 Nasal Cannula 07/07/22 11:05 64 18 96 Nasal Cannula 07/07/22 08:56 Nasal Cannula 07/07/22 08:04 36.5 C 65 20 153/80 H 95 Nasal Cannula 07/07/22 06:45 64 07/07/22 07:04 68 18 95 Nasal Cannula O2 Flow Rate 07/07/22 16:31 2 07/07/22 14:19 07/07/22 15:18 2 07/07/22 14:28 07/07/22 11:55 2 07/07/22 11:05 2 07/07/22 08:56 2 07/07/22 08:04 2 07/07/22 06:45 07/07/22 07:04 2 Laboratory Results Abnormal lab results 07/06/22 07/07/22 07/07/22 Range/Units 20:14 07:44 07:44 RBC 4.15 L (4.70-6.10) M/uL Hgb 12.2 L (14.0-18.0) g/dl Hct 35.6 L (42.0-52.0) % Sodium 134 L (136-145) mmol/L BUN 40 H (6-23) mg/dl BUN/Creatinine Ratio 29.0 H (10-20) Glucose 121 H (70-99(Fasting)) mg/dl POC Glucose 132 H (70-99) mg/dl 07/07/22 07/07/22 Range/Units 11:43 16:40 RBC (4.70-6.10) M/uL Hgb (14.0-18.0) g/dl Hct (42.0-52.0) % Sodium (136-145) mmol/L BUN (6-23) mg/dl BUN/Creatinine Ratio (10-20) Glucose (70-99(Fasting)) mg/dl POC Glucose 115 H 121 H (70-99) mg/dl PG Care Time/CCT Total # of Minutes Spent Total Time Spent with Patient: Total time spent is greater than 50% in coordination of care (as documented) at patient's floor/unit and/or counseling patient: Coding Level of Care Code 47464 SUB INP/OBS CARE 2/35MIN Diagnoses YULI (acute kidney injury) N17.9 Hyperkalemia E87.5 Acute respiratory failure with hypoxia J96.01 DM2 (diabetes mellitus, type 2) E11.9 Human metapneumovirus (hMPV) pneumonia J12.3 Chronic heart failure with preserved ejection fraction (HFpEF) I50.32 Idiopathic polyneuropathy G60.9 Parkinson's disease G20 Coronary artery disease I25.10 Hypercholesterolemia E78.00 Essential hypertension I10
[2022-07-07] MEDS: DOCUSATE SODIUM 100 MG CAP PO SCH (20:03)
[2022-07-07] MEDS: TAMSULOSIN HCL 0.4 MG CAP PO SCH (20:03)
[2022-07-07] MEDS: ATORVASTATIN 40 MG TAB PO SCH (20:04)
[2022-07-08] MEDS: HEPARIN SOD 5,000 UNIT/0.5 ML VIAL SQ SCH ×2 (05:20→13:07)
[2022-07-08] MEDS: CARBIDOPA/LEVODOPA 50/200MG EXT REL TAB PO SCH (05:21)
[2022-07-08] MEDS: ALBUT/IPRATROP 3MG/0.5MG NEB 3 ML VIAL NEB SCH ×3 (07:05→15:02)
[2022-07-08] MEDS: INSULIN ASPART PER UNIT CHARGE SC SCH ×2 (08:10→13:07)
[2022-07-08] MEDS: CARBIDOPA/LEVODOPA 25/100MG TAB PO SCH ×3 (09:05→13:07)
[2022-07-08] MEDS: PRAMIPEXOLE DIHYDROCHLO 0.5 MG TAB PO SCH ×2 (09:22→13:07)
[2022-07-08] MEDS: CETIRIZINE HCL 10 MG TABLET PO SCH (09:23)
[2022-07-08] MEDS: carvediloL 6.25 MG TAB PO SCH (09:23)
[2022-07-08] MEDS: BUMETANIDE 1 MG TAB PO SCH (09:23)
[2022-07-08] MEDS: ASPIRIN 81 MG ECTAB PO SCH (09:23)
[2022-07-08] MEDS: guaiFENesin 600 MG TABCR PO SCH (09:24)
[2022-07-08] MEDS: FLUTICASONE PROPIONATE NA SPR 16 GM BTL SCH (09:24)
[2022-07-08] MEDS: LANTUS PER UNIT CHARGE SQ SCH (09:24)
[2022-07-08] MEDS: GABAPENTIN 100 MG CAP PO SCH (09:25)
[2022-07-08] MEDS: BENZONATATE 100 MG CAPSULE PO SCH ×2 (09:29→13:07)
[2022-07-08 09:30] LABS: BUN Creatinine Ratio 36.6 (10-20); Calcium 9.3 mg/dl (8.6-10.3); Creatinine Clr Calc Pharmacy 59.6 ml/min; Est GFR (African American) 61.3 ml/min; Est GFR (Non-African American) 52.9 ml/min; Potassium 3.7 mmol/L (3.5-5.1)
--- NOTE | 2022-07-08 09:34 | Cardiology Progress Note ---
Date of Service July 08, 2022 Assessment & Plan (1) Chronic heart failure with preserved ejection fraction (HFpEF): (2) YULI (acute kidney injury): (3) Coronary artery disease: (4) S/P CABG x 3: (5) Human metapneumovirus (hMPV) pneumonia: Plan Clinically stable. Steadily improving clinically. Renal function back at baseline and stable. Appears euvolemic on bumetanide 4 mg once daily, continue this dose with further adjustments in diuretic regimen based on daily weight and physical exam. Meenu Shukla PA-C, heart failure clinic, will assist in coordinating his transition to outpatient care. Admission and Anticipated Discharge Date Admission Date: July 04, 2022 Subjective Slept well, no complaints currently. Nonproductive cough is improving sign ificantly. No chest pain, dyspnea, or palpitations. Wonders if he is going home today. Weight down. Input/output -1880 mL. Telemetry showed sinus rhythm at 60-80 bpm, first-degree AV block, int erventricular conduction delay, and PACs. Physical Exam Physical Exam: No distress. Weight unchanged (bed scale) BP normotensive. Pulse 70 bpm and regular. Skin: no ecchymoses or generalized lesions. HEENT: unremarkable. Neck: Jugular venous pulse one half way to the angle of the jaw with markedly in creased respiratory variation, no carotid bruits. Lungs: Mildly decreased breath sounds without obvious wheezing today. No accessory muscle use. Cardiac: Faint heart tones, normal S1 and S2, regular rhythm, no murmur or gallop. Abdomen: benign. Extremities: no edema, pulses intact. Neurologic: normal affect and conversation, nonfocal. Results & Data Laboratory Results Sodium 134, chloride 100, BUN 48, creatinine 1.31 (1.38 yesterday). PG Care Time/CCT Total # of Minutes Spent Total Time Spent with Patient: Total time spent is greater than 50% in coordination of care (as documented) at patient's floor/unit and/or counseling patient: Coding Level of Care Code 86698 SUB INP/OBS CARE 1/25MIN Diagnoses Chronic heart failure with preserved ejection fraction (HFpEF) I50.32 YULI (acute kidney injury) N17.9 Coronary artery disease I25.10 S/P CABG x 3 Z95.1 Human metapneumovirus (hMPV) pneumonia J12.3
--- NOTE | 2022-07-08 10:26 | Nephrology Progress Note ---
Date of Service July 08, 2022 Assessment & Plan (1) YULI (acute kidney injury): Plan: Consistent with prerenal YULI secondary to intravascular volume depletion related to decreased PO intake and aggressive diuretic use. Creatinine improved to baseline. Volume status acceptable. Medications appropriately dosed for kidney function. It would be reasonable to restart losartan now. Follow up with me in the nephrology clinic within 2 weeks of discharge. (2) Infection due to human metapneumovirus (hMPV): (3) Chronic diastolic heart failure: Plan: Management per cardiology. Has been off RAAS blockade due to history of kidney dysfunction. (4) BPH (benign prostatic hyperplasia): Plan: Remains on Flomax. Denies significant LUTS. Admission and Anticipated Discharge Date Admission Date: July 04, 2022 Subjective No acute events overnight. No complaints this AM. Out of bed to chair. Review of Systems Review of Systems: All systems reviewed & are unremarkable except as noted in HPI & below Physical Exam Constitutional: well developed and + morbidly obese; no acute distress Eyes: no scleral abnormality and no corneal abnormality ENMT: Mouth: no oral mucosal abnormality and oral mucous membranes not dry Neck: normal visual inspection, trachea midline and + thick neck Respiratory: normal respiratory effort Auscultation: lungs clear to auscultation bilaterally Cardiovascular: Rate/Rhythm: regular rate Heart Sounds: normal S1 and normal S2 Extremities: + edema Musculoskeletal: Extremities: no cyanosis and no clubbing Skin: normal turgor; no lesions and no jaundice Neurologic: Motor/Sensory: no tremor and no asterixis Psychiatric: Orientation: alert and oriented x 3 Results & Data Vital Signs (Past 12 Hours) Vital Signs Temp Pulse Pulse Resp BP Pulse Ox O2 Del Method 07/08/22 07:25 66 07/08/22 07:13 36.6 C 63 18 137/78 92 Room Air 07/08/22 07:06 63 16 93 Room Air 07/08/22 04:00 37.0 C 65 20 122/69 94 Room Air 07/07/22 22:20 76 07/07/22 23:45 36.6 C 66 18 138/79 94 Room Air Laboratory Results Laboratory Results - last 24 hr 07/07/22 07/07/22 07/07/22 07:28 11:43 16:40 Sodium Potassium Chloride Carbon Dioxide Anion Gap BUN Creatinine Est Cr Clr Drug Dosing Est GFR ( Amer) Est GFR (Non-Af Amer) BUN/Creatinine Ratio Glucose POC Glucose 113 H 115 H 121 H Calcium 07/07/22 07/08/22 07/08/22 20:16 07:35 08:39 Sodium 134 L Potassium 3.7 Chloride 100 Carbon Dioxide 24 Anion Gap 10 BUN 48 H Creatinine 1.31 Est Cr Clr Drug Dosing 59.6 Est GFR ( Amer) 61.3 Est GFR (Non-Af Amer) 52.9 BUN/Creatinine Ratio 36.6 H Glucose 186 H POC Glucose 138 H 127 H Calcium 9.3 PG Care Time/CCT Total # of Minutes Spent Total Time Spent with Patient: Total time spent is greater than 50% in coordination of care (as documented) at patient's floor/unit and/or counseling patient: Coding Level of Care Code 73645 SUB INP/OBS CARE 3/50MIN Diagnoses YULI (acute kidney injury) N17.9 Infection due to human metapneumovirus (hMPV) B34.8 Chronic diastolic heart failure I50.32 BPH (benign prostatic hyperplasia) N40.0
--- NOTE | 2022-07-08 11:23 | Discharge Summary ---
Date of Service July 08, 2022 Admission HPI Per Admitting Provider Kush Randle is a 77yo male resident of [facility] with history of HTN, HLP, CAD s/p CABG x 3V in July 2012, HFpEF with EF 60-65% per echocardiogram 06/30/22 and Parkinson's disease presenting with abnormal renal labs. Patient was diagnosed with URI secondary to Human Metapneumovirus last week. He has had a persistent dry cough as well as some shortness of breath ongoing for the last two weeks. He had bloodwork performed today which revealed worsening renal function, therefore, patient was instructed to come to the ER. He denies fever, chills, chest pain, abdominal pain, nausea, vomiting, diarrhea or constipation. Denies orthopnea or worsenign edema. He reports that he is urinating without difficulty. States that his urine is normal color, no foam or blood. No suprapubic pain or flank pain. He has been eating and drinking less over the last two weeks due to feeling ill from his URI. Patient was on Losartan as well as Metolazone, Bumex and KCl. He has been on oxygen at [facility] for the last two days - prior to this, has not been on O2. In the ER he is afebrile, HD stable. Adequate oxygenation on 2L NC ER Course: NSS x 500mL Albuterol neb 3mL Admission Exam Per Admitting Provider General: patient resting comfortably, NAD, non-toxic in appearance, AA&O x 4, constant episodes of dry cough with speaking, NC in place Skin: warm, dry, intact, no rashes or lesions HEENT: NC/AT, PERRL, EOMI, anicteric sclera, conjunctiva without injection, external ear normal to inspection and nontender, nares patent, slightly dry mucus membranes, dentition intact, no oropharyngeal lesions, neck supple, trachea midline, no LAD, no thyromegaly, no JVD Heart: +S1/S2, regular, no m/r/g Lungs: equal air entry bilaterally, faint end-expiratory wheezing L > R Abd: +BS, soft, NT/ND, no masses/organomegaly/ascites Ext: warm, 2+ pulses in UE/LE bilaterally, no clubbing/cyanosis, 1+ pitting edema of bilateral LE equal Neuro: nonfocal, patient AA&O x 4, speech intact, no facial droop, moving all extremities on command with equal strength 5/5 Principal Diagnosis Acute kidney injury on CKD secondary to overdiuresis Discharge Exam General: Awake, conversant Heart: S1, S2/regular rate and rhythm, no murmur rubs or gallops Lungs: Clear to auscultation bilaterally. Normal effort Abdomen: Soft/nontender/nondistended. No hepatosplenomegaly Extremities: No clubbing/cyanosis. No edema Behavior: Appropriate, cooperative Discharge Data Allergies Allergy/AdvReac Type Severity Reaction Status Date / Time No Known Allergies Allergy Verified 07/04/22 18:49 Consultations 07/04/22 17:58 ED Decision to Admit Stat 07/05/22 07:35 Consult Nephrology Routine 07/05/22 11:41 Consult Cardiology Routine Ordered Studies 07/04/22 17:19 CT abd pelvis wo con Stat Diabetes Follow up Diabetes Follow-up Needed for Newly Diagnosed Diabetes Hospital Course (1) YULI (acute kidney injury): Baseline creatinine widely variable but is about 1.3 Admission creatinine 4.17, has downtrended to 1.3 IV fluids discontinued On p.o. fluid Creatinine continues to be stable Patient is nonoliguric Close monitoring and documentation of postvoid residuals with bladder scan while inpatient given history of BPH, continue Flomax Discharge on current dose of Bumex (2) Hyperkalemia: Potassium 5.8> 4.6--> 3.7 Low potassium diet EKG without peaked T waves (3) Acute respiratory failure with hypoxia: Suspected secondary to human metapneumovirus pneumonia No evidence on admission chest x-ray of focal consolidation suggestive of pneumonia, overt pulmonary edema Currently on 2 L nasal cannula saturating to 95%, wean oxygen as tolerated, may need oxygen on discharge Patient does have restricted air movement and wheezing on exam, continue scheduled and as needed DuGricel (4) DM2 (diabetes mellitus, type 2): New diagnosis this admission, A1c on 07/05/2022 of 7.7% Insulin basal/bolus while admitted, glycemic management consult placed, as well as nurse informatics educator (5) Human metapneumovirus (hMPV) pneumonia: See above Mucinex as needed for cough, improving (6) Chronic heart failure with preserved ejection fraction (HFpEF): Chronic diastolic congestive heart failure: NYHA Class II-III symptoms Last heart failure visit 06/03/2022 with dry weight 270-275 pounds, on admission with weight of 282 however with evidence of No evidence of fluid overload on exam, chest x-ray without overt pulmonary edema Due to YULI, had been holding home diuretics (Bumex 4 mg twice daily, with as needed metolazone per outside facility) Resumed Bumex 4 mg daily on 07/06, with close fluid monitoring, monitoring of renal function, appreciate cardiology consult Creatinine stable Follow-up outpatient with Sia Shukla with [facility] heart failure clinic Discharge on current dose of Bumex (7) Idiopathic polyneuropathy: History of, continue gabapentin (8) Parkinson's disease: History of, continue carbidopalevodopa, pramipexole (9) Coronary artery disease: History of, with CABG 06/20/2016 Continue aspirin, statin, Coreg (10) Hypercholesterolemia: See above (11) Essential hypertension: BP at goal for age at this time, continue to monitor Plan Heparin 5000 units every 8 hours for DVT prophylaxis Patient is DNR/DNI Low sodium, low potassium, heart healthy diet Medical with telemetry Discharge today Total Time Total Time Spent Total Time Spent (In Minutes): 35 Discharge Plan Discharge Items Patient Disposition: Transfer [facility] Reason For Visit: YULI ON CKD, COUGH Discharge Diagnosis: acute on chronic kidney disease Condition on Discharge: Fair Activity: Resume your previous activity Non-emergency contact: Primary Care Provider Call non-emergency contact if: you have any medication questions and your symptoms worsen Follow-up/Referrals: [facility] [Primary Care Provider] - Sia Shukla PA-C [Physician Merchandise Supervisor] - 07/18/22 10:30 am Diet: Heart Healthy and Low Sodium (2gm) Addtl Attending Provider Instructions: Advised to follow-up with PCP at the [facility] in 3 days Advised to follow-up at the CHF clinic in 1 week Pending Studies at Discharge: No Stand-Alone Forms: My [facility] Skilled Items Patient informed of condition?: Yes DNR: Yes Discharge Level of Care: Skilled Communicable Disease: No Discharge Prognosis: Stable Lines: None Urinary Catheter: No Medications and DC Order Prescriptions: New bumetanide 1 mg Tablet 4 mg PO QAM 30 Days Qty: 120 0RF Continued carvedilol 6.25 mg tablet 6.25 mg PO BID Qty: 180 1RF gabapentin 300 mg capsule 300 mg PO BID Qty: 90 5RF carbidopa-levodopa 25-100 mg tablet See Rx Instructions .ROUTE .COMPLEX Qty: 300 5RF Dose Instruction: TAKE TWO TABLETS BY MOUTH FOUR TIMES DAILY Rx Instructions: 2 tabs po at 8AM, 11AM, 2PM, 5PM, 8PM pramipexole 0.5 mg tablet 0.5 mg PO TID aspirin 81 mg tablet,chewable 81 mg PO QAM Qty: 30 ipratropium-albuterol 0.5 mg-3 mg(2.5 mg base)/3 mL Solution For Nebulization 3 ml INHALATION Q2H PRN (Reason: Shortness Of Breath Or Wheezing) ondansetron HCl 4 mg Tablet 4 mg PO Q6H PRN (Reason: NAUSEA/VOMITING) Rx Instructions: STARTED 07/01/22 FOR 7 DAYS guaifenesin 100 mg/5 mL Liquid 200 mg PO QID Rx Instructions: STARTED 06/22/22 FOR 14 DAYS, TAKES AT 0830, 1230, 1630, & 2030 geriatric [id number] Tablet 1 tab PO QAM atorvastatin 40 mg tablet 40 mg PO HS acetaminophen 325 mg tablet 325 mg PO Q6H MDD 3 GRAMS APAP/24 HOURS PRN (Reason: TEMP >100/PAIN 1-4 SCALE) cetirizine 10 mg tablet 10 mg PO QAM carbidopa-levodopa 50-200 mg tablet extended release 1 tab PO .BID @ 0400 & 1600 Rx Instructions: TAKES AT 0400 & 1600 cimetidine 800 mg tablet 800 mg PO HS tramadol 50 mg tablet 50 mg PO Q8H PRN (Reason: pain) tamsulosin 0.4 mg capsule 0.4 mg PO HS docusate sodium 100 mg capsule 100 mg PO HS fluticasone propionate [Flonase Allergy Relief] 50 mcg/actuation spray,suspension 2 spray INTNAS QAM Rx Instructions: administer into each nostril cholecalciferol (vitamin D3) 50 mcg (2,000 unit) capsule 50 mcg PO QAM Discharge Orders: Discharge Order- CHF (Routine); Ordered 07/08/22 Ordered By: Lilia Nobles Admission Data Admit Date/Time: 07/04/22 19:55 Attending Provider: Lilia Nobles Admit Provider: Marii De Dios Primary Care Provider: [facility] Other Providers: Gadiel Tillman ; Marii DeD ios ; Fox Belcher ; Vick Lindsay ; [facility] [place] Other Interventions: Discharge Summary Assessment (RN) Last Done: 07/08/22 11:37 Coding Level of Care Code 31843 INP/OBS DISCH >30 MIN Diagnoses YULI (acute kidney injury) N17.9 Hyperkalemia E87.5 Acute respiratory failure with hypoxia J96.01 DM2 (diabetes mellitus, type 2) E11.9 Human metapneumovirus (hMPV) pneumonia J12.3 Chronic heart failure with preserved ejection fraction (HFpEF) I50.32 Idiopathic polyneuropathy G60.9 Parkinson's disease G20 Coronary artery disease I25.10 Hypercholesterolemia E78.00 Essential hypertension I10
== END 2022-07-08 15:54 | DRG 682 ==
LOC: ED 16:29 → SUATTDRO 19:55 → EDINP 19:55 → 2W 22:10